=== PATIENT | female | born 1955 | race Caucasian/White ===

== ENCOUNTER 2017-02-18 11:03 | Inpatient (IN) | payer MEDICAID ==
[2017-02-18] VITALS (19 sets, daily range): BP systolic 97–166; BP diastolic 52–98; PULSE 101–121; RESP 12–34; TEMP 98.1–98.5; O2SAT 92–100
[~2017-02-18] VITALS: Ht 165.1 cm; Wt 50.6 kg
[~2017-02-18 11:03] MED LIST: AMBI5TAB PO; ASPI-146 PO; Albuterol-Ipratropium Neb NEB; Budeson-Formot 160-4.5 Mg Inh INH; CIPR-9 PO; COMMODE 3-IN-11 MIS; GETGO ROLLING W1 MI1; HYDR-3580 PO; NEBULIZER1 MI1; OXYGENDME NAS.CANULA; PERI PO; PRED10 PO; THERM PO; VENTAER INH; WALKER WHEELS/F1 MIS; Z.0.OXYGENDME FM
[2017-02-18] MEDS ORDERED: MORPHINE SULFATE 4 MG/ML INJ IV PUSH ONE (11:30)
[2017-02-18] MEDS ORDERED: ONDANSETRON HCL 4 MG/2 ML VIAL IV PUSH ONE (11:30)
--- NOTE | 2017-02-18 11:39 | PD ---
HPI Chief Complaint: Fall Time Seen by Provider: 11:10 Travel History International Travel<30 days: No Contact w/Intl Traveler<30days: No Traveled to known affect area: No History of Present Illness HPI 61 yo female here for evaluation of left hip injury. Had a fall last night. No lost of consciousness. per patient landed on the side of a chair. Has had pain since. obvious shortening and internal rotation of the left hip since injury. Cannot ambulate. Recent injury and surgery on January [address] Nichole. Denies hitting his head or LOC. Denies taking any blood thinners. Allergies to medication. Per patient the pain is 5 out of 10. He hasn't taken anything for this. No other medical issues at this time. Patient was brought here by ambulance. [facility] Past Medical History Arthritis: Yes (RIGHT KNEE) Asthma: No Autoimmune Disease: No Blood Disorders: No Anxiety: No Depression: Yes Heart Rhythm Problems: No Cancer: No Cardiovascular Problems: Yes (HYPOTENSION) High Cholesterol: No Chemotherapy: No Chest Pain: No Congestive Heart Failure: No COPD: Yes Cerebrovascular Accident: No Coronary Artery Disease: No Diabetes: No Diminished Hearing: No Endocrine: No Gastrointestinal Disorders: Yes GERD: No Glaucoma: No Genitourinary: Yes (BLADDER RETENTION ) Headaches: No Hepatitis: No Hiatal Hernia: No Hypertension: No Immune Disorder: No Kidney Stones: No Musculoskeletal: Yes Neurologic: Yes Psychiatric: Yes Reproductive: No Respiratory: Yes Migraines: Yes Myocardial Infarction: No Pneumonia: Yes Radiation Therapy: No Renal Failure: No Seizures: No Sickle Cell Disease: No Sleep Apnea: No Thyroid Disease: No Ulcer: No ?: Not Menopausal: Yes : 1 Para: 1 Tubal Ligation: Yes Past Surgical History Abdominal Surgery: Yes (LAPOROSCOPY) AICD: No Arteriovenous Shunt: No Cardiac Surgery: No Ear Surgery: No Endocrine Surgery: No Eye Surgery: No Genitourinary Surgery: Yes (BLADDER STRETCHED X2) Insulin Pump: No Joint Replacement: Yes (LEFT HIP SURGERY) Oral Surgery: No Pacemaker: No Thoracic Surgery: No Social History Alcohol Use: No Tobacco Use: Yes Substance Use: No Allergies-Medications (Allergen,Severity, Reaction): Coded Allergies: No Known Allergies (Verified Allergy, Unknown, 02/18/17) Reported Meds & Prescriptions Reported Meds & Active Scripts Active Hydrocodone-Acetamin 7.5-325 (Hydrocodone/Acetaminophen) 7.5 Mg-325 Mg Tablet 1 Tab PO Q6HR PRN Prednisone 10 Mg Tab 10 Mg PO DAILY Ventolin Hfa 18 GM Inh (Albuterol Sulfate) 90 Mcg/Act Aer 2 Puff INH Q4-6H PRN Thera M Plus (Multivitamins/Minerals Therapeutic) 1 Tab 1 Tab PO BID Ambien (Zolpidem Tartrate) 5 Mg Tab 5 Mg PO HS PRN Oxygen (O2) Device Liter CEFERINO.CANULA CONTINUOUS Oxygen Concentrator Portable Gaseous 2 L/min via Nasal Canula Continuous For 99 months Reported Miralax Powder (Polyethylene Glycol 3350 Powder) 17 Gm Powd 17 Gm PO DAILY PRN Mix and dissolve one measuring capful (17 grams) in water or juice. Symbicort Inh (Budesonide/Formoterol Fumarate) 160-4.5 Mcg/Act Aero 1 Puff INH Q12HR Duoneb (Ipratropium-Albuterol Neb) 0.5-2.5 Mg/3 Ml Neb 3 Ml NEB Q2HR PRN Aspirin Adult Low Strength (Aspirin) 81 Mg Tabdr 81 Mg PO DAILY Review of Systems Except as stated in HPI: all other systems reviewed are Neg Physical Exam Narrative GENERAL: SKIN: Warm and dry. HEAD: Atraumatic. Normocephalic. EYES: Pupils equal and round. No scleral icterus. No injection or drainage. ENT: No nasal bleeding or discharge. Mucous membranes pink and moist. Tongue is midline. No uvula deviation. NECK: Trachea midline. No JVD. CARDIOVASCULAR: Regular rate and rhythm. No murmurs, S3, S4. RESPIRATORY: No accessory muscle use. Clear to auscultation. Breath sounds equal bilaterally. GASTROINTESTINAL: Abdomen soft, non-tender, nondistended. Hepatic and splenic margins not palpable. MUSCULOSKELETAL: Extremities without clubbing, cyanosis, or edema. No obvious deformities in all extremities with the exception of the left hip for which patient has internal rotation as well as shortening of the leg to the level of the hip. Patient has 2+ pulses bilaterally. Neurovascular intact. Full range of motion of the upper and lower extremities bilaterally with exception of the left hip as stated previously. NEUROLOGICAL: Awake and alert. No obvious cranial nerve deficits. Motor grossly within normal limits. Five out of 5 muscle strength in the arms and legs. Normal speech. PSYCHIATRIC: Appropriate mood and affect; insight and judgment normal. Data Data Last Documented VS Vital Signs Date Time Temp Pulse Resp B/P (MAP) Pulse Ox O2 Delivery O2 Flow Rate FiO2 02/18/17 13:51 112 20 166/84 (111) 98 Nasal Cannula 2.00 02/18/17 11:27 98.3 Orders Orders Electrocardiogram (02/18/17 11:16) Complete Blood Count With Diff (02/18/17 11:16) Basic Metabolic Panel (Bmp) (02/18/17 11:16) Magnesium (Mg) (02/18/17 11:16) Iv Access Insert/Monitor (02/18/17 11:16) Morphine Inj (Morphine Inj) (02/18/17 11:30) Ondansetron Inj (Zofran Inj) (02/18/17 11:30) Hip, Uni(Ap&Lat) W Ap Pelvis (02/18/17 ) Propofol 200 Mg/20 Ml Inj (Diprivan 200 (02/18/17 12:30) Urinary Catheter Insert/Apply (02/18/17 13:33) Immobilizer Knee 20 Inch (02/18/17 ) Vital Signs (Adult) Q4H (02/18/17 15:13) Activity Bed Rest (02/18/17 15:13) Apron Worker / Telemetry .CONTINUOUS (02/18/17 15:13) Diet Npo (02/18/17 Dinner) Sodium Chloride 0.9% Flush (Ns Flush) (02/18/17 15:15) Sodium Chloride 0.9% Flush (Ns Flush) (02/18/17 21:00) Basic Metabolic Panel (Bmp) (02/19/17 06:00) Complete Blood Count With Diff (02/19/17 06:00) Pt Request For Service (02/18/17 15:13) Case Management Consult (02/18/17 15:13) Naloxone Inj (Narcan Inj) (02/18/17 15:15) Consult Orthopedic (02/18/17 ) Morphine Inj (Morphine Inj) (02/18/17 15:15) Albuterol-Ipratropium Neb (Duoneb Neb) (02/18/17 16:00) Albuterol-Ipratropium Neb (Duoneb Neb) (02/18/17 15:15) Resp Oxygen Nasal Cannula (02/18/17 ) Chest, Single Ap (02/18/17 ) Coag Profile (02/18/17 15:17) Type And Screen (02/18/17 15:17) Admit Order (Ed Use Only) (02/18/17 15:18) Labs Laboratory Tests Test 02/18/17 11:40 White Blood Count 16.5 TH/MM3 Red Blood Count 4.44 MIL/MM3 Hemoglobin 14.6 GM/DL Hematocrit 43.4 % Mean Corpuscular Volume 97.7 FL Mean Corpuscular Hemoglobin 32.9 PG Mean Corpuscular Hemoglobin Concent 33.6 % Red Cell Distribution Width 15.5 % Platelet Count 380 TH/MM3 Mean Platelet Volume 8.2 FL Neutrophils (%) (Auto) 78.7 % Lymphocytes (%) (Auto) 12.5 % Monocytes (%) (Auto) 7.7 % Eosinophils (%) (Auto) 0.8 % Basophils (%) (Auto) 0.3 % Neutrophils # (Auto) 13.0 TH/MM3 Lymphocytes # (Auto) 2.1 TH/MM3 Monocytes # (Auto) 1.3 TH/MM3 Eosinophils # (Auto) 0.1 TH/MM3 Basophils # (Auto) 0.0 TH/MM3 CBC Comment DIFF FINAL Differential Comment Blood Urea Nitrogen 25 MG/DL Creatinine 0.63 MG/DL Random Glucose 89 MG/DL Calcium Level 9.5 MG/DL Magnesium Level 1.9 MG/DL Sodium Level 137 MEQ/L Potassium Level 4.4 MEQ/L Chloride Level 101 MEQ/L Carbon Dioxide Level 31.7 MEQ/L Anion Gap 4 MEQ/L Estimat Glomerular Filtration Rate 96 ML/MIN MDM Medical Decision Making Medical Screen Exam Complete: Yes Emergency Medical Condition: Yes Medical Record Reviewed: Yes Interpretation(s) CBC & BMP Diagram 02/18/17 11:40 Calcium Level 9.5, Magnesium Level 1.9 Last Impressions Hip and Pelvis X-Ray 02/18/17 0000 Signed Impressions: Service Date/Time: Saturday, February 18, 2017 12:12 - CONCLUSION: Dislocated left hip prosthesis. Bonifacio Hinojosa MD EKG shows sinus rhythm with no sign of acute ischemia or arrhythmia read by me and attending. Differential Diagnosis X-ray fracture versus dislocation versus contusion versus bruise Narrative Course 61-year-old female that presents to the ED for evaluation of left hip injury. Patient was properly examined and was found to have signs and symptoms concerning for fracture versus dislocation. Labs and imaging ordered. Labs and imaging showed dislocation. Case discussed with my attending Dr. Gonzalez who wants me to consult with Dr. Nichole as he is concerned and spoke the ball and socket dislocated. I spoke with Dr. Nichole who recommends that we try to reduce the dislocation. My attending agree with this. After obtaining written consent by the patient to perform conscious sedation and she agreed to procedure multiple attempts were done by my attending and the residential gas heat technician with no improvement of dislocation. My attending recommends that we speak with the orthopedic surgeon again. Dr Nichole recommends admission to medicine and possible surgery today. This was discussed with the patient agrees to proceed. Dr. hu agrees to admission. Diagnosis Primary Impression: Hip dislocation, left Qualified Codes: S73.005A - Unspecified dislocation of left hip, initial encounter Additional Impression: COPD (chronic obstructive pulmonary disease) Qualified Codes: J44.9 - Chronic obstructive pulmonary disease, unspecified Admitting Information Admitting Physician Requests: Admit Seun Weems Feb 18, 2017 11:39
[2017-02-18] MEDS ORDERED: ASPI81TA16 PO (11:52)
[2017-02-18] MEDS ORDERED: IPRASOL NEB (11:52)
[2017-02-18] MEDS ORDERED: SYMB160A INH (11:52)
[2017-02-18] MEDS ORDERED: MIRA3350 PO (11:53)
[2017-02-18 12:05] LABS: BASOPHIL % 0.3 % (0.0-2.0); EOSINOPHIL # 0.1 TH/MM3 (0-0.4); EOSINOPHIL % 0.8 % (0.0-4.0); HEMATOCRIT 43.4 % (35.0-46.0); HEMO FLAGS DIFF FINAL; LYMPH % 12.5 % (9.0-44.0); LYMPHOCYTE # 2.1 TH/MM3 (1.0-4.8); MEAN CELL VOLUME 97.7 FL (80.0-100.0); MEAN CORPUSCULAR HEMOGLOBIN 32.9 PG (27.0-34.0); MEAN CORPUSCULAR HGB CONC 33.6 % (32.0-36.0); MONO % 7.7 % (0.0-8.0); NEUT % 78.7 % (16.0-70.0); PLATELET COUNT 380 TH/MM3 (150-450); RED BLOOD COUNT 4.44 MIL/MM3 (4.00-5.30); RED CELL DISTRIBUTION WIDTH 15.5 % (11.6-17.2); WHITE BLOOD COUNT 16.5 TH/MM3 (4.0-11.0)
[2017-02-18 12:25] LABS: BICARBONATE 31.7 MEQ/L (21.0-32.0); MAGNESIUM 1.9 MG/DL (1.5-2.5); POTASSIUM 4.4 MEQ/L (3.5-5.1)
[2017-02-18] MEDS ORDERED: PROPOFOL 200 MG/20 ML AMP IV ONE (12:30)
--- NOTE | 2017-02-18 13:17 | RADRPT ---
EXAM DATE/TIME: 02/18/2017 12:12 [facility] COMPARISON: HIP LEFT (AP&LAT 2/3VWS) W AP PELVIS, January 11, 2017, 10:08. INDICATIONS : Left hip pain, fall. MEDICAL HISTORY : None. SURGICAL HISTORY : ORIF left hip ENCOUNTER: Initial ACUITY: 2 days PAIN SCORE: 9/10 LOCATION: Left hip FINDINGS: Examination of the left hip was performed with AP Pelvis. The left hip replacement including the acet abular cup is dislocated superiorly to the acetabulum. Bony structures are intact. There is no eviden ce of acute fracture. CONCLUSION: Dislocated left hip prosthesis. Bonifacio Hinojosa MD on February 18, 2017 at 13:13 Board Certified Radiologist. This report was verified electronically.
--- NOTE | 2017-02-18 13:56 | PD ---
Physical Exam Date Seen by Provider: Feb 18, 2017 Time Seen by Provider: 13:51 Narrative I was asked to see the patient in [place] [id number] for conscious sedation and reduction of a left hip dislocation. The patient was initially seen by Seun Weems PA-C, please refer to the initial history, physical, diagnostic evaluation, and treatment modality plan. Data Data Last Documented VS Vital Signs Date Time Temp Pulse Resp B/P (MAP) Pulse Ox O2 Delivery O2 Flow Rate FiO2 02/18/17 13:51 112 20 166/84 (111) 98 Nasal Cannula 2.00 02/18/17 11:27 98.3 Orders Orders Electrocardiogram (02/18/17 11:16) Complete Blood Count With Diff (02/18/17 11:16) Basic Metabolic Panel (Bmp) (02/18/17 11:16) Magnesium (Mg) (02/18/17 11:16) Iv Access Insert/Monitor (02/18/17 11:16) Morphine Inj (Morphine Inj) (02/18/17 11:30) Ondansetron Inj (Zofran Inj) (02/18/17 11:30) Hip, Uni(Ap&Lat) W Ap Pelvis (02/18/17 ) Propofol 200 Mg/20 Ml Inj (Diprivan 200 (02/18/17 12:30) Urinary Catheter Insert/Apply (02/18/17 13:33) Labs Laboratory Tests Test 02/18/17 11:40 White Blood Count 16.5 TH/MM3 Red Blood Count 4.44 MIL/MM3 Hemoglobin 14.6 GM/DL Hematocrit 43.4 % Mean Corpuscular Volume 97.7 FL Mean Corpuscular Hemoglobin 32.9 PG Mean Corpuscular Hemoglobin Concent 33.6 % Red Cell Distribution Width 15.5 % Platelet Count 380 TH/MM3 Mean Platelet Volume 8.2 FL Neutrophils (%) (Auto) 78.7 % Lymphocytes (%) (Auto) 12.5 % Monocytes (%) (Auto) 7.7 % Eosinophils (%) (Auto) 0.8 % Basophils (%) (Auto) 0.3 % Neutrophils # (Auto) 13.0 TH/MM3 Lymphocytes # (Auto) 2.1 TH/MM3 Monocytes # (Auto) 1.3 TH/MM3 Eosinophils # (Auto) 0.1 TH/MM3 Basophils # (Auto) 0.0 TH/MM3 CBC Comment DIFF FINAL Differential Comment Blood Urea Nitrogen 25 MG/DL Creatinine 0.63 MG/DL Random Glucose 89 MG/DL Calcium Level 9.5 MG/DL Magnesium Level 1.9 MG/DL Sodium Level 137 MEQ/L Potassium Level 4.4 MEQ/L Chloride Level 101 MEQ/L Carbon Dioxide Level 31.7 MEQ/L Anion Gap 4 MEQ/L Estimat Glomerular Filtration Rate 96 ML/MIN [facility] Medical Record Reviewed: Yes Supervised Visit with SHEA: Yes Interpretation(s) Last Impressions Hip and Pelvis X-Ray 02/18/17 0000 Signed Impressions: Service Date/Time: Saturday, February 18, 2017 12:12 - CONCLUSION: Dislocated left hip prosthesis. Bonifacio Hinojosa MD Laboratory Tests Test 02/18/17 11:40 White Blood Count 16.5 TH/MM3 Red Blood Count 4.44 MIL/MM3 Hemoglobin 14.6 GM/DL Hematocrit 43.4 % Mean Corpuscular Volume 97.7 FL Mean Corpuscular Hemoglobin 32.9 PG Mean Corpuscular Hemoglobin Concent 33.6 % Red Cell Distribution Width 15.5 % Platelet Count 380 TH/MM3 Mean Platelet Volume 8.2 FL Neutrophils (%) (Auto) 78.7 % Lymphocytes (%) (Auto) 12.5 % Monocytes (%) (Auto) 7.7 % Eosinophils (%) (Auto) 0.8 % Basophils (%) (Auto) 0.3 % Neutrophils # (Auto) 13.0 TH/MM3 Lymphocytes # (Auto) 2.1 TH/MM3 Monocytes # (Auto) 1.3 TH/MM3 Eosinophils # (Auto) 0.1 TH/MM3 Basophils # (Auto) 0.0 TH/MM3 CBC Comment DIFF FINAL Differential Comment Blood Urea Nitrogen 25 MG/DL Creatinine 0.63 MG/DL Random Glucose 89 MG/DL Calcium Level 9.5 MG/DL Magnesium Level 1.9 MG/DL Sodium Level 137 MEQ/L Potassium Level 4.4 MEQ/L Chloride Level 101 MEQ/L Carbon Dioxide Level 31.7 MEQ/L Anion Gap 4 MEQ/L Estimat Glomerular Filtration Rate 96 ML/MIN Differential Diagnosis Differential diagnosis includes dislocation, fracture, contusion, hematoma, postoperative infection. Narrative Course The patient was initially evaluated by Seun Weems PA-C, please refer to initial history, physical, diagnostic evaluation, treatment modality plan. I was asked to see the patient regards to conscious sedation for reduction of left hip dislocation. The patient was placed on O2, she is on O2 at home via nasal cannula 2 L per day. Respiratory therapy, nursing staff, and remote sensing technician were at bedside. The patient was administered propofol 80 mg intravenously, we're on able to reduce the patient's left hip dislocation. Therefore, patient will be admitted for definitive operative management by her orthopedic surgeon, Dr. Zheng. Procedures Procedure Narrative After the risks and benefits were discussed the following procedure was performed: MODERATE SEDATION: The patient was placed on a radiation monitor and pulse oximetry. An ambu bag and suction was immediately available at bedside. The patient was monitored by the nurse. Oxygen saturation, heart rate and blood pressure were monitored. Procedural sedation was acheived using propofol 80 milligrams. The patient was observed until awake and alert. Procedural Sedation time in attendance was 30 minutes. Production a left hip dislocation was attempted under conscious sedation, however, we were unable to reduce the patient's left hip dislocation. Diagnosis Primary Impression: Hip dislocation, left Qualified Codes: S73.005A - Unspecified dislocation of left hip, initial encounter Admitting Information Admitting Physician Requests: Admit Kojo Gonzalez MD Feb 18, 2017 13:56
--- NOTE | 2017-02-18 14:41 | EKG ---
Date Performed: 02/18/2017 Time Performed: 11:34:00 PTAGE: 61 years EKG: SINUS TACHYCARDIA POSSIBLE RIGHT ATRIAL ENLARGEMENT LEFT ATRIAL ENLARGEMENT ABNORMAL ECG PREVIOUS TRACING : 01/11/2017 16.02 DOCTOR: Ervin Parks Interpretating Date/Time 02/18/2017 14:41:18
[2017-02-18] MEDS ORDERED: NALOXONE HCL 0.4 MG/ML AMP IV PUSH PRN (15:15)
[2017-02-18] MEDS ORDERED: RESP: ALBUTEROL 2.5 MG/IPRATROPIUM 0.5 MG NEB (PRN) NEB (15:15)
[2017-02-18] MEDS ORDERED: SODIUM CHLORIDE 0.9% FLUSH 10 ML FLUSH IV FLUSH PRN (15:15)
[2017-02-18 15:50] LABS: APTT (PATIENT) 25.5 SEC (24.3-30.1); PROTHROMBIN TIME - PATIENT 9.9 SEC (9.8-11.6)
[2017-02-18] MEDS ORDERED: RESP: ALBUTEROL 2.5 MG/IPRATROPIUM 0.5 MG NEB (SCH) NEB (16:00)
--- NOTE | 2017-02-18 16:04 | RADRPT ---
EXAM DATE/TIME: 02/18/2017 15:43 [facility] COMPARISON: CT THORAX W CONTRAST, January 10, 2017, 18:08. CHEST SINGLE AP, January 19, 2017, 15:28. HIP LEFT (AP&LAT 2/3VWS) W AP PELVIS, February 18, 2017, 12:12. INDICATIONS : Shortness of breath MEDICAL HISTORY : Chronic obstructive pulmonary disease SURGICAL HISTORY : None. ENCOUNTER: Initial ACUITY: 1 day PAIN SCORE: 0/10 LOCATION: Bilateral chest FINDINGS: The exam demonstrates moderate COPD changes. These are stable compared to previous study. The heart i s normal in size. The mediastinal contours are within normal limits. The visualized osseous structures are grossly intact. CONCLUSION: 1. COPD changes. Charbel Hernandez MD on February 18, 2017 at 16:00 Board Certified Radiologist. This report was verified electronically.
--- NOTE | 2017-02-18 16:05 | HHI.HP ---
[facility] Kika Perry Admission Diagnosis dislocation left hip arthroplasty, COPD Diagnoses: Travel History International Travel<30 Days: No Contact w/Intl Traveler <30 Da: No Traveled to Known Affected Are: No History of Present Illness History from patient, ER PA communication, and review of medical records. Patient is known to me from her prior hospitalization. Patient reported that early today a.m. around 3 AM or 4 AM, she was using her walker trying to go to the chair and she slipped and fell. She denies hitting her head. denies loss of consciousness. Denies being on blood thinners. She reports that she has had hip hemiarthroplasty on her left hip on January. Her records from that hospitalization reviewed. She reports that after the fall, her helped her to get up and put her to bed. As the morning goes on, she stated the pain was getting worse on her left hip and she was not able to get out of bed therefore finally called ambulance. no other symptoms Review of Systems Except as stated in HPI: all other systems reviewed are Neg Past Family Social History Past Medical History COPD- on home oxygen 2L tachycardia secondary to albuterol Migraine Headaches Past Surgical History Laparoscopy/BTL Urethra dilatation in childhood right hip hemiarthoplasty 01/2017 Allergies: Coded Allergies: No Known Allergies (Verified Allergy, Unknown, 02/18/17) Family History COPD Mother at the age of 73 from ovarian cancer and also had emphysema Father age 93 from complications of Alzheimer's dementia Two sisters are twins and have MS Social History COPD Depression Migraine Headaches . 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 Physical Exam Vital Signs Vital Signs Date Time Temp Pulse Resp B/P (MAP) Pulse Ox O2 Delivery O2 Flow Rate FiO2 02/18/17 13:51 112 20 166/84 (111) 98 Nasal Cannula 2.00 12/13/17 13:48 100 Nasal Cannula 2.00 02/18/17 13:45 111 27 130/80 (97) 100 Nasal Cannula 2.00 02/18/17 13:40 109 31 144/80 (101) 100 Nasal Cannula 2.00 02/18/17 13:37 117 34 141/84 (103) 100 Nasal Cannula 2.00 02/18/17 13:30 100 02/18/17 13:30 100 15.00 02/18/17 13:02 117 18 137/98 (111) 97 Nasal Cannula 2.00 02/18/17 13:00 24 02/18/17 11:27 98.3 118 24 123/80 (94) 100 Nasal Cannula 2.00 02/18/17 11:19 Nasal Cannula 2.00 02/18/17 11:10 98.3 121 28 123/80 (94) 99 Physical Exam GENERAL: This is a well-nourished, well-developed patient, thin lady, in no apparent distress. SKIN: No rashes, ecchymoses or lesions. Cool and dry. HEAD: Atraumatic. Normocephalic. EYES: No scleral icterus. No injection or drainage. ENT: Nose without bleeding, purulent drainage or septal hematoma. Airway patent. NECK: Trachea midline. No JVD CARDIOVASCULAR: Regular rate and rhythm without murmurs, gallops, or rubs. RESPIRATORY: Clear to auscultation. Breath sounds equal bilaterally. No wheezes , rales, or rhonchi. GASTROINTESTINAL: Abdomen soft, non-tender, nondistended. No guarding. MUSCULOSKELETAL: Extremities without clubbing, cyanosis, or edema. No calf tenderness. Left lower extremity shorter than the right with internal rotation. NEUROLOGICAL: Awake and alert. . Normal speech. Laboratory Laboratory Tests Test 02/18/17 11:40 White Blood Count 16.5 Red Blood Count 4.44 Hemoglobin 14.6 Hematocrit 43.4 Mean Corpuscular Volume 97.7 Mean Corpuscular Hemoglobin 32.9 Mean Corpuscular Hemoglobin Concent 33.6 Red Cell Distribution Width 15.5 Platelet Count 380 Mean Platelet Volume 8.2 Neutrophils (%) (Auto) 78.7 Lymphocytes (%) (Auto) 12.5 Monocytes (%) (Auto) 7.7 Eosinophils (%) (Auto) 0.8 Basophils (%) (Auto) 0.3 Neutrophils # (Auto) 13.0 Lymphocytes # (Auto) 2.1 Monocytes # (Auto) 1.3 Eosinophils # (Auto) 0.1 Basophils # (Auto) 0.0 CBC Comment DIFF FINAL Differential Comment Prothrombin Time 9.9 Prothromb Time International Ratio 1.0 Activated Partial Thromboplast Time 25.5 Blood Urea Nitrogen 25 Creatinine 0.63 Random Glucose 89 Calcium Level 9.5 Magnesium Level 1.9 Sodium Level 137 Potassium Level 4.4 Chloride Level 101 Carbon Dioxide Level 31.7 Anion Gap 4 Estimat Glomerular Filtration Rate 96 Result Diagram: 02/18/17 1140 02/18/17 1140 Imaging Last 48 hours Impressions Hip and Pelvis X-Ray 02/18/17 0000 Signed Impressions: Service Date/Time: Saturday, February 18, 2017 12:12 - CONCLUSION: Dislocated left hip prosthesis. MD Shruthi Levy VTE Risk Assessment Shruthi VTE Risk Assessment: Mod/High Risk (score >= 2) Caprini Risk Assessment Model Point Value = 1 Point Value = 2 Point Value = 3 Point Value = 5 Age 41-60 Minor surgery BMI > 25 kg/m2 Swollen legs Varicose veins or History of unexplained or recurrent spontaneous Oral contraceptives or hormone replacement Sepsis (< 1 month) Serious lung disease, including pneumonia (< 1 month) Abnormal pulmonary function Acute myocardial infarction Congestive heart failure (< 1 month) History of inflammatory bowel disease Medical patient at bed rest Age 61-74 Arthroscopic surgery Major open surgery (> 45 min) Laparoscopic surgery (> 45 min) Malignancy Confined to bed (> 72 hours) Immobilizing plaster cast Central venous access Age >= 75 History of VTE Family history of VTE Factor V Leiden Prothrombin [id number] Lupus anticoagulant Anticardiolipin antibodies Elevated serum homocysteine Heparin-induced thrombocytopenia Other congenital or acquired thrombophilia Stroke (< 1 month) Elective arthroplasty Hip, pelvis, or leg fracture Acute spinal cord injury (< 1 month) Prophylaxis Regimen Total Risk Factor Score Risk Level Prophylaxis Regimen 0-1 Low Early ambulation 2 Moderate Order ONE of the following: *Sequential Compression Device (SCD) *Heparin 5000 units SQ BID 3-4 Higher Order ONE of the following medications: *Heparin 5000 units SQ TID *Enoxaparin/Lovenox 40 mg SQ daily (WT < 150 kg, CrCl > 30 mL/min) *Enoxaparin/Lovenox 30 mg SQ daily (WT < 150 kg, CrCl > 10-29 mL/min) *Enoxaparin/Lovenox 30 mg SQ BID (WT < 150 kg, CrCl > 30 mL/min) AND/OR *Sequential Compression Device (SCD) 5 or more Highest Order ONE of the following medications: *Heparin 5000 units SQ TID (Preferred with Epidurals) *Enoxaparin/Lovenox 40 mg SQ daily (WT < 150 kg, CrCl > 30 mL/min) *Enoxaparin/Lovenox 30 mg SQ daily (WT < 150 kg, CrCl > 10-29 mL/min) *Enoxaparin/Lovenox 30 mg SQ BID (WT < 150 kg, CrCl > 30 mL/min) AND *Sequential Compression Device (SCD) Assessment and Plan Assessment and Plan Impression: Status post fall dislocation of right hip prosthesis not able to be reduced in ER o2 dependent COPD- on home oxygen 2L tachycardia secondary to albuterol Migraine Headaches Plan: Case discussed with orthopedics Dr. Nichole by ER physician. OR in a.m. NPO past midnight In ER, it was attempted to have the dislocated prosthesis placed back in to anesthesia. However it was unsuccessful and patient also desaturated because of anesthesia. She would need careful monitoring in OR. Start patient on Atrovent nebs. Resume rest of her medications. DVT prophylaxis with Lovenox postoperatively. Currently we'll provide SCD. Discussed Condition With patient, ER PA, nursing staff Physician Certification 2 Midnight Certification Type: Admission for Inpatient Services Order for Inpatient Services The services are ordered in accordance with Medicare regulations or non- Medicare payer requirements, as applicable. In the case of services not specified as inpatient-only, they are appropriately provided as inpatient services in accordance with the 2-midnight benchmark. Estimated LOS (days): 2 days is the estimated time the patient will need to remain in the hospital, assuming treatment plan goals are met and no additional complications. Post-Hospital Plan: Not yet determined Allen Rodriguez MD Feb 18, 2017 16:05
[2017-02-18] MEDS ORDERED: POLYETHYLENE GLYCOL 17 GM PKG PO PRN (16:30)
[2017-02-18] MEDS ORDERED: RESP: IPRATROPIUM 0.5 MG/2.5 ML NEB NEB PRN (16:30)
--- NOTE | 2017-02-18 19:11 | MB ---
cc: ENRIQUE BABB DATE OF CONSULTATION 02/18/2017 REASON FOR CONSULTATION Left hip dislocation. HISTORY The patient is a 59-year-old female who underwent left hip hemiarthroplasty on January 10, 2017 by the undersigned. The surgery was unremarkable. The patient was at home she says that she slipped and fell hitting a chair and then landing onto the ground and when she landed she noticed deformity and pain about the left hip. She was brought to [facility]. She was found to have a posterior hip dislocation. They did attempt closed reduction in the emergency room, this was unsuccessful. They called me to see if we can move forward with her reduction of the hip. The patient does not take any blood thinners. The patient does have COPD. Apparently she tolerated the attempted closed reduction without difficulty with her breathing. She describes pain around the hip. She does not describe any specific new numbness or tingling going down the left leg. PAST MEDICAL HISTORY Positive for: 1. Arthritis. 2. Hypotension. 3. Bladder retention. 4. Pneumonia. 5. And COPD. PAST SURGICAL HISTORY See the chart and as above. SOCIAL HISTORY The patient does not drink alcohol. She does smoke tobacco. ALLERGIES NO KNOWN DRUG ALLERGIES. MEDICATIONS See the chart. REVIEW OF SYSTEMS A 12 point review of systems is negative except as noted in the history of present illness. PHYSICAL EXAMINATION VITAL SIGNS: The patient's temperature is not recorded. Pulse is 112, respirations 22, blood pressure 166/84. GENERAL: She is awake, alert and oriented x3. Normal affect, insight and judgment. She is only in minimal distress due to the pain of the left hip. HEENT: Her head is atraumatic. Extraocular muscles intact. Oropharynx is moist. NECK: Supple. LUNGS: Have no audible wheeze and have symmetric chest wall rises with normal inspiratory effort. ABDOMEN: The abdomen is soft, nontender, nondistended. EXTREMITIES: The extremities of the bilateral wrists, elbows and shoulders did not have any significant tenderness. The left hip is internally rotated with some mild swelling. She has a well-healed posterior incision. There is only some mild swelling. No open wounds are noted. She does have tenderness to palpation of the proximal femur. The left knee has no effusion and no tenderness. She actually moves the toes well and has a 2+ dorsalis pedis pulse on the left foot. Right knee and right ankle have no swelling. There is no tenderness either. LABORATORY DATA The laboratory analysis shows hematocrit of 43.4, white cell count of 16.5, platelets of 380. Coagulation is pending. Chemistries creatinine 0.63. IMAGING X-rays are reviewed. The images and report shows the patient has a left hip hemiarthroplasty which is dislocated. The components appear to be intact without failure other than a new traumatic dislocation. IMPRESSION 1. Status post left hip hemiarthroplasty for a fracture on January 10, 2017. 2. New traumatic fall sustaining a traumatic left hip posterior dislocation which is irreducible per the emergency room staff. MEDICAL DECISION-MAKING I discussed the diagnosis in details with the patient. We discussed treatment options. I would like to move forward with a closed reduction attempt in the operative theater since the ER physician was unable to accomplish the closed reduction in the ER. We did discuss with her that if closed reduction attempt is unsuccessful, it is possible we could need to move forward with an open reduction of the hip through an incision which does increase the risks such as bleeding, infection, medical complications, heart attack, stroke, pneumonia, etc. Other options include revision of components, although when I go back and look at the original films she had very good leg lengths in appropriate positions to the components so revising this may or may not be ultimately necessary. She does want to move forward with surgical management. Depending on the findings I discussed the patient that either I will do it or it is possible my partner Dr. Humble Julian may move forward with the management having to do with operating room availability and trying to expedite this patient's care. All questions have been answered. MD MADDIE Rivera/KK /3:40 PM /6:35 PM JUANITO
[2017-02-18] MEDS: MORPHINE SULFATE 2 MG/ML INJ IV PUSH PRN (19:20)
[2017-02-18] MEDS: FAMOTIDINE 20 MG TAB PO SCH (19:20)
[2017-02-18] MEDS: SODIUM CHLORIDE 0.9% FLUSH 10 ML FLUSH IV FLUSH SCH (19:21)
[2017-02-18] MEDS: BUDESONIDE-FORMOTEROL 160/4.5 MCG INHALER INH SCH (21:16)
[2017-02-19] VITALS (10 sets, daily range): BP systolic 84–105; BP diastolic 51–65; PULSE 84–117; RESP 16–22; TEMP 98–99.4; O2SAT 90–97
[2017-02-19] MEDS: MORPHINE SULFATE 2 MG/ML INJ IV PUSH PRN ×2 (00:30→06:32)
[2017-02-19] MEDS ORDERED: LACTATED RINGER'S 1000 ML IV PRN (04:00)
[2017-02-19] MEDS ORDERED: POVIDONE IODINE 5% (ANTISEPSIS KIT) 4 APPLICATIONS EACH NARE PRN (04:00)
[2017-02-19] MEDS ORDERED: CHLORHEXIDINE GLUCONATE 2 % 1 PACK (2 CLOTHS) TOPICAL PRN (04:00)
[2017-02-19] MEDS: RESP: IPRATROPIUM 0.5 MG/2.5 ML NEB NEB SCH ×5 (04:58→21:19)
[2017-02-19 06:58] LABS: AUTOMATED NEUTROPHIL # 5.8 TH/MM3 (1.8-7.7); BASOPHIL % 0.5 % (0.0-2.0); EOSINOPHIL # 0.2 TH/MM3 (0-0.4); EOSINOPHIL % 1.7 % (0.0-4.0); HEMATOCRIT 32.4 % (35.0-46.0); HEMO FLAGS DIFF FINAL; LYMPH % 26.2 % (9.0-44.0); LYMPHOCYTE # 2.5 TH/MM3 (1.0-4.8); MEAN CELL VOLUME 96.7 FL (80.0-100.0); MEAN CORPUSCULAR HEMOGLOBIN 32.4 PG (27.0-34.0); MEAN CORPUSCULAR HGB CONC 33.6 % (32.0-36.0); MONO % 9.9 % (0.0-8.0); NEUT % 61.7 % (16.0-70.0); PLATELET COUNT 321 TH/MM3 (150-450); RED BLOOD COUNT 3.35 MIL/MM3 (4.00-5.30); RED CELL DISTRIBUTION WIDTH 15.1 % (11.6-17.2); WHITE BLOOD COUNT 9.5 TH/MM3 (4.0-11.0)
--- NOTE | 2017-02-19 07:02 | PD.ORT.PN ---
Subjective Subjective Remarks s/p fall at home. left hip pain. no other complaints s/p left hip hemiarthroplasty by Dr Nichole Objective Vitals Vital Signs Date Time Temp Pulse Resp B/P (MAP) Pulse Ox O2 Delivery O2 Flow Rate FiO2 02/19/17 05:04 93 Nasal Cannula 2.00 02/19/17 05:03 98.8 114 22 100/58 (72) 92 02/19/17 04:46 105 02/19/17 04:46 108 02/19/17 04:00 Nasal Cannula 2.00 02/19/17 00:56 99.4 117 16 104/51 (68) 90 02/19/17 00:00 Nasal Cannula 2.00 02/18/17 23:43 114 02/18/17 20:59 98.5 108 18 97/52 (67) 92 02/18/17 20:00 Nasal Cannula 2.00 02/18/17 19:48 107 02/18/17 17:31 98.1 109 18 105/58 (74) 94 02/18/17 17:31 02/18/17 17:12 103 22 108/67 (81) 100 Nasal Cannula 2.00 02/18/17 16:30 108 21 119/75 (90) 100 Nasal Cannula 2.00 02/18/17 16:00 101 12 117/68 (84) 100 Nasal Cannula 2.00 02/18/17 15:00 116 15 124/90 (101) 98 Nasal Cannula 2.00 02/18/17 14:30 118 23 133/82 (99) 100 Nasal Cannula 2.00 02/18/17 14:00 114 23 155/81 (105) 98 Nasal Cannula 2.00 02/18/17 13:51 112 20 166/84 (111) 98 Nasal Cannula 2.00 02/18/17 13:48 100 Nasal Cannula 2.00 02/18/17 13:45 111 27 130/80 (97) 100 Nasal Cannula 2.00 02/18/17 13:40 109 31 144/80 (101) 100 Nasal Cannula 2.00 02/18/17 13:37 117 34 141/84 (103) 100 Nasal Cannula 2.00 02/18/17 13:30 100 02/18/17 13:30 100 15.00 02/18/17 13:02 117 18 137/98 (111) 97 Nasal Cannula 2.00 02/18/17 13:00 24 02/18/17 11:27 98.3 118 24 123/80 (94) 100 Nasal Cannula 2.00 02/18/17 11:19 Nasal Cannula 2.00 02/18/17 11:10 98.3 121 28 123/80 (94) 99 I/O 02/18/17 02/18/17 02/18/17 02/19/17 02/19/17 02/19/17 07:00 15:00 23:00 07:00 15:00 23:00 Intake Total 120 ml Output Total 700 ml Balance -700 ml 120 ml Intake Oral 120 ml Output Urine Total 700 ml # Voids 0 0 # Bowel Movements 0 Result Diagram: 02/18/17 1140 02/18/17 1140 Other Results Laboratory Tests Test 02/18/17 11:40 Prothromb Time International Ratio 1.0 RATIO Prothrombin Time 9.9 SEC (9.8-11.6) Objective Remarks LLE: pain with motion. nvi Assessment & Plan Assessment and Plan 1) Left Hip Hemiarthroplasty s/p dislocation -npo -consents -surgery today for closed vs open reduction of left hip with Moose Murphy/Yard Conductor PA Feb 19, 2017 07:02
[2017-02-19 07:41] LABS: BICARBONATE 33.3 MEQ/L (21.0-32.0); POTASSIUM 3.9 MEQ/L (3.5-5.1)
[2017-02-19] MEDS: BUDESONIDE-FORMOTEROL 160/4.5 MCG INHALER INH SCH ×2 (09:00→21:46)
[2017-02-19] MEDS ORDERED: PNEUMOCOCCAL POLYVALENT INJ 25 MCG/0.5 ML SYR IM ONE (10:00)
[2017-02-19] MEDS ORDERED: DO NOT ADM ANY ANTICOAGULANT DRUGS PRN (10:20)
--- NOTE | 2017-02-19 10:21 | PD.OP ---
cc: Humble Killian MD Operative Report Date of Surgery: Feb 19, 2017 Preoperative Diagnosis: Dislocated left hip hemiarthroplasty Postoperative Diagnosis: Procedure: Closed reduction of left hip dislocation under anesthesia Anesthesia: Gen. Surgeon: Humble Killian Loader(s): Pablo Santizo PA-C Operation and Findings: Toyin is a 61-year-old female who sustained a left femoral neck fracture approximately 6 weeks ago. She was treated with left hip hemiarthroplasty by Dr. Nichole. Patient was doing well until yesterday when she slipped on a tile floor and fell. She had immediate left hip pain and deformity. She presented emergency room where x-rays revealed a left hip dislocated hemiarthroplasty. Informed consent was obtained and operative site was marked. She is brought to operating room. She was given IV sedation and LMA. Timeout procedure was performed. Procedure began with gentle manipulation of the hip. Traction was applied. The hip was gently rotated. The hip was manually reduced. Patient had good range of motion with good stability once the hip was reduced. Multiplanar fluoroscopy confirmed concentric reduction of the hip. There is no evidence of acute fracture. Patient was placed into a knee immobilizer. She was awakened and transferred to recovery room in stable condition. Humble Killian MD Feb 19, 2017 10:21
[2017-02-19] MEDS ORDERED: *morphine SULFATE 8 MG/ML PERIprocedure ONLY ONE (10:29)
[2017-02-19] MEDS ORDERED: MORPHINE SULFATE 4 MG/ML INJ IV PUSH PRN (10:30)
--- NOTE | 2017-02-19 11:28 | HHI.PR ---
Subjective Remarks Patient seen postoperatively. She reports she is feeling okay except for mild discomfort of the left hip. Objective Vitals Vital Signs Date Time Temp Pulse Resp B/P (MAP) Pulse Ox O2 Delivery O2 Flow Rate FiO2 02/19/17 10:24 98.6 100 15 108/64 (79) 95 Nasal Cannula 3 02/19/17 08:00 98.6 101 20 84/52 (63) 95 02/19/17 05:04 93 Nasal Cannula 2.00 02/19/17 05:03 98.8 114 22 100/58 (72) 92 02/19/17 04:46 105 02/19/17 04:46 108 02/19/17 04:00 Nasal Cannula 2.00 02/19/17 00:56 99.4 117 16 104/51 (68) 90 02/19/17 00:00 Nasal Cannula 2.00 02/18/17 23:43 114 02/18/17 20:59 98.5 108 18 97/52 (67) 92 02/18/17 20:00 Nasal Cannula 2.00 02/18/17 19:48 107 02/18/17 17:31 98.1 109 18 105/58 (74) 94 02/18/17 17:31 02/18/17 17:12 103 22 108/67 (81) 100 Nasal Cannula 2.00 02/18/17 16:30 108 21 119/75 (90) 100 Nasal Cannula 2.00 02/18/17 16:00 101 12 117/68 (84) 100 Nasal Cannula 2.00 02/18/17 15:00 116 15 124/90 (101) 98 Nasal Cannula 2.00 02/18/17 14:30 118 23 133/82 (99) 100 Nasal Cannula 2.00 02/18/17 14:00 114 23 155/81 (105) 98 Nasal Cannula 2.00 02/18/17 13:51 112 20 166/84 (111) 98 Nasal Cannula 2.00 02/18/17 13:48 100 Nasal Cannula 2.00 02/18/17 13:45 111 27 130/80 (97) 100 Nasal Cannula 2.00 02/18/17 13:40 109 31 144/80 (101) 100 Nasal Cannula 2.00 02/18/17 13:37 117 34 141/84 (103) 100 Nasal Cannula 2.00 02/18/17 13:30 100 02/18/17 13:30 100 15.00 02/18/17 13:02 117 18 137/98 (111) 97 Nasal Cannula 2.00 02/18/17 13:00 24 I/O 02/18/17 02/18/17 02/18/17 02/19/17 02/19/17 02/19/17 07:00 15:00 23:00 07:00 15:00 23:00 Intake Total 120 ml 200 ml Output Total 700 ml Balance -700 ml 120 ml 200 ml Intake Oral 120 ml IV Total 200 ml Output Urine Total 700 ml # Voids 0 0 # Bowel Movements 0 Result Diagram: 02/19/17 0545 02/19/17 0545 Objective Remarks GENERAL: This is a well-nourished, well-developed patient, in no apparent distress. CARDIOVASCULAR: Normal rate and regular rhythm without murmurs, gallops, or rubs. RESPIRATORY: Good respiratory efforts. Breath sounds equal and clear to auscultation bilaterally. GASTROINTESTINAL: Abdomen soft, non-tender, non-distended. Normal active bowel sounds MUSCULOSKELETAL: Extremities without cyanosis, or edema. NEURO: Alert & Oriented x4 to person, place, time, situation. Moves all ext x4 PSYCH: Appropriate mood and affect. A/P Assessment and Plan 61-year-old female admitted after sustaining a mechanical fall and dislocation of right hip prosthesis. - Unable to be reduced in the emergency room. The patient is being followed by orthopedics. She underwent closed reduction of left hip dislocation under anesthesia - Continue PT. COPD: Not in exacerbation. - Continue home O2. Breathing treatments as needed. Continue home meds. DVT prophylaxis, start Tien Craig MD Feb 19, 2017 11:28
--- NOTE | 2017-02-19 13:28 | RADRPT ---
EXAM DATE/TIME: 02/19/2017 10:12 [facility] COMPARISON: No previous studies available for comparison. INDICATIONS : Left hip reduction in OR. MEDICAL HISTORY : Chronic obstructive pulmonary disease. SURGICAL HISTORY : None. ENCOUNTER: Initial ACUITY: 1 day PAIN SCORE: Non-responsive. LOCATION: Left hip FINDINGS: Intraprocedural fluoroscopy images of the left hip. Left hip arthroplasty with components in anatomic alignment and well-positioned. No gross bony fracture. CONCLUSION: 1. Status post left hip arthroplasty in anatomic alignment without significant bony fracture. Leonel Dominguez MD on February 19, 2017 at 13:26 Board Certified Radiologist. This report was verified electronically.
[2017-02-19] MEDS: ACETAMINOPHEN/HYDROcodone 325 MG/5 MG TAB PO PRN ×3 (14:02→21:56)
[2017-02-19] MEDS: ASPIRIN EC 81 MG TABEC PO SCH (14:03)
[2017-02-19] MEDS: predniSONE 10 MG TAB PO SCH (14:03)
[2017-02-19] MEDS: FAMOTIDINE 20 MG TAB PO SCH ×2 (14:03→21:46)
[2017-02-19] MEDS: SODIUM CHLORIDE 0.9% FLUSH 10 ML FLUSH IV FLUSH SCH ×2 (14:03→21:47)
[2017-02-19] MEDS: ENOXAPARIN SODIUM 40 MG/0.4 ML SYRINGE SQ SCH (21:46)
[2017-02-20] VITALS (8 sets, daily range): BP systolic 91–109; BP diastolic 52–84; PULSE 89–104; RESP 16–22; TEMP 98.1–98.8; O2SAT 90–96
[2017-02-20] MEDS: RESP: IPRATROPIUM 0.5 MG/2.5 ML NEB NEB SCH ×4 (03:46→22:00)
[2017-02-20] MEDS: ACETAMINOPHEN/HYDROcodone 325 MG/5 MG TAB PO PRN ×2 (04:04→06:45)
--- NOTE | 2017-02-20 07:20 | PD.ORT.PN ---
Subjective Subjective Remarks s/p fall at home. left hip pain. no other complaints s/p left hip hemiarthroplasty by Dr Nichole POd 1 s/p closed reduction of left hip dislocation doing well. reports pain that is not controlled by norco 5 Objective Vitals Vital Signs Date Time Temp Pulse Resp B/P (MAP) Pulse Ox O2 Delivery O2 Flow Rate FiO2 02/20/17 04:00 98.5 94 22 98/54 (69) 96 02/20/17 04:00 94 02/20/17 00:00 98.4 98 22 97/52 (67) 92 02/20/17 00:00 98 02/19/17 21:21 94 Nasal Cannula 3.00 02/19/17 20:00 Nasal Cannula 2.00 02/19/17 20:00 84 02/19/17 20:00 98.0 89 19 95/56 (69) 97 02/19/17 16:00 98.0 94 20 105/55 (72) 97 02/19/17 15:20 20 02/19/17 13:30 95 Nasal Cannula 3.00 02/19/17 12:00 98.4 97 20 101/65 (77) 95 02/19/17 11:15 98.6 91 18 97/57 (70) 99 Nasal Cannula 3 02/19/17 11:00 93 18 93/55 (68) 97 Nasal Cannula 3 02/19/17 10:45 91 17 96/52 (67) 97 Nasal Cannula 3 02/19/17 10:30 98 15 102/59 (73) 93 Nasal Cannula 3 02/19/17 10:24 98.6 100 15 108/64 (79) 95 Nasal Cannula 3 02/19/17 08:00 98.6 101 20 84/52 (63) 95 I/O 02/19/17 02/19/17 02/19/17 02/20/17 02/20/17 02/20/17 07:00 15:00 23:00 07:00 15:00 23:00 Intake Total 200 ml 200 ml Output Total 500 ml Balance 200 ml -300 ml Intake Oral 200 ml IV Total 200 ml Output Urine Total 500 ml # Bowel Movements 0 Result Diagram: 02/19/17 0545 02/19/1745 Objective Remarks LLE: +knee brace. good motion of ankle and toes. nvi Assessment & Plan Assessment and Plan 1) Left Hip Hemiarthroplasty s/p dislocation with closed reduction - POD1 -posterior hip precautions -WBAT -knee brace at all times -if doing well with therapy today, plan for DC home with [facility] -will follow up with Dr Nichole in 2 weeks Moose Duffy/First Torie CALVILLO Feb 20, 2017 07:20
--- NOTE | 2017-02-20 07:21 | HHI.FF ---
Face to Face Verification Diagnosis: (1) Hip dislocation, left Physical Therapy Gait training Hip: Total hip, Protocol: Left, Posterior hip precautions, Progress to weight bearing Canvas Knee Splint: At all times Left LE Weight Bearing: WB as tolerated I have seen patient Toyin Nelson on 02/20/17. My clinical findings support the need for the requested home health care services because: Ltd mobility - disease progression I certify that my clinical findings support that this patient is homebound because: Post-op weakness Moose Duffy/Scientific Research Associate PA Feb 20, 2017 07:21
[2017-02-20] MEDS ORDERED: ACETAMINOPHEN/HYDROcodone 325 MG/5 MG TAB PO PRN (07:30)
[2017-02-20 07:52] LABS: HEMATOCRIT 32.1 % (35.0-46.0); MEAN CELL VOLUME 97.3 FL (80.0-100.0); MEAN CORPUSCULAR HEMOGLOBIN 32.3 PG (27.0-34.0); MEAN CORPUSCULAR HGB CONC 33.3 % (32.0-36.0); PLATELET COUNT 277 TH/MM3 (150-450); RED CELL DISTRIBUTION WIDTH 15.5 % (11.6-17.2); REVIEW FLAG FINAL; WHITE BLOOD COUNT 8.9 TH/MM3 (4.0-11.0)
[2017-02-20] MEDS: BUDESONIDE-FORMOTEROL 160/4.5 MCG INHALER INH SCH ×2 (09:01→20:29)
[2017-02-20] MEDS: SODIUM CHLORIDE 0.9% FLUSH 10 ML FLUSH IV FLUSH SCH ×2 (09:01→20:28)
[2017-02-20] MEDS: ASPIRIN EC 81 MG TABEC PO SCH (09:01)
[2017-02-20] MEDS: predniSONE 10 MG TAB PO SCH (09:01)
[2017-02-20] MEDS: FAMOTIDINE 20 MG TAB PO SCH ×2 (09:01→20:28)
[2017-02-20] MEDS: CHOLECALCIFEROL (VIT D3) 5000 UNIT CAP PO SCH (09:01)
[2017-02-20] MEDS: ACETAMINOPHEN/HYDROcodone 325 MG/7.5 MG TAB PO PRN ×4 (09:46→22:40)
--- NOTE | 2017-02-20 12:45 | HHI.PR ---
Subjective Remarks Patient reports she is feeling okay except for pain. Her pain medication has been adjusted. No other issues. Objective Vitals Vital Signs Date Time Temp Pulse Resp B/P (MAP) Pulse Ox O2 Delivery O2 Flow Rate FiO2 02/20/17 12:00 98.6 104 16 109/66 (80) 93 02/20/17 11:31 92 Nasal Cannula 2.00 02/20/17 08:00 98.8 89 16 91/60 (70) 90 02/20/17 04:00 98.5 94 22 98/54 (69) 96 02/20/17 04:00 94 02/20/17 00:00 98.4 98 22 97/52 (67) 92 02/20/17 00:00 98 02/19/17 21:21 94 Nasal Cannula 3.00 02/19/17 20:00 Nasal Cannula 2.00 02/19/17 20:00 84 02/19/17 20:00 98.0 89 19 95/56 (69) 97 02/19/17 16:00 98.0 94 20 105/55 (72) 97 02/19/17 15:20 20 02/19/17 13:30 95 Nasal Cannula 3.00 I/O 02/19/17 02/19/17 02/19/17 02/20/17 02/20/17 02/20/17 07:00 15:00 23:00 07:00 15:00 23:00 Intake Total 200 ml 200 ml Output Total 500 ml Balance 200 ml -300 ml Intake Oral 200 ml IV Total 200 ml Output Urine Total 500 ml # Bowel Movements 0 Result Diagram: 02/20/17 0648 02/19/17 0545 Objective Remarks GENERAL: This is a well-nourished, well-developed patient, in no apparent distress. CARDIOVASCULAR: Normal rate and regular rhythm without murmurs, gallops, or rubs. RESPIRATORY: Good respiratory efforts. Breath sounds equal and clear to auscultation bilaterally. GASTROINTESTINAL: Abdomen soft, non-tender, non-distended. Normal active bowel sounds MUSCULOSKELETAL: Extremities without cyanosis, or edema. NEURO: Alert & Oriented x4 to person, place, time, situation. Moves all ext x4 PSYCH: Appropriate mood and affect. A/P Assessment and Plan 61-year-old female admitted after sustaining a mechanical fall and dislocation of right hip prosthesis. - Unable to be reduced in the emergency room. The patient is being followed by orthopedics. She underwent closed reduction of left hip dislocation under anesthesia - Continue PT. - Per Ortho, likely DC in AM with HHC and PT. COPD: Not in exacerbation. - Continue home O2. Breathing treatments as needed. Continue home meds. DVT prophylaxis: Lovenox Discharge Planning Plan to DC home with home health in a.. Tien Butler MD Feb 20, 2017 12:45
[2017-02-20] MEDS: MORPHINE SULFATE 2 MG/ML INJ IV PUSH PRN ×2 (16:57→20:29)
[2017-02-20] MEDS: ENOXAPARIN SODIUM 40 MG/0.4 ML SYRINGE SQ SCH (20:28)
[2017-02-21] VITALS (10 sets, daily range): BP systolic 97–119; BP diastolic 54–68; PULSE 83–95; RESP 16–20; TEMP 98.1–99; O2SAT 92–98
[2017-02-21] MEDS: MORPHINE SULFATE 2 MG/ML INJ IV PUSH PRN ×2 (00:28→05:25)
[2017-02-21] MEDS: RESP: IPRATROPIUM 0.5 MG/2.5 ML NEB NEB SCH ×4 (02:21→20:34)
[2017-02-21] MEDS: ACETAMINOPHEN/HYDROcodone 325 MG/7.5 MG TAB PO PRN ×6 (02:41→23:58)
--- NOTE | 2017-02-21 05:31 | RADRPT ---
EXAM DATE/TIME: 02/21/2017 04:47 [facility] COMPARISON: CHEST SINGLE AP, February 18, 2017, 15:43. INDICATIONS : Chest pain. MEDICAL HISTORY : Chronic obstructive pulmonary disease. SURGICAL HISTORY : ORIF left hip ENCOUNTER: Initial ACUITY: 1 day PAIN SCORE: 10/10 LOCATION: Left chest FINDINGS: Single AP view of the chest.. Mild patchy atelectasis versus consolidation at the inferior left lung base. Lungs otherwise clear. Hyperaeration suggesting emphysema. No evidence of pleural effusion or p neumothorax. Cardiomediastinal silhouette within normal limits. CONCLUSION: Mild patchy atelectasis versus consolidation left lung base. Espinoza Chavez MD on February 21, 2017 at 5:27 Board Certified Radiologist. This report was verified electronically.
[2017-02-21] MEDS: predniSONE 10 MG TAB PO SCH (08:14)
[2017-02-21] MEDS: FAMOTIDINE 20 MG TAB PO SCH ×2 (08:14→19:59)
[2017-02-21] MEDS: ASPIRIN EC 81 MG TABEC PO SCH (08:15)
[2017-02-21] MEDS: CHOLECALCIFEROL (VIT D3) 5000 UNIT CAP PO SCH (08:15)
[2017-02-21] MEDS: BUDESONIDE-FORMOTEROL 160/4.5 MCG INHALER INH SCH ×2 (08:16→19:59)
[2017-02-21] MEDS: SODIUM CHLORIDE 0.9% FLUSH 10 ML FLUSH IV FLUSH SCH ×2 (08:17→20:00)
--- NOTE | 2017-02-21 10:37 | EKG ---
Date Performed: 02/21/2017 Time Performed: 04:41:58 PTAGE: 61 years EKG: Normal ECG NO PREVIOUS TRACING DOCTOR: Derrick Barfield Interpretating Date/Time 02/21/2017 10:35:10
[2017-02-21] MEDS ORDERED: PNEUMOCOCCAL POLYVALENT INJ 25 MCG/0.5 ML SYR IM ONE (13:00)
--- NOTE | 2017-02-21 13:33 | HHI.PR ---
Subjective Remarks Patient is having left sided pleuritic chest pain. Chest x-ray concerning for pneumonia. urinary retention requiring straight cath. She reports a history of bladder procedure when she was about 7 years old. She does not remember the details. Objective Vitals Vital Signs Date Time Temp Pulse Resp B/P (MAP) Pulse Ox O2 Delivery O2 Flow Rate FiO2 02/21/17 12:03 99.0 92 18 97/54 (68) 94 02/21/17 09:05 92 Nasal Cannula 2.00 02/21/17 08:00 98.5 90 18 119/65 (83) 94 02/21/17 08:00 93 02/21/17 07:00 2.00 02/21/17 04:00 84 02/21/17 04:00 98.4 88 16 109/68 (82) 95 02/21/17 00:00 83 02/21/17 00:00 98.4 88 18 105/66 (79) 97 02/20/17 22:00 96 Nasal Cannula 2.00 02/20/17 20:00 98.1 99 18 93/84 (87) 91 02/20/17 20:00 Nasal Cannula 2.00 02/20/17 20:00 95 02/20/17 16:00 95 02/20/17 16:00 98.8 97 16 101/58 (72) 94 I/O 02/20/17 02/20/17 02/20/17 02/21/17 02/21/17 02/21/17 07:00 15:00 23:00 07:00 15:00 23:00 Intake Total 200 ml 520 ml Output Total 500 ml 200 ml 1200 ml 450 ml Balance -300 ml -200 ml -680 ml -450 ml Intake Oral 200 ml 520 ml Output Urine Total 500 ml 200 ml 1200 ml 450 ml Bladder Scan Volume Amount 18 ml 250 ml 18 ml 382 ml 382 ml # Voids 0 # Bowel Movements 0 1 Result Diagram: 02/20/17 0648 02/19/17 0545 Objective Remarks GENERAL: This is a well-nourished, well-developed patient, in no apparent distress. CARDIOVASCULAR: Normal rate and regular rhythm without murmurs, gallops, or rubs. RESPIRATORY: Good respiratory efforts. Diminished breath sounds on the left base. Some discomfort with deep breathing. Rest of the lung lacey clear to auscultation. GASTROINTESTINAL: Abdomen soft, non-tender, non-distended. Normal active bowel sounds MUSCULOSKELETAL: Extremities without cyanosis, or edema. NEURO: Alert & Oriented x4 to person, place, time, situation. Moves all ext x4 PSYCH: Appropriate mood and affect. A/P Assessment and Plan 61-year-old female admitted after sustaining a mechanical fall and dislocation of right hip prosthesis. - Unable to be reduced in the emergency room. The patient is being followed by orthopedics. She underwent closed reduction of left hip dislocation under anesthesia - Continue PT. Early pneumonia: Patient is having pleuritic type chest pain. Chest x-ray personally reviewed. There is consolidation involving the left lower base. - Start Levaquin. - Breathing treatment as needed. - Supplemental oxygen as needed. Urinary retention: Postop day 3. - Patient endorsed a history of bladder procedures when she was a child. Straight cath 1 today. - Continue to monitor. If no improvement, will consult urology COPD: Not in exacerbation. - Continue home O2. Breathing treatments as needed. Continue home meds. DVT prophylaxis: Lovenox Discharge Planning Continue current treatment. Ensure urinary retention is resolving. Antibiotics for pneumonia. Reassess tomorrow. If cleared by Ortho and improved , may consider discharge with home health.. Tien Butler MD Feb 21, 2017 13:33
[2017-02-21] MEDS: LEVOFLOXACIN 750 MG PREMIX INJ 150 ML IV SCH (13:50)
[2017-02-21 14:20] LABS: AUTOMATED NEUTROPHIL # 7.7 TH/MM3 (1.8-7.7); BASOPHIL % 0.4 % (0.0-2.0); EOSINOPHIL % 0.4 % (0.0-4.0); HEMO FLAGS DIFF FINAL; LYMPH % 9.4 % (9.0-44.0); LYMPHOCYTE # 0.9 TH/MM3 (1.0-4.8); MEAN CELL VOLUME 96.6 FL (80.0-100.0); MEAN CORPUSCULAR HEMOGLOBIN 32.3 PG (27.0-34.0); MEAN CORPUSCULAR HGB CONC 33.4 % (32.0-36.0); MONO % 4.5 % (0.0-8.0); NEUT % 85.3 % (16.0-70.0); PLATELET COUNT 302 TH/MM3 (150-450); RED BLOOD COUNT 3.52 MIL/MM3 (4.00-5.30); RED CELL DISTRIBUTION WIDTH 15.5 % (11.6-17.2)
[2017-02-21] MEDS: ENOXAPARIN SODIUM 40 MG/0.4 ML SYRINGE SQ SCH (19:59)
[2017-02-21] MEDS: ZOLPIDEM TARTRATE 5 MG TAB PO PRN (21:29)
[2017-02-22] VITALS (12 sets, daily range): BP systolic 97–119; BP diastolic 57–70; PULSE 77–124; RESP 18–20; TEMP 98–98.9; O2SAT 92–97
[2017-02-22] MEDS: ACETAMINOPHEN/HYDROcodone 325 MG/7.5 MG TAB PO PRN ×5 (04:07→20:37)
[2017-02-22] MEDS: RESP: IPRATROPIUM 0.5 MG/2.5 ML NEB NEB SCH ×4 (04:40→20:51)
[2017-02-22] MEDS: BUDESONIDE-FORMOTEROL 160/4.5 MCG INHALER INH SCH ×2 (08:39→22:20)
[2017-02-22] MEDS: FAMOTIDINE 20 MG TAB PO SCH ×2 (08:39→22:19)
[2017-02-22] MEDS: ASPIRIN EC 81 MG TABEC PO SCH (08:39)
[2017-02-22] MEDS: predniSONE 10 MG TAB PO SCH (08:40)
[2017-02-22] MEDS: SODIUM CHLORIDE 0.9% FLUSH 10 ML FLUSH IV FLUSH SCH ×2 (08:40→22:19)
[2017-02-22] MEDS: CHOLECALCIFEROL (VIT D3) 5000 UNIT CAP PO SCH (08:40)
[2017-02-22 09:30] LABS: HEMATOCRIT 35.1 % (35.0-46.0); MEAN CELL VOLUME 96.6 FL (80.0-100.0); MEAN CORPUSCULAR HEMOGLOBIN 32.3 PG (27.0-34.0); MEAN CORPUSCULAR HGB CONC 33.4 % (32.0-36.0); PLATELET COUNT 284 TH/MM3 (150-450); RED BLOOD COUNT 3.63 MIL/MM3 (4.00-5.30); RED CELL DISTRIBUTION WIDTH 15.3 % (11.6-17.2); REVIEW FLAG FINAL; WHITE BLOOD COUNT 8.1 TH/MM3 (4.0-11.0)
--- NOTE | 2017-02-22 09:55 | PD.CONS ---
HPI Service Urology Consult Requested By Dr. Butler Reason for Consult Urinary retention Primary Care Physician Kika Perry Diagnosis: History of Present Illness 61-year-old female who is status post closed reduction of left hip dislocation on February 19 and has had problems urinating since. Patient is presently being managed with clean intermittent catheterization with residual urines greater than 400 cc. Upon further questioning the patient reports that she is been having voiding issues for quite some time and reports a very weak urinary stream. She reports that during childhood she needed to have her urethra dilated at least twice to facilitate bladder emptying. She denies dysuria or gross hematuria. She denies a history of recurrent uric tract infections. Upon her last hospitalization in January, she had similar problems voiding which subsequently improved. Review of Systems Constitutional: DENIES: Fever, Chills Gastrointestinal: DENIES: Abdominal pain Genitourinary: DENIES: Hematuria, Dysuria Except as stated in HPI: all other systems reviewed are Neg Past Family Social History Past Medical History COPD Hypotension Migraine headaches History pneumonia Past Surgical History Status post left hip arthroplasty and recent closed reduction of dislocation Status post urethral dilations in childhood Reported Medications Refer to EMR Allergies: Coded Allergies: No Known Allergies (Verified Allergy, Unknown, 02/18/17) Active Ordered Medications Refer to EMR Family History Reviewed and noncontributory Social History Long history tobacco use Denies alcohol use Denies intravenous drug abuse Physical Exam Vital Signs Date Time Temp Pulse Resp B/P (MAP) Pulse Ox O2 Delivery O2 Flow Rate FiO2 02/22/17 08:00 98.7 87 18 119/61 (80) 96 02/22/17 04:00 98.2 84 20 101/57 (72) 95 02/22/17 04:00 Nasal Cannula 2.00 02/22/17 03:46 77 02/22/17 00:00 Room Air 02/22/17 00:00 98.0 87 20 113/63 (80) 94 02/21/17 23:47 84 02/21/17 20:37 98 Nasal Cannula 2.00 02/21/17 20:00 98.4 88 20 113/58 (76) 98 02/21/17 20:00 Nasal Cannula 2.00 02/21/17 18:42 84 02/21/17 16:00 95 02/21/17 16:00 98.1 94 18 110/63 (79) 97 02/21/17 12:03 99.0 92 18 97/54 (29) 94 Physical Exam GENERAL: This is a well-nourished, well-developed patient, in no apparent distress. SKIN: No rashes, ecchymoses or lesions. Cool and dry. HEAD: Atraumatic. Normocephalic. No temporal or scalp tenderness. EYES: Pupils equal round and reactive. Extraocular motions intact. No scleral icterus. No injection or drainage. ENT: Nose without bleeding, purulent drainage or septal hematoma. Throat without erythema, tonsillar hypertrophy or exudate. Uvula midline. Airway patent. NECK: Trachea midline. No JVD or lymphadenopathy. Supple, nontender, no meningeal signs. GASTROINTESTINAL: Abdomen soft, non-tender, nondistended. No hepato-splenomegaly , or palpable masses. No guarding. GENITOURINARY: No CVA tenderness, bladder not distended MUSCULOSKELETAL: Extremities without clubbing, cyanosis, or edema. No joint tenderness, effusion, or edema noted. No calf tenderness. Negative Homans sign bilaterally. NEUROLOGICAL: Awake and alert. Cranial nerves II through XII intact. Motor and sensory grossly within normal limits. Five out of 5 muscle strength in all muscle groups. Normal speech. Lab results reviewed: Yes Laboratory Tests Test 02/21/17 14:00 02/22/17 08:30 White Blood Count 9.0 8.1 Red Blood Count 3.52 3.63 Hemoglobin 11.4 11.7 Hematocrit 34.0 35.1 Mean Corpuscular Volume 96.6 96.6 Mean Corpuscular Hemoglobin 32.3 32.3 Mean Corpuscular Hemoglobin Concent 33.4 33.4 Red Cell Distribution Width 15.5 15.3 Platelet Count 302 284 Mean Platelet Volume 8.0 8.5 Neutrophils (%) (Auto) 85.3 Lymphocytes (%) (Auto) 9.4 Monocytes (%) (Auto) 4.5 Eosinophils (%) (Auto) 0.4 Basophils (%) (Auto) 0.4 Neutrophils # (Auto) 7.7 Lymphocytes # (Auto) 0.9 Monocytes # (Auto) 0.4 Eosinophils # (Auto) 0.0 Basophils # (Auto) 0.0 CBC Comment DIFF FINAL Differential Comment Result Diagram: 02/22/17 0830 02/19/17 2491 Personally reviewed images: Yes Imaging Last Impressions Chest X-Ray 02/21/17 0457 Signed Impressions: Service Date/Time: Tuesday, February 21, 2017 04:47 - CONCLUSION: Mild patchy atelectasis versus consolidation left lung base. Espinoza Chavez MD Hip X-Ray 02/19/17 0000 Signed Impressions: Service Date/Time: , February 19, 2017 10:12 - CONCLUSION: 1. Status post left hip arthroplasty in anatomic alignment without significant bony fracture. Leonel Dominguez MD Hip and Pelvis X-Ray 02/18/17 0000 Signed Impressions: Service Date/Time: Saturday, February 18, 2017 12:12 - CONCLUSION: Dislocated left hip prosthesis. Bonifacio Hinojosa MD Assessment and Plan Assessment and Plan Urologic impression: #1 postoperative urinary retention #2 history urethral stenosis during childhood Recommendations: #1 continue with clean intermittent catheterization at least 4 times daily #2 we'll add Flomax 0.4 mg by mouth daily to facilitate bladder emptying #3 office follow up in approximately 2-3 weeks for reevaluation and consider cystoscopy and urodynamics if patient continues to have difficulty voiding [phone] Lucho Nino MD Feb 22, 2017 09:55
[2017-02-22 09:56] LABS: BICARBONATE 27.9 MEQ/L (21.0-32.0); POTASSIUM 3.9 MEQ/L (3.5-5.1)
[2017-02-22] MEDS: TAMSULOSIN HCL 0.4 MG CAP PO SCH (10:28)
[2017-02-22] MEDS: LEVOFLOXACIN 750 MG PREMIX INJ 150 ML IV SCH (12:04)
--- NOTE | 2017-02-22 13:49 | HHI.PR ---
Subjective Remarks Patient still having issues with urinary retention requiring straight catheterization. Otherwise states she is feeling better. Objective Vitals Vital Signs Date Time Temp Pulse Resp B/P (MAP) Pulse Ox O2 Delivery O2 Flow Rate FiO2 02/22/17 12:00 98.9 109 18 97/60 (72) 93 02/22/17 08:00 98.7 87 18 119/61 (80) 96 02/22/17 07:00 2.00 02/22/17 04:00 98.2 84 20 101/57 (72) 95 02/22/17 04:00 Nasal Cannula 2.00 02/22/17 03:46 77 02/22/17 00:00 Room Air 02/22/17 00:00 98.0 87 20 113/63 (80) 94 02/21/17 23:47 84 02/21/17 20:37 98 Nasal Cannula 2.00 02/21/17 20:00 98.4 88 20 113/58 (76) 98 02/21/17 20:00 Nasal Cannula 2.00 02/21/17 18:42 84 02/21/17 16:00 95 02/21/17 16:00 98.1 94 18 110/63 (79) 97 I/O 02/21/17 02/21/17 02/21/17 02/22/17 02/22/17 02/22/17 06:59 14:59 22:59 06:59 14:59 22:59 Intake Total 780 ml 480 ml Output Total 1225 ml 775 ml Balance -1225 ml 780 ml 480 ml -775 ml Intake Oral 480 ml 480 ml IV Total 300 ml Output Urine Total 1225 ml 775 ml Bladder Scan Volume Amount 250 ml 409 ml 439 ml 364 ml 382 ml 439 ml 382 ml # Voids 0 0 # Bowel Movements 0 Result Diagram: 02/22/1730 02/22/1730 Objective Remarks GENERAL: This is a well-nourished, well-developed patient, in no apparent distress. CARDIOVASCULAR: Normal rate and regular rhythm without murmurs, gallops, or rubs. RESPIRATORY: Good respiratory efforts. Diminished breath sounds on the left base. Some discomfort with deep breathing. Rest of the lung lacey clear to auscultation. GASTROINTESTINAL: Abdomen soft, non-tender, non-distended. Normal active bowel sounds MUSCULOSKELETAL: Extremities without cyanosis, or edema. NEURO: Alert & Oriented x4 to person, place, time, situation. Moves all ext x4 PSYCH: Appropriate mood and affect. A/P Assessment and Plan 61-year-old female admitted after sustaining a mechanical fall and dislocation of right hip prosthesis. - Unable to be reduced in the emergency room. The patient is being followed by orthopedics. She underwent closed reduction of left hip dislocation under anesthesia - Continue PT. Early pneumonia: Patient was having pleuritic type chest pain. Chest x-ray personally reviewed. There is consolidation involving the left lower base. - Continue Levaquin. - Breathing treatment as needed. - Supplemental oxygen as needed. Urinary retention: Postop day 4. - Appreciate urology following. Recommends continuing straight catheterization. Outpatient follow-up - We'll ask nursing to teach the patient to do clean self-catheterization. COPD: Not in exacerbation. - Continue home O2. Breathing treatments as needed. Continue home meds. DVT prophylaxis: Lovenox Discharge Planning Plan to discharge home tomorrow. Will need home health. Tien Butler MD Feb 22, 2017 13:49
[2017-02-22] MEDS: guaiFENesin E.R. 600 MG TAB PO SCH ×2 (18:50→22:19)
[2017-02-22] MEDS: ZOLPIDEM TARTRATE 5 MG TAB PO PRN (22:18)
[2017-02-22] MEDS: ENOXAPARIN SODIUM 40 MG/0.4 ML SYRINGE SQ SCH (22:19)
[2017-02-23] VITALS: BP 91/44; PULSE 86; RESP 17; TEMP 98; O2SAT 99
[2017-02-23] MEDS: ACETAMINOPHEN/HYDROcodone 325 MG/7.5 MG TAB PO PRN ×5 (00:28→16:43)
[2017-02-23 04:00] VITALS: BP 101/57; PULSE 101; RESP 18; TEMP 98.5; O2SAT 99
[2017-02-23] MEDS: RESP: IPRATROPIUM 0.5 MG/2.5 ML NEB NEB SCH ×3 (04:03→15:11)
[2017-02-23 08:00] VITALS: BP 103/56; PULSE 86; PULSE 95; RESP 18; TEMP 99.2; O2SAT 98
[2017-02-23] MEDS: CHOLECALCIFEROL (VIT D3) 5000 UNIT CAP PO SCH (08:32)
[2017-02-23] MEDS: guaiFENesin E.R. 600 MG TAB PO SCH (08:32)
[2017-02-23] MEDS: TAMSULOSIN HCL 0.4 MG CAP PO SCH (08:33)
[2017-02-23] MEDS: ASPIRIN EC 81 MG TABEC PO SCH (08:33)
[2017-02-23] MEDS: FAMOTIDINE 20 MG TAB PO SCH (08:33)
[2017-02-23] MEDS: predniSONE 10 MG TAB PO SCH (08:33)
[2017-02-23] MEDS: BUDESONIDE-FORMOTEROL 160/4.5 MCG INHALER INH SCH (08:35)
[2017-02-23] MEDS: SODIUM CHLORIDE 0.9% FLUSH 10 ML FLUSH IV FLUSH SCH (08:36)
[2017-02-23 09:13] VITALS: O2SAT 97
[2017-02-23] MEDS ORDERED: LEVO750T3 PO (11:40)
[2017-02-23] MEDS ORDERED: TAMS5CAP PO (11:40)
--- NOTE | 2017-02-23 11:41 | HHI.DS ---
Discharge Summary Admission Date Feb 18, 2017 at 15:20 Discharge Date: Feb 23, 2017 Admitting Diagnosis dislocation left hip arthroplasty, COPD (1) Hip dislocation, left ICD Code: S73.005A - Unspecified dislocation of left hip, initial encounter Status: Acute (2) Pneumonia ICD Code: J18.9 - Pneumonia, unspecified organism Status: Acute (3) Pulmonary emphysema ICD Code: J43.9 - Pulmonary emphysema Status: Chronic (4) Urinary retention ICD Code: R33.9 - Retention of urine, unspecified Status: Acute (5) COPD (chronic obstructive pulmonary disease) ICD Code: J44.9 - Chronic obstructive pulmonary disease, unspecified Status: Acute Procedures close reduction of left hip dislocation under anesthesia. Brief History - From Admission History of present illness from the admitting physician Patient reported that early today a.m. around 3 AM or 4 AM, she was using her walker trying to go to the chair and she slipped and fell. She denies hitting her head. denies loss of consciousness. Denies being on blood thinners. She reports that she has had hip hemiarthroplasty on her left hip on January. Her records from that hospitalization reviewed. She reports that after the fall, her helped her to get up and put her to bed. As the morning goes on, she stated the pain was getting worse on her left hip and she was not able to get out of bed therefore finally called ambulance. no other symptoms CBC/BMP: 02/22/17 0830 02/22/17 0830 Significant Findings Laboratory Tests Test 02/21/17 14:00 02/22/17 08:30 Red Blood Count 3.52 MIL/MM3 (4.00-5.30) 3.63 MIL/MM3 (4.00-5.30) Hemoglobin 11.4 GM/DL (11.6-15.3) Hematocrit 34.0 % (35.0-46.0) Neutrophils (%) (Auto) 85.3 % (16.0-70.0) Lymphocytes # (Auto) 0.9 TH/MM3 (1.0-4.8) Imaging Last Impressions Chest X-Ray 02/21/17 0457 Signed Impressions: Service Date/Time: Tuesday, February 21, 2017 04:47 - CONCLUSION: Mild patchy atelectasis versus consolidation left lung base. Espinoza Chavez MD Hip X-Ray 02/19/17 0000 Signed Impressions: Service Date/Time: February 10:12 - CONCLUSION: 1. Status post left hip arthroplasty in anatomic alignment without significant bony fracture. Leonel Dominguez MD Hip and Pelvis X-Ray 02/18/17 0000 Signed Impressions: Service Date/Time: Saturday, February 18, 2017 12:12 - CONCLUSION: Dislocated left hip prosthesis. Bonifacio Hinojosa MD PE at Discharge GENERAL: This is a well-nourished, well-developed patient, in no apparent distress. CARDIOVASCULAR: Normal rate and regular rhythm without murmurs, gallops, or rubs. RESPIRATORY: Good respiratory efforts. Diminished breath sounds on the left base. Some discomfort with deep breathing. Rest of the lung lacey clear to auscultation. GASTROINTESTINAL: Abdomen soft, non-tender, non-distended. Normal active bowel sounds MUSCULOSKELETAL: Extremities without cyanosis, or edema. NEURO: Alert & Oriented x4 to person, place, time, situation. Moves all ext x4 PSYCH: Appropriate mood and affect. Pt update on day of discharge Patient reports she is feeling okay. Still having urinary retention requiring straight catheter. I discussed with urology Dr. Nino. Okay to discharge patient with a Aguilera. She will follow-up outpatient in 2 weeks for repeat voiding trial. Discussed discharge planning at length with the patient and at bedside. All questions answered. Hospital Course 61-year-old female admitted after sustaining a mechanical fall and dislocation of right hip prosthesis. Attempt at reducing dislocation in the emergency room were unsuccessful. The patient was admitted and followed by orthopedic surgery. She underwent close reduction of left hip dislocation under anesthesia. The patient has known COPD and later developed worsening cough which was found to have evidence of early pneumonia and was started on antibiotics. She improved from that standpoint. The patient also had issues with urinary retention. She was followed by urology. Straight catheter multiple times. She was still unable to void spontaneously. Discussed with urology. The patient is discharge home with a Aguilera catheter and will follow- up outpatient in 2 weeks for repeat voiding trial. Pt Condition on Discharge: Good Discharge Disposition: Disch w/ Home Health Serv Discharge Time: > 30 minutes Discharge Instructions Follow up Referrals: Appointment for Follow Up @ [facility] Appointment for Follow Up @ [facility] - [facility]eks [facility] with Leonard Nichole MD Urology - 2 Weeks with [facility],Lucho Alamo MD Call for appointment New Medications: Levofloxacin (Levofloxacin) 750 Mg Tablet 750 MG PO DAILY for Infection, #5 TAB 0 Refills Tamsulosin (Flomax) 0.4 Mg Cap 0.4 MG PO DAILY, #30 CAP [Ipratropium [place]jo] () 0.5 MG/2.5 ML NEBU 0.5 MG NEB Q2HR NEB PRN for wheezing, #1 BOX Continued Medications: Albuterol 18 GM Inh (Ventolin Hfa 18 GM Inh) 90 Mcg/Act Aer 2 PUFF INH Q4-6H PRN for SHORTNESS OF BREATH, #1 INHALER [address] (Aspirin Adult Low Strength) 81 Mg Tabdr 81 MG PO DAILY for Blood Clot Prevention, TAB Budesonide-Formoterol Inh (Symbicort Inh) 160-4.5 Mcg/Act Aero 1 PUFF INH Q12HR, #1 INHALER 0 Refills Hydrocodone/Acetaminophen (Hydrocodone-Acetamin 7.5-325) 7.5 Mg-325 Mg Tablet 1 TAB PO Q6HR PRN for Pain 5-10, #30 TAB (This prescription has been renewed) Ipratropium-Albuterol Neb (Duoneb) 0.5-2.5 Mg/3 Ml Neb 3 ML NEB Q2HR PRN for SHORTNESS OF BREATH, #1 BOX 0 Refills (This prescription has been renewed) Multiple Vitamins W/ Minerals (Thera M Plus) 1 Tab 1 TAB PO BID for Nutritional Supplement, #30 TAB Oxygen (O2) (Oxygen (O2)) Device LITER CEFERINO.CANULA CONTINUOUS for Prevent Hypoxemia, #2 Oxygen Concentrator Portable Gaseous 2 L/min via Nasal Canula Continuous For 99 months Polyethylene Glycol 3350 Powder (Miralax Powder) 17 Gm Powd 17 GM PO DAILY PRN for CONSTIPATION, #1 CAN 0 Refills Mix and dissolve one measuring capful (17 grams) in water or juice. Prednisone (Prednisone) 10 Mg Tab 10 MG PO DAILY, #30 TAB Zolpidem (Ambien) 5 Mg Tab 5 MG PO HS PRN for SLEEP, #30 TAB Tien Butler MD Feb 23, 2017 11:41
[2017-02-23 11:52] VITALS: BP 90/55; PULSE 104; RESP 20; TEMP 98.4; O2SAT 94
[2017-02-23] MEDS: LEVOFLOXACIN 750 MG PREMIX INJ 150 ML IV SCH (12:16)
[2017-02-23] MEDS ORDERED: HYDR-3580 PO (15:08)
[2017-02-23] MEDS ORDERED: Ipratropium Bromide NEB (15:08)
[2017-02-23] MEDS ORDERED: IPRASOL NEB (15:08)
--- NOTE | 2017-02-23 16:09 | HHI.FF ---
Face to Face Verification Diagnosis: (1) Hip dislocation, left (2) Pulmonary emphysema (3) Urinary retention (4) Pneumonia Home Health Nursing Order: Medical education Aguilera catheter maintenance I have seen patient Toyin Nelson on 02/23/17. My clinical findings support the need for the requested home health care services because: Limited ability to care for self Need for psychosocial assistance I certify that my clinical findings support that this patient is homebound because: Need for psychosocial assistance Tien Butler MD Feb 23, 2017 16:09
[2017-02-23 16:28] VITALS: BP 91/55; PULSE 103; RESP 18; TEMP 98.4; O2SAT 98
[2017-02-24] MEDS ORDERED: HYDR-3516 PO (13:12)
== END 2017-02-23 17:33 | disposition home health service (06) | DRG 559 ==
LOC: NEPC 11:03 → NEDA 15:20 → N04A 17:32
PROVIDERS: ADMIT Family Medicine; ATTEND Family Medicine
PROC: 0SWBXJZ Revision of Synthetic Substitute in Left Hip Joint, External Approach (ICD-10-PCS; principal; 2017-02-19 10:02)
DX: T84.021A Dislocation of internal left hip prosthesis, initial encounter (principal); J18.9 Pneumonia, unspecified organism; Z99.81 Dependence on supplemental oxygen; J43.9 Emphysema, unspecified; R33.9 Retention of urine, unspecified; R00.0 Tachycardia, unspecified; T48.6X5A Adverse effect of antiasthmatics, initial encounter; G43.909 Migraine, unspecified, not intractable, without status migrainosus; F32.9 Major depressive disorder, single episode, unspecified; F17.200 Nicotine dependence, unspecified, uncomplicated; W01.190A Fall on same level from slipping, tripping and stumbling with subsequent striking against furniture, initial encounter; Y79.2 Prosthetic and other implants, materials and accessory orthopedic devices associated with adverse incidents; Y92.009 Unspecified place in unspecified non-institutional (private) residence as the place of occurrence of the external cause; Z23 Encounter for immunization
CPT/HCPCS: 27265; 51702; 71010; 73502; 76000; 80048; 83735; 85025; 85027; 85610; 85730; 86850; 86900; 86901; 90732; 93005; 94150; 94640; 94664; 96374; 96375; 99152; 99153; J1650; J1956; J2270; J2405; J7512; J7644; L1830

== ENCOUNTER 2017-04-01 17:19 | Inpatient (IN) | payer MEDICAID ==
[2017-04-01] VITALS (7 sets, daily range): BP systolic 81–101; BP diastolic 50–60; PULSE 118–125; RESP 18–20; TEMP 98.1–98.7; O2SAT 91–99
[~2017-04-01] VITALS: Ht 162.6 cm; Wt 51.9 kg
[~2017-04-01 17:19] MED LIST changes: -ASPI-146 PO; +ASPI81TA16 PO; -Albuterol-Ipratropium Neb NEB; -Budeson-Formot 160-4.5 Mg Inh INH; -CIPR-9 PO; -COMMODE 3-IN-11 MIS; -GETGO ROLLING W1 MI1; +HYDR-3516 PO; -HYDR-3580 PO; +IPRASOL NEB; +Ipratropium Bromide NEB; +LEVO750T3 PO; +MIRA3350 PO; -NEBULIZER1 MI1; -PERI PO; +SYMB160A INH; +TAMS5CAP PO; -WALKER WHEELS/F1 MIS; -Z.0.OXYGENDME FM
[2017-04-01] MEDS ORDERED: PIPERACIL-TAZO 4.5 GM PREMIX 100 ML IV STA (17:57)
--- NOTE | 2017-04-01 17:59 | PD ---
HPI Chief Complaint: Complaint Time Seen by Provider: 17:38 Travel History International Travel<30 days: No Contact w/Intl Traveler<30days: No Traveled to known affect area: No History of Present Illness HPI Patient comes emergency Department complaining of suprapubic abdominal pain that began around 3:00 in the morning. Patient states yesterday around 11 AM her Aguilera catheter came out. Patient reports it was in for approximately a month after having hip surgery and having issues with urinary retention. Patient reports abdomen patient is a burning pressure-like sensation. Patient reports she has been having some overflow urinary incontinence. Patient denies anything making symptoms better. Pain is worse to palpation. Denies any radiation of the pain. Denies any fevers, chest pain, shortness of breath, nausea, or vomiting. PFSH Past Medical History Arthritis: Yes (RIGHT KNEE) Asthma: No Autoimmune Disease: No Blood Disorders: No Anxiety: No Depression: No Heart Rhythm Problems: No Cancer: No Cardiovascular Problems: Yes (HYPOTENSION) High Cholesterol: No Chemotherapy: No Chest Pain: No Congestive Heart Failure: No COPD: Yes Cerebrovascular Accident: No Coronary Artery Disease: No Diabetes: No Diminished Hearing: No Endocrine: No Gastrointestinal Disorders: Yes GERD: No Glaucoma: No Headaches: No Hepatitis: No Hiatal Hernia: No Hypertension: No Immune Disorder: No Kidney Stones: No Musculoskeletal: Yes (lt hip orif) Neurologic: Yes Psychiatric: No Reproductive: No Respiratory: Yes Migraines: Yes Myocardial Infarction: No Pneumonia: Yes Radiation Therapy: No Renal Failure: No Seizures: No Sickle Cell Disease: No Sleep Apnea: No Thyroid Disease: No Ulcer: No Menopausal: Yes : 1 Para: 1 Tubal Ligation: Yes Past Surgical History Abdominal Surgery: Yes (LAPOROSCOPY) AICD: No Arteriovenous Shunt: No Cardiac Surgery: No Ear Surgery: No Endocrine Surgery: No Eye Surgery: No Genitourinary Surgery: Yes (BLADDER STRETCHED X2) Insulin Pump: No Joint Replacement: Yes (LEFT HIP SURGERY) Oral Surgery: No Pacemaker: No Thoracic Surgery: No Other Surgery: Yes Social History Alcohol Use: No Tobacco Use: Yes Substance Use: No Allergies-Medications (Allergen,Severity, Reaction): Coded Allergies: No Known Allergies (Verified Allergy, Unknown, 02/18/17) Reported Meds & Prescriptions Reported Meds & Active Scripts Active Hydrocodone-Acetaminophen 5-325 mg Tab 1-2 Tab PO Q4H PRN [Ipratropium [place]] 0.5 MG/2.5 ML Nebu 0.5 Mg NEB Q2HR NEB PRN Duoneb (Ipratropium-Albuterol Neb) 0.5-2.5 Mg/3 Ml Neb 3 Ml NEB Q2HR PRN Flomax (Tamsulosin HCl) 0.4 Mg Cap 0.4 Mg PO DAILY Ventolin Hfa 18 GM Inh (Albuterol Sulfate) 90 Mcg/Act Aer 2 Puff INH Q4-6H PRN Thera M Plus (Multivitamins/Minerals Therapeutic) 1 Tab 1 Tab PO BID Ambien (Zolpidem Tartrate) 5 Mg Tab 5 Mg PO HS PRN Oxygen (O2) Device Liter CEFERINO.CANULA CONTINUOUS Oxygen Concentrator Portable Gaseous 2 L/min via Nasal Canula Continuous For 99 months Reported Miralax Powder (Polyethylene Glycol 3350 Powder) 17 Gm Powd 17 Gm PO DAILY PRN Mix and dissolve one measuring capful (17 grams) in water or juice. Symbicort Inh (Budesonide/Formoterol Fumarate) 160-4.5 Mcg/Act Aero 1 Puff INH Q12HR Aspirin Adult Low Strength (Aspirin) 81 Mg Tabdr 81 Mg PO DAILY Review of Systems Except as stated in HPI: all other systems reviewed are Neg Physical Exam Narrative GENERAL: Well-developed, well nourished, in no acute distress, and non-ill appearing. SKIN: Focused skin assessment warm and dry. HEAD: Atraumatic. Normocephalic. EYES: Pupils equal and round. EOMI. No scleral icterus. No injection or drainage. ENT: No nasal bleeding or discharge. Mucous membranes pink and moist. NECK: Trachea midline. Supple. No nuclear rigidity. CARDIOVASCULAR: Tachycardia rate and rhythm. No murmur appreciated. RESPIRATORY: No accessory muscle use. No respiratory distress. Clear to auscultation. Breath sounds equal bilaterally. GASTROINTESTINAL: Abdomen soft and no guarding. Hepatic and splenic margins not palpable. Normal bowel sounds 4. No pulsatile mass. Tenderness and distention noted over the bladder. MUSCULOSKELETAL: No obvious deformities. No clubbing. No cyanosis. No edema. Full range of motion. NEUROLOGICAL: Awake and alert. No obvious cranial nerve deficits. Motor grossly within normal limits. Normal speech. PSYCHIATRIC: Appropriate mood and affect; insight and judgment normal. Data Data Last Documented VS Vital Signs Date Time Temp Pulse Resp B/P (MAP) Pulse Ox O2 Delivery O2 Flow Rate FiO2 04/01/17 19:30 118 20 98/60 (73) 95 Nasal Cannula 2.00 04/01/17 17:31 98.1 Orders Orders Urinalysis - C+S If Indicated (04/01/17 17:41) Continue Aguilera/Suprapubic Cath (04/01/17 17:41) Complete Blood Count With Diff (04/01/17 17:53) Comprehensive Metabolic Panel (04/01/17 17:53) Lipase (04/01/17 17:53) Lactic Acid (04/01/17 17:53) Prothrombin Time / Inr (Pt) (04/01/17 17:53) Act Partial Throm Time (Ptt) (04/01/17 17:53) Iv Access Insert/Monitor (04/01/17 17:53) Ecg Monitoring (04/01/17 17:53) Oximetry (04/01/17 17:53) Sodium Chloride 0.9% Flush (Ns Flush) (04/01/17 18:00) Sodium Chlor 0.9% 1000 Ml Inj (Ns 1000 M (04/01/17 18:00) Piperacil-Tazo 4.5 Gm Premix (Zosyn 4.5 (04/01/17 17:57) Urine Culture (04/01/17 17:50) Sodium Chlor 0.9% 1000 Ml Inj (Ns 1000 M (04/01/17 19:15) Ondansetron Inj (Zofran Inj) (04/01/17 19:30) Morphine Inj (Morphine Inj) (04/01/17 19:30) Sepsis Workup Initiated (04/01/17 ) Blood Culture (04/01/17 19:27) Admit Order (Ed Use Only) (04/01/17 ) Vital Signs (Adult) Q4H (04/01/17 19:44) Activity Bed Rest (04/01/17 19:44) Notify Dr: Other (04/01/17 19:44) Labs Laboratory Tests Test 04/01/17 17:50 04/01/17 18:30 04/01/17 18:40 Urine Color DARK-BROWN Urine Turbidity CLOUDY Urine pH 7.5 Urine Specific [place] 1.020 Urine Protein 300 mg/dL Urine Glucose (UA) NEG mg/dL Urine Ketones NEG mg/dL Urine Occult Blood MOD Urine Nitrite POS Urine Bilirubin SMALL Urine Urobilinogen 2.0 MG/DL Urine Leukocyte Esterase LARGE Urine RBC /hpf Urine WBC /hpf Urine WBC Clumps MANY Urine Transitional Epithelial Cells 1 /hpf Urine Bacteria MANY /hpf Urine Mucus FEW /lpf Microscopic Urinalysis Comment CULTURE INDICATED Lactic Acid Level 2.2 mmol/L White Blood Count 29.6 TH/MM3 Red Blood Count 3.93 MIL/MM3 Hemoglobin 12.1 GM/DL Hematocrit 37.5 % Mean Corpuscular Volume 95.3 FL Mean Corpuscular Hemoglobin 30.8 PG Mean Corpuscular Hemoglobin Concent 32.3 % Red Cell Distribution Width 14.5 % Platelet Count 346 TH/MM3 Mean Platelet Volume 8.4 FL Neutrophils (%) (Auto) 90.7 % Lymphocytes (%) (Auto) 3.1 % Monocytes (%) (Auto) 6.1 % Eosinophils (%) (Auto) 0.0 % Basophils (%) (Auto) 0.1 % Neutrophils # (Auto) 26.9 TH/MM3 Lymphocytes # (Auto) 0.9 TH/MM3 Monocytes # (Auto) 1.8 TH/MM3 Eosinophils # (Auto) 0.0 TH/MM3 Basophils # (Auto) 0.0 TH/MM3 CBC Comment DIFF FINAL Differential Comment Prothrombin Time 11.6 SEC Prothromb Time International Ratio 1.1 RATIO Activated Partial Thromboplast Time 29.8 SEC Blood Urea Nitrogen 61 MG/DL Creatinine 3.78 MG/DL Random Glucose 59 MG/DL Total Protein 6.8 GM/DL Albumin 2.8 GM/DL Calcium Level 9.2 MG/DL Alkaline Phosphatase 92 U/L Aspartate Amino Transf (AST/SGOT) 19 U/L Alanine Aminotransferase (ALT/SGPT) LESS THAN 6 U/L Total Bilirubin 0.9 MG/DL Sodium Level 133 MEQ/L Potassium Level 3.9 MEQ/L Chloride Level 97 MEQ/L Carbon Dioxide Level 26.7 MEQ/L Anion Gap 9 MEQ/L Estimat Glomerular Filtration Rate 12 ML/MIN Lipase 37 U/L [facility] Medical Decision Making Medical Screen Exam Complete: Yes Emergency Medical Condition: Yes Differential Diagnosis Urinary retention, UTI, sepsis, dehydration, renal insufficiency, metabolic disturbance Narrative Course Patient was seen and examined. Initial laboratory studies were ordered. Aguilera was replaced. Patient reports improvement of symptoms with bladder being drained. Patient started on IV fluids and IV antibiotics for sepsis. Discussed all findings and plan care of patient, who was agreeable for admission. All questions were answered. Discussed patient with Dr. Gonzalez, who is in agreement with and disposition. Discussed patient with hospitalist, who is agreeable to admit the patient. Patient remained stable throughout ED course. Sepsis Criteria SIRS Criteria (2 or more): Heart rate over 90, WBC > 89064, < 4000 or > 10% bands Sepsis Criteria (SIRS+source): Infect source susp/known Severe Sepsis (+one): Lactate >2 Physician Communication Physician Communication [address] Martinez, who is agreeable to admit the patient. Diagnosis Primary Impression: Sepsis Qualified Codes: A41.9 - Sepsis, unspecified organism Additional Impressions: UTI (urinary tract infection) Qualified Codes: T83.511A - Infection and inflammatory reaction due to indwelling urethral catheter, initial encounter; N39.0 - Urinary tract infection , site not specified Renal insufficiency Urinary retention Admitting Information Admitting Physician Requests: Admit Condition: Stable Lux Fagan Apr 01, 2017 17:59
[2017-04-01] MEDS ORDERED: SODIUM CHLORIDE 0.9% FLUSH 10 ML FLUSH IV FLUSH PRN ×2 (18:00→20:15)
[2017-04-01] MEDS ORDERED: SODIUM CHLOR 0.9% 1000 ML INJ 1,000 ML IV ONE ×2 (18:00→19:15)
[2017-04-01 18:07] LABS: BACTERIA, URINE MANY /hpf; BILIRUBIN, URINE SMALL (NEG); BLOOD, URINE MOD (NEG); GLUCOSE,URINE NEG (NEG); KETONE, URINE NEG (NEG); MUCUS URINE FEW /lpf (OCC); NITRITE,URINE POS (NEG); PH, URINE 7.5 (5.0-8.5); TRANSITIONAL EPI CELLS, URINE 1 /hpf; URINE LEUKOCYTE ESTERASE LARGE (NEG); WHITE BLOOD CELL CLUMPS MANY
[2017-04-01 18:08] LABS: URINE COLOR DARK-BROWN (YELLW/STRAW)
[2017-04-01 19:08] LABS: AUTOMATED NEUTROPHIL # 26.9 TH/MM3 (1.8-7.7); BASOPHIL % 0.1 % (0.0-2.0); HEMATOCRIT 37.5 % (35.0-46.0); HEMOGLOBIN 12.1 GM/DL (11.6-15.3); LYMPH % 3.1 % (9.0-44.0); LYMPHOCYTE # 0.9 TH/MM3 (1.0-4.8); MEAN CELL VOLUME 95.3 FL (80.0-100.0); MEAN CORPUSCULAR HEMOGLOBIN 30.8 PG (27.0-34.0); MEAN CORPUSCULAR HGB CONC 32.3 % (32.0-36.0); MEAN PLATELET VOLUME 8.4 FL (7.0-11.0); MONO % 6.1 % (0.0-8.0); MONOCYTE # 1.8 TH/MM3 (0-0.9); NEUT % 90.7 % (16.0-70.0); PLATELET COUNT 346 TH/MM3 (150-450); RED BLOOD COUNT 3.93 MIL/MM3 (4.00-5.30); RED CELL DISTRIBUTION WIDTH 14.5 % (11.6-17.2); WHITE BLOOD COUNT 29.6 TH/MM3 (4.0-11.0)
[2017-04-01 19:22] LABS: ALT (GPT) LESS THAN 6 U/L (10-53)
[2017-04-01 19:23] LABS: INTERNATIONAL NORMALIZED RATIO 1.1 RATIO; PROTHROMBIN TIME - PATIENT 11.6 SEC (9.8-11.6)
[2017-04-01 19:24] LABS: ALKALINE PHOSPHATASE 92 U/L (45-117); TOTAL BILIRUBIN ADULT 0.9 MG/DL (0.2-1.0); TOTAL PROTEIN 6.8 GM/DL (6.4-8.2)
[2017-04-01] MEDS ORDERED: MORPHINE SULFATE 2 MG/ML INJ IV PUSH ONE (19:30)
[2017-04-01] MEDS ORDERED: ONDANSETRON HCL 4 MG/2 ML VIAL IV PUSH ONE (19:30)
[2017-04-01 19:35] LABS: ALBUMIN 2.8 GM/DL (3.4-5.0); AST (GOT) 19 U/L (15-37); BICARBONATE 26.7 MEQ/L (21.0-32.0); BLOOD UREA NITROGEN 61 MG/DL (7-18); CALCIUM 9.2 MG/DL (8.5-10.1); CHLORIDE 97 MEQ/L (98-107); CREATININE 3.78 MG/DL (0.50-1.00); GLOMERULAR FILTRATION RATE 12 ML/MIN (>89); GLUCOSE,RANDOM 59 MG/DL (74-106); LIPASE 37 U/L (73-393); SODIUM (NA) 133 MEQ/L (136-145)
[2017-04-01] MEDS ORDERED: ACETAMINOPHEN 325 MG TAB PO PRN (20:15)
[2017-04-01] MEDS ORDERED: ONDANSETRON HCL 4 MG/2 ML VIAL IVP PRN (20:15)
[2017-04-01] MEDS ORDERED: NALOXONE HCL 0.4 MG/ML AMP IV PUSH PRN (20:15)
[2017-04-01] MEDS: RESP: ALBUTEROL 2.5 MG/IPRATROPIUM 0.5 MG NEB (PRN) NEB (21:40)
--- NOTE | 2017-04-01 22:07 | HHI.HP ---
[facility] Service [place] [facility] Primary Care Physician Unknown Admission Diagnosis sepsis, UTI, renal insufficiency Diagnoses: Travel History International Travel<30 Days: No Contact w/Intl Traveler <30 Da: No Traveled to Known Affected Are: No History of Present Illness 61-year-old female with a past medical history significant for COPD on 2 L nasal cannula at home presents to the emergency department complaining of severe abdominal pain and urinary retention. The patient was discharged from the hospital on 02/18/17 after closed reduction of left hip dislocation under anesthesia. Her hospital course was complicated by urinary retention and she was discharged to home with a Aguilera catheter with instructions to follow-up as an outpatient with urology in 2 weeks for repeat voiding trial. The patient has been unable to be seen by urology but does have an appointment in the future. She reports she has had the same catheter in since discharge from the hospital. Yesterday, her catheter fell out. She has been having some overflow urinary incontinence but inability to void. She reports the abdominal pain woke her at 3:00 this morning and she came to the emergency department for further evaluation. She denies any fever/chills. No shortness of breath or chest pain. Review of Systems Denies fever or chills Denies blurry vision, otorrhea, rhinorrhea Denies sore throat and cough No chest pain, palpitations No shortness of breath or wheezing Positive abdominal pain Denies constipation/diarrhea/nausea/vomiting Denies muscle pain Denies focal weakness No rashes Past Family Social History Past Medical History COPD on 2 L nasal cannula continuously at home Past Surgical History Left hip reduction under anesthesia Left hip replacement Laparoscopy/BTL Reported Medications Reported Meds & Active Scripts Active Hydrocodone-Acetaminophen 5-325 mg Tab 1-2 Tab PO Q4H PRN [Ipratropium [place]] 0.5 MG/2.5 ML Nebu 0.5 Mg NEB Q2HR NEB PRN Duoneb (Ipratropium-Albuterol Neb) 0.5-2.5 Mg/3 Ml Neb 3 Ml NEB Q2HR PRN Flomax (Tamsulosin HCl) 0.4 Mg Cap 0.4 Mg PO DAILY Ventolin Hfa 18 GM Inh (Albuterol Sulfate) 90 Mcg/Act Aer 2 Puff INH Q4-6H PRN Thera M Plus (Multivitamins/Minerals Therapeutic) 1 Tab 1 Tab PO BID Ambien (Zolpidem Tartrate) 5 Mg Tab 5 Mg PO HS PRN Oxygen (O2) Device Liter CEFERINO.CANULA CONTINUOUS Oxygen Concentrator Portable Gaseous 2 L/min via Nasal Canula Continuous For 99 months Reported Miralax Powder (Polyethylene Glycol 3350 Powder) 17 Gm Powd 17 Gm PO DAILY PRN Mix and dissolve one measuring capful (17 grams) in water or juice. Symbicort Inh (Budesonide/Formoterol Fumarate) 160-4.5 Mcg/Act Aero 1 Puff INH Q12HR Aspirin Adult Low Strength (Aspirin) 81 Mg Tabdr 81 Mg PO DAILY Allergies: Coded Allergies: No Known Allergies (Verified Allergy, Unknown, 02/18/17) Family History Negative for CAD/DM Social History 40 pack year history of smoking, currently smokes 1 cigarette per day. Denies alcohol and illicit drugs. Physical Exam Vital Signs Vital Signs Date Time Temp Pulse Resp B/P (MAP) Pulse Ox O2 Delivery O2 Flow Rate FiO2 04/01/17 21:44 96 Nasal Cannula 2.00 04/01/17 20:36 115 16 100/58 (72) 95 Nasal Cannula 2.00 04/01/17 19:30 118 20 98/60 (73) 95 Nasal Cannula 2.00 04/01/17 18:47 99 Nasal Cannula 2.00 04/01/17 17:31 98.1 125 20 101/56 (71) 99 Physical Exam GENERAL: Thin, female lying in bed SKIN: No rashes, ecchymoses or lesions. Cool and dry. HEAD: Atraumatic. Normocephalic. No temporal or scalp tenderness. EYES: Pupils equal round and reactive. Extraocular motions intact. No scleral icterus. No injection or drainage. ENT: Nose without bleeding, purulent drainage or septal hematoma. Throat without erythema, tonsillar hypertrophy or exudate. Uvula midline. Airway patent. NECK: Trachea midline. No JVD or lymphadenopathy. Supple, nontender, no meningeal signs. CARDIOVASCULAR: Regular rate and rhythm without murmurs, gallops, or rubs. RESPIRATORY: Clear to auscultation. Breath sounds equal bilaterally. No wheezes , rales, or rhonchi. GASTROINTESTINAL: Abdomen soft, tender to palpation worse in the pelvic region, nondistended. No hepato-splenomegaly, or palpable masses. No guarding. MUSCULOSKELETAL: Extremities without clubbing, cyanosis, or edema. No joint tenderness, effusion, or edema noted. No calf tenderness. NEUROLOGICAL: Awake and alert. Cranial nerves II through XII intact. Motor and sensory grossly within normal limits. Normal speech. Laboratory Laboratory Tests Test 04/01/17 17:50 04/01/17 18:30 04/01/17 18:40 Urine Color DARK-BROWN Urine Turbidity CLOUDY Urine pH 7.5 Urine Specific Purcell 1.020 Urine Protein 300 Urine Glucose (UA) NEG Urine Ketones NEG Urine Occult Blood MOD Urine Nitrite POS Urine Bilirubin SMALL Urine Urobilinogen 2.0 Urine Leukocyte Esterase LARGE Urine RBC Urine WBC Urine WBC Clumps MANY Urine Transitional Epithelial Cells 1 Urine Bacteria MANY Urine Mucus FEW Microscopic Urinalysis Comment CULTURE INDICATED Lactic Acid Level 2.2 White Blood Count 29.6 Red Blood Count 3.93 Hemoglobin 12.1 Hematocrit 37.5 Mean Corpuscular Volume 95.3 Mean Corpuscular Hemoglobin 30.8 Mean Corpuscular Hemoglobin Concent 32.3 Red Cell Distribution Width 14.5 Platelet Count 346 Mean Platelet Volume 8.4 Neutrophils (%) (Auto) 90.7 Lymphocytes (%) (Auto) 3.1 Monocytes (%) (Auto) 6.1 Eosinophils (%) (Auto) 0.0 Basophils (%) (Auto) 0.1 Neutrophils # (Auto) 26.9 Lymphocytes # (Auto) 0.9 Monocytes # (Auto) 1.8 Eosinophils # (Auto) 0.0 Basophils # (Auto) 0.0 CBC Comment DIFF FINAL Differential Comment Prothrombin Time 11.6 Prothromb Time International Ratio 1.1 Activated Partial Thromboplast Time 29.8 Blood Urea Nitrogen 61 Creatinine 3.78 Random Glucose 59 Total Protein 6.8 Albumin 2.8 Calcium Level 9.2 Alkaline Phosphatase 92 Aspartate Amino Transf (AST/SGOT) 19 Alanine Aminotransferase (ALT/SGPT) LESS THAN 6 Total Bilirubin 0.9 Sodium Level 133 Potassium Level 3.9 Chloride Level 97 Carbon Dioxide Level 26.7 Anion Gap 9 Estimat Glomerular Filtration Rate 12 Lipase 37 Date/Time Source Procedure Growth Status 04/01/17 18:45 Blood Peripheral Aerobic Blood Culture Pending Received 04/01/17 18:45 Blood Peripheral Anaerobic Blood Culture Pending Received 04/01/17 17:50 Urine Random Urine Urine Culture Pending Received Result Diagram: 04/01/17183904/01/171839 Caprini VTE Risk Assessment Shruthi VTE Risk Assessment: Mod/High Risk (score >= 2) Caprini Risk Assessment Model Point Value = 1 Point Value = 2 Point Value = 3 Point Value = 5 Age 41-60 Minor surgery BMI > 25 kg/m2 Swollen legs Varicose veins or History of unexplained or recurrent spontaneous Oral contraceptives or hormone replacement Sepsis (< 1 month) Serious lung disease, including pneumonia (< 1 month) Abnormal pulmonary function Acute myocardial infarction Congestive heart failure (< 1 month) History of inflammatory bowel disease Medical patient at bed rest Age 61-74 Arthroscopic surgery Major open surgery (> 45 min) Laparoscopic surgery (> 45 min) Malignancy Confined to bed (> 72 hours) Immobilizing plaster cast Central venous access Age >= 75 History of VTE Family history of VTE Factor V Leiden Prothrombin 29131V Lupus anticoagulant Anticardiolipin antibodies Elevated serum homocysteine Heparin-induced thrombocytopenia Other congenital or acquired thrombophilia Stroke (< 1 month) Elective arthroplasty Hip, pelvis, or leg fracture Acute spinal cord injury (< 1 month) Prophylaxis Regimen Total Risk Factor Score Risk Level Prophylaxis Regimen 0-1 Low Early ambulation 2 Moderate Order ONE of the following: *Sequential Compression Device (SCD) *Heparin 5000 units SQ BID 3-4 Higher Order ONE of the following medications: *Heparin 5000 units SQ TID *Enoxaparin/Lovenox 40 mg SQ daily (WT < 150 kg, CrCl > 30 mL/min) *Enoxaparin/Lovenox 30 mg SQ daily (WT < 150 kg, CrCl > 10-29 mL/min) *Enoxaparin/Lovenox 30 mg SQ BID (WT < 150 kg, CrCl > 30 mL/min) AND/OR *Sequential Compression Device (SCD) 5 or more Highest Order ONE of the following medications: *Heparin 5000 units SQ TID (Preferred with Epidurals) *Enoxaparin/Lovenox 40 mg SQ daily (WT < 150 kg, CrCl > 30 mL/min) *Enoxaparin/Lovenox 30 mg SQ daily (WT < 150 kg, CrCl > 10-29 mL/min) *Enoxaparin/Lovenox 30 mg SQ BID (WT < 150 kg, CrCl > 30 mL/min) AND *Sequential Compression Device (SCD) Assessment and Plan Assessment and Plan Assessment/plan: 1. Urosepsis WBC 29.6, tachycardic, lactic acid 2.2 UA significant for many bacteria, many WBC clumps, large leukocyte esterase, positive nitrites Urine culture pending Blood culture pending Monitor for signs of shock Rocephin IV fluids 2. Acute kidney injury BUN/creatinine 61/3.78, baseline 0.5 Renal ultrasound pending Nephrology consulted, appreciate recommendations IV fluid hydration 3. Urinary retention Patient with continued urinary retention status post operative intervention Aguilera replaced Follow-up with urology as outpatient Continue Flomax 4. COPD DuoNeb's Continue home oxygen Continue home Symbicort FEN Heart healthy diet Electrolytes: monitor and replete prn NS at 100 cc/hr Heparin Physician Certification 2 Midnight Certification Type: Admission for Inpatient Services Order for Inpatient Services The services are ordered in accordance with Medicare regulations or non- Medicare payer requirements, as applicable. In the case of services not specified as inpatient-only, they are appropriately provided as inpatient services in accordance with the 2-midnight benchmark. Estimated LOS (days): 2 2 days is the estimated time the patient will need to remain in the hospital, assuming treatment plan goals are met and no additional complications. Post-Hospital Plan: Not yet determined Mirta Martinez MD Apr 01, 2017 22:07
[2017-04-01] MEDS: SODIUM CHLOR 0.9% 1000 ML INJ 1,000 ML IV SCH (23:29)
[2017-04-01] MEDS: cefTRIAXone INJ 2,000 MG in SODIUM CHLORIDE 0.9% INJ 100 ML IV SCH (23:30)
[2017-04-01] MEDS: MORPHINE SULFATE 2 MG/ML INJ IV PUSH PRN (23:32)
[2017-04-01] MEDS: BUDESONIDE-FORMOTEROL 160/4.5 MCG INHALER INH SCH (23:35)
[2017-04-01] MEDS: SODIUM CHLORIDE 0.9% FLUSH 10 ML FLUSH IV FLUSH SCH (23:37)
[2017-04-01] MEDS: HEPARIN SODIUM - SQ 10,000 UNITS/ML VIAL SQ SCH (23:47)
[2017-04-01] MEDS: ZOLPIDEM TARTRATE 5 MG TAB PO PRN (23:56)
[2017-04-02] VITALS (7 sets, daily range): BP systolic 78–138; BP diastolic 48–60; PULSE 73–125; RESP 16–18; TEMP 96.7–98.8; O2SAT 91–99
--- NOTE | 2017-04-02 00:36 | RADRPT ---
EXAM DATE/TIME: 04/01/2017 23:30 [place] COMPARISON: No previous studies available for comparison. INDICATIONS : Increased BUN/Creatinine. MEDICAL HISTORY : Migraines. Hypotension. COPD. Emphysema. COPD. Dyspnea. GERD. Depression. Bladder retention. UTI. Art hritis. SURGICAL HISTORY : Tubal ligation. Hysterectomy. Laporoscopy. Right knee surgery. Left hemiarthroplasty. Left hip repl acment. ENCOUNTER: Initial ACUITY: 1 day PAIN SCORE: 0/10 LOCATION: Bilateral flank MEASUREMENTS: RIGHT KIDNEY: 10.2 x 3.9 x 4.3 cm LEFT KIDNEY: 10.1 x 4.7 x 4.4 cm FINDINGS: RIGHT KIDNEY: Renal cortex is normal thickness. There is dilation of the renal pelvis with some preservation of re nal sinus fat. LEFT KIDNEY: Renal cortex is normal in thickness and echotexture. No hydronephrosis, stone, or mass. Minimal pro minence of the extrarenal pelvis. BLADDER: Nondistended. Aguilera catheter. OTHER: Marked distention of the gallbladder measuring in excess of 14 cm in length; no shadowing stones. CONCLUSION: 1. Mild dilation of the renal sinus on the right side suggesting mild hydronephrosis. 2. No evidence of hydronephrosis on the left with normal prominence of the extrarenal pelvis. 3. Prominent distention of the gallbladder. Henry Quinteros MD on April 02, 2017 at 0:28 Board Certified Radiologist. This report was verified electronically.
[2017-04-02] MEDS: MORPHINE SULFATE 2 MG/ML INJ IV PUSH PRN ×3 (02:55→09:41)
[2017-04-02 05:21] LABS: AUTOMATED NEUTROPHIL # 19.1 TH/MM3 (1.8-7.7); BASOPHIL % 0.2 % (0.0-2.0); EOSINOPHIL % 0.1 % (0.0-4.0); HEMATOCRIT 31.2 % (35.0-46.0); HEMOGLOBIN 10.1 GM/DL (11.6-15.3); LYMPH % 4.6 % (9.0-44.0); MEAN CELL VOLUME 95.2 FL (80.0-100.0); MEAN CORPUSCULAR HEMOGLOBIN 30.7 PG (27.0-34.0); MEAN CORPUSCULAR HGB CONC 32.2 % (32.0-36.0); MEAN PLATELET VOLUME 8.7 FL (7.0-11.0); MONO % 5.4 % (0.0-8.0); MONOCYTE # 1.2 TH/MM3 (0-0.9); NEUT % 89.7 % (16.0-70.0); PLATELET COUNT 281 TH/MM3 (150-450); RED BLOOD COUNT 3.28 MIL/MM3 (4.00-5.30); RED CELL DISTRIBUTION WIDTH 14.3 % (11.6-17.2); WHITE BLOOD COUNT 21.3 TH/MM3 (4.0-11.0)
[2017-04-02 05:48] LABS: BICARBONATE 25.7 MEQ/L (21.0-32.0); CALCIUM 8.1 MG/DL (8.5-10.1); CREATININE 2.1 MG/DL (0.50-1.00)
[2017-04-02] MEDS: HEPARIN SODIUM - SQ 10,000 UNITS/ML VIAL SQ SCH ×3 (06:23→22:19)
[2017-04-02] MEDS: SODIUM CHLOR 0.9% 1000 ML INJ 1,000 ML IV SCH ×2 (06:24→15:52)
[2017-04-02] MEDS: RESP: ALBUTEROL 2.5 MG/IPRATROPIUM 0.5 MG NEB (PRN) NEB ×3 (06:25→17:54)
[2017-04-02] MEDS: BUDESONIDE-FORMOTEROL 160/4.5 MCG INHALER INH SCH ×2 (08:48→22:19)
[2017-04-02] MEDS: TAMSULOSIN HCL 0.4 MG CAP PO SCH (08:49)
[2017-04-02] MEDS: ASPIRIN EC 81 MG TABEC PO SCH (08:49)
[2017-04-02] MEDS: guaiFENesin E.R. 600 MG TAB PO SCH ×2 (08:50→22:19)
[2017-04-02] MEDS: SODIUM CHLORIDE 0.9% FLUSH 10 ML FLUSH IV FLUSH SCH ×2 (08:51→21:00)
--- NOTE | 2017-04-02 14:30 | HHI.PR ---
Subjective Remarks sent home with a perez from last discharge complains of poor po appetite, nausea, had a good BM rthis am started having pain/bladder spasms and noted leaking around perez area for apst few days and came out no fever or chills Objective Vitals Vital Signs Date Time Temp Pulse Resp B/P (MAP) Pulse Ox O2 Delivery O2 Flow Rate FiO2 04/02/17 12:10 93 Nasal Cannula 3.00 04/02/17 12:00 98.8 114 18 78/48 (58) 95 04/02/17 08:00 121 04/02/17 08:00 98.6 125 18 85/52 (63) 99 04/02/17 03:50 97.0 113 18 87/52 (64) 91 04/01/17 23:00 98.7 118 20 81/50 (60) 91 04/01/17 21:44 96 Nasal Cannula 2.00 04/01/17 20:45 98.5 118 18 94/50 (65) 91 04/01/17 20:36 115 16 100/58 (72) 95 Nasal Cannula 2.00 04/01/17 19:30 118 20 98/60 (73) 95 Nasal Cannula 2.00 04/01/17 18:47 99 Nasal Cannula 2.00 04/01/17 17:31 98.1 125 20 101/56 (71) 99 I/O 04/01/17 04/01/17 04/01/17 04/02/17 04/02/17 04/02/17 07:00 15:00 23:00 07:00 15:00 23:00 Intake Total 1480 ml 851 ml 240 ml Output Total 250 ml 350 ml Balance 1230 ml 851 ml -110 ml Intake Oral 480 ml 240 ml IV Total 1000 ml 851 ml Output Urine Total 250 ml 350 ml # Bowel Movements 0 0 Result Diagram: 04/02/17 0355 04/02/17 0355 Imaging Last Impressions Renal Ultrasound 04/01/17 0000 Signed Impressions: Service Date/Time: Saturday, April 01, 2017 23:30 - CONCLUSION: 1. Mild dilation of the renal sinus on the right side suggesting mild hydronephrosis. 2. No evidence of hydronephrosis on the left with normal prominence of the extrarenal pelvis. 3. Prominent distention of the gallbladder. Henry Quinteros MD Objective Remarks anicteric sclerae no nuchal rigidity regular rhythm abdomen soft, nontender extremities no edema neuro exam non focal Urinary Catheter: Yes Assessment to: Continue Perez insert reason: Obstruction/Retention Date of Insertion: Apr 01, 2017 A/P Assessment and Plan 61 years old female with some extensive urologic issues Sepsis secondary to UTI- complicated- patient with chronic perez- complaining of leaking/spasms changed 04/01 day gf admission WBC 29.6, tachycardic, lactic acid 2.2. BP improved Urine culture pending. Blood culture pending Rocephin, ADd zosyn continue IV fluids Acute kidney injury due to obstructive uropathy- perez possibly not functioning as patient reported leakage- sounds like with Underlying neurogenic bladder Uremic - + dehydration- - uremic- was anorexic and complained of nausea should improve with new perez and hydration. IV fluid hydration ff BMP Urinary retention with spasms - ? Neurogenic bladder Patient with continued urinary retention status post operative intervention Perez changed 04/01 Urology consult-- per patient- set up to see one - needs urodynamic studies and for recommendations- states she called and can't get in Continue Flomax. Add ditropan 2.5 mg po bid - complains of spasms COPD 02 requiring - in remission DuoNeb's Continue home oxygen Continue home Symbicort regular diet Electrolytes: monitor and replete prn NS at 100 cc/hr Heparin SQ Elian Han MD Apr 02, 2017 14:30
[2017-04-02] MEDS ORDERED: MORPHINE SULFATE 2 MG/ML INJ IV PUSH PRN (14:45)
[2017-04-02] MEDS: oxyCODONE/ACETAMINOPHEN 5 MG/325 MG TAB PO PRN ×2 (15:32→23:32)
[2017-04-02] MEDS ORDERED: PILL SPLITTER OTHER PRN (15:45)
[2017-04-02] MEDS: PIPERACIL-TAZO 2.25 GM PREMIX 50 ML IV SCH (15:45)
--- NOTE | 2017-04-02 17:51 | PD.CONS ---
[facility] Service Nephrology Consult Requested By ROLO Peacock Reason for Consult ARF Primary Care Physician Unknown History of Present Illness The patient is a 61 yo [place] female who presented to the ED 04/01 with complaints of abdominal pain and urinary incontinence. Was recently admitted here in February for hip replacement and developed urinary retention post operatively. She subsequently had catheter placed and was advised to f/u with urology as an outpatient. She states she has been unable to f/u with Urology as "they couldn' t get me in for 6-8 weeks". Had indwelling Aguilera since her February discharge that she states spontaneously fell out on 03/31. Aguilera was reinserted in the ED on 04/01 and as per the patient she had significant urinary output (not documented). Of interest, states she has been out of her post-op medications ( Hydrocodone) and has been taking multiple OTC NSAIDs for pain relief for the past few weeks. Baseline SCr 0.5 Admitting SCr 3.78 eGFR 12 that improved to 2.10 eGFR 24 at consult. Renal US showed mild hydronephrosis on the right and prominent L renal pelvis without hydronephrosis. Urology has been consulted. Today, the patient is still having some lower abdominal pain, but overall is just complaining of generalized pain and requesting pain medications. ([place]andy Pond) Review of Systems Gastrointestinal: COMPLAINS OF: Abdominal pain Genitourinary: COMPLAINS OF: Urinary incontinence Musculoskeletal: COMPLAINS OF: Joint pain ([place]) Past Family Social History Allergies: Coded Allergies: No Known Allergies (Verified Allergy, Unknown, 02/18/17) Past Medical History COPD Urinary retention s/p recent hip surgery Hypotension Past Surgical History L hip BTL Reported Medications Hydrocodone-Acetaminophen 5-325 mg Tab 1-2 Tab PO Q4H PRN [Ipratropium [place]] 0.5 MG/2.5 ML Nebu 0.5 Mg NEB Q2HR NEB PRN Duoneb (Ipratropium-Albuterol Neb) 0.5-2.5 Mg/3 Ml Neb 3 Ml NEB Q2HR PRN Flomax (Tamsulosin HCl) 0.4 Mg Cap 0.4 Mg PO DAILY Ventolin Hfa 18 GM Inh (Albuterol Sulfate) 90 Mcg/Act Aer 2 Puff INH Q4-6H PRN Thera M Plus (Multivitamins/Minerals Therapeutic) 1 Tab 1 Tab PO BID Ambien (Zolpidem Tartrate) 5 Mg Tab 5 Mg PO HS PRN Oxygen (O2) Device Liter CEFERINO.CANULA CONTINUOUS Oxygen Concentrator Portable Gaseous 2 L/min via Nasal Canula Continuous For 99 months Miralax Powder (Polyethylene Glycol 3350 Powder) 17 Gm Powd 17 Gm PO DAILY PRN Mix and dissolve one measuring capful (17 grams) in water or juice. Symbicort Inh (Budesonide/Formoterol Fumarate) 160-4.5 Mcg/Act Aero 1 Puff INH Q12HR Aspirin Adult Low Strength (Aspirin) 81 Mg Tabdr 81 Mg PO DAILY Active Ordered Medications Current Medications Medications (Trade) Dose Ordered Sig/Stacie Route Start Time Stop Time Status Last Admin Sodium Chloride 1,000 ml @ 100 mls/hr Q10H IV 04/01/17 20:15 04/02/17 15:52 (NS Flush) 2 ml UNSCH PRN IV FLUSH 04/01/17 20:15 (NS Flush) 2 ml BID IV FLUSH 04/01/17 21:00 (Tylenol) 650 mg Q4H PRN PO 04/01/17 20:15 04/02/17 09:42 (Zofran Inj) 4 mg Q6H PRN IVP 04/01/17 20:15 (Heparin Inj) 5,000 units Q8H SQ 04/01/17 22:00 04/02/17 15:34 (Narcan Inj) 0.4 mg UNSCH PRN IV PUSH 04/01/17 20:15 Ceftriaxone Sodium 2000 mg/ Sodium Chloride 100 ml @ 200 mls/hr Q24H IV 04/01/17 22:00 04/01/17 23:30 (Duoneb Neb) 1 ampule Q4HR NEB PRN NEB 04/01/17 20:30 04/02/17 12:09 (Ecotrin Ec) 81 mg DAILY PO 04/02/17 09:00 04/02/17 08:49 (Symbicort 160-4.5 Mcg Inh) 1 puff Q12HR INH 04/01/17 21:00 04/02/17 08:48 (Flomax) 0.4 mg DAILY PO 04/02/17 09:00 04/02/17 08:49 (Ambien) 5 mg HS PRN PO 04/01/17 20:30 04/01/17 23:56 (Mucinex Er) 1,200 mg BID PO 04/02/17 09:00 04/02/17 08:50 (Ditropan) 2.5 mg Q12HR PO 04/02/17 21:00 Piperacillin Sod/ Tazobactam Sod 50 ml @ 100 mls/hr Q8H IV 04/02/17 16:00 04/02/17 15:45 (Percocet 5-325 Mg) 1 tab Q8HR PRN PO 04/02/17 15:30 04/02/17 15:32 (Morphine Inj) 0.5 mg Q4H PRN IV PUSH 04/02/17 14:45 (Pill Splitter) 1 ea UNSCH PRN OTHER 04/02/17 15:45 Family History NC Social History Tobacco use Denies EtOH Denies illicits ([place]) Physical Exam Vital Signs Vital Signs Date Time Temp Pulse Resp B/P (MAP) Pulse Ox O2 Delivery O2 Flow Rate FiO2 04/02/17 14:20 100/60 (73) 04/02/17 12:10 93 Nasal Cannula 3.00 04/02/17 12:00 98.8 114 18 78/48 (58) 95 04/02/17 08:00 121 04/02/17 08:00 98.6 125 18 85/52 (63) 99 04/02/17 03:50 97.0 113 18 87/52 (64) 91 04/01/17 23:00 98.7 118 20 81/50 (60) 91 04/01/17 21:44 96 Nasal Cannula 2.00 04/01/17 20:45 98.5 118 18 94/50 (65) 91 04/01/17 20:36 115 16 100/58 (72) 95 Nasal Cannula 2.00 04/01/17 19:30 118 20 98/60 (73) 95 Nasal Cannula 2.00 04/01/17 18:47 99 Nasal Cannula 2.00 Physical Exam GENERAL: Sleeping when I entered room, but was easily arousable. Very frail, appears older than stated age SKIN: Warm and dry. HEAD: Atraumatic. Normocephalic. EYES: Pupils equal and round. No scleral icterus. No injection or drainage. ENT: No nasal bleeding or discharge. Mucous membranes pink and moist. NECK: Trachea midline. No JVD. CARDIOVASCULAR: Regular rate and rhythm. RESPIRATORY: Diminished breath sounds throughout GASTROINTESTINAL: Abdomen tender in lower quadrants MUSCULOSKELETAL: Extremities without clubbing, cyanosis, or edema. No obvious deformities. NEUROLOGICAL: Awake and alert. Normal speech. PSYCHIATRIC: Appropriate mood and affect; insight and judgment normal. Laboratory Laboratory Tests Test 04/01/17 17:50 04/01/17 18:30 04/01/17 18:40 04/02/17 00:03 Urine Color DARK-BROWN Urine Turbidity CLOUDY Urine pH 7.5 Urine Specific [place] 1.020 Urine Protein 300 Urine Glucose (UA) NEG Urine Ketones NEG Urine Occult Blood MOD Urine Nitrite POS Urine Bilirubin SMALL Urine Urobilinogen 2.0 Urine Leukocyte Esterase LARGE Urine RBC Urine WBC Urine WBC Clumps MANY Urine Transitional Epithelial Cells 1 Urine Bacteria MANY Urine Mucus FEW Microscopic Urinalysis Comment CULTURE INDICATED Lactic Acid Level 2.2 0.9 White Blood Count 29.6 Red Blood Count 3.93 Hemoglobin 12.1 Hematocrit 37.5 Mean Corpuscular Volume 95.3 Mean Corpuscular Hemoglobin 30.8 Mean Corpuscular Hemoglobin Concent 32.3 Red Cell Distribution Width 14.5 Platelet Count 346 Mean Platelet Volume 8.4 Neutrophils (%) (Auto) 90.7 Lymphocytes (%) (Auto) 3.1 Monocytes (%) (Auto) 6.1 Eosinophils (%) (Auto) 0.0 Basophils (%) (Auto) 0.1 Neutrophils # (Auto) 26.9 Lymphocytes # (Auto) 0.9 Monocytes # (Auto) 1.8 Eosinophils # (Auto) 0.0 Basophils # (Auto) 0.0 CBC Comment DIFF FINAL Differential Comment Prothrombin Time 11.6 Prothromb Time International Ratio 1.1 Activated Partial Thromboplast Time 29.8 Blood Urea Nitrogen 61 Creatinine 3.78 Random Glucose 59 Total Protein 6.8 Albumin 2.8 Calcium Level 9.2 Alkaline Phosphatase 92 Aspartate Amino Transf (AST/SGOT) 19 Alanine Aminotransferase (ALT/SGPT) LESS THAN 6 Total Bilirubin 0.9 Sodium Level 133 Potassium Level 3.9 Chloride Level 97 Carbon Dioxide Level 26.7 Anion Gap 9 Estimat Glomerular Filtration Rate 12 Lipase 37 Test 04/02/17 03:55 White Blood Count 21.3 Red Blood Count 3.28 Hemoglobin 10.1 Hematocrit 31.2 Mean Corpuscular Volume 95.2 Mean Corpuscular Hemoglobin 30.7 Mean Corpuscular Hemoglobin Concent 32.2 Red Cell Distribution Width 14.3 Platelet Count 281 Mean Platelet Volume 8.7 Neutrophils (%) (Auto) 89.7 Lymphocytes (%) (Auto) 4.6 Monocytes (%) (Auto) 5.4 Eosinophils (%) (Auto) 0.1 Basophils (%) (Auto) 0.2 Neutrophils # (Auto) 19.1 Lymphocytes # (Auto) 1.0 Monocytes # (Auto) 1.2 Eosinophils # (Auto) 0.0 Basophils # (Auto) 0.0 CBC Comment DIFF FINAL Differential Comment Blood Urea Nitrogen 54 Creatinine 2.10 Random Glucose 71 Calcium Level 8.1 Sodium Level 139 Potassium Level 3.5 Chloride Level 105 Carbon Dioxide Level 25.7 Anion Gap 8 Estimat Glomerular Filtration Rate 24 Date/Time Source Procedure Growth Status 04/01/17 18:45 Blood Peripheral Aerobic Blood Culture - Preliminary NO GROWTH IN 1 DAY Resulted 04/01/17 18:45 Blood Peripheral Anaerobic Blood Culture - Preliminary NO GROWTH IN 1 DAY Resulted 04/01/17 17:50 Urine Random Urine Urine Culture - Preliminary IMMATURE GROWTH - REINCUBATE Resulted (Brandy Pond) Result Diagram: 04/02/17 0355 04/02/17 0355 Imaging Last Impressions Renal Ultrasound 04/01/17 0000 Signed Impressions: Service Date/Time: Saturday, April 01, 2017 23:30 - CONCLUSION: 1. Mild dilation of the renal sinus on the right side suggesting mild hydronephrosis. 2. No evidence of hydronephrosis on the left with normal prominence of the extrarenal pelvis. 3. Prominent distention of the gallbladder. Henry Quinteros MD ([place]) Assessment and Plan Problem List: (1) Acute renal failure (ARF) ICD Codes: N17.9 - Acute kidney failure, unspecified Plan: Renal failure likely multifactorial related to potential obstructive uropathy, volume depletion, hypotension, as well as recent NSAID use. UOP adequate with Aguilera reinsertion. Continue on IVF Pending urology consultation for hydronephrosis detected on US and urinary retention. No previous hx of CKD, so hopefully her functions will improve with continued hydration. Will follow labs in the AM. Avoid nephrotoxic medications including NSAIDs and iodinated contrast dyes. Avoid gadolinium with eGFR <30 (2) Urinary retention ICD Codes: R33.9 - Retention of urine, unspecified Status: Acute Plan: Pending urology consultation UCx pending BCx neg x24h (3) Hypotension ICD Codes: I95.9 - Hypotension, unspecified Plan: Chronic, but is a bit lower than her typical this admission. Potentially related to narcotics. Hypotension can exacerbate renal decline. Continue on NS for the present. (4) COPD (chronic obstructive pulmonary disease) ICD Codes: J44.9 - Chronic obstructive pulmonary disease, unspecified Status: Acute ([place] Pond) Assessment and Plan The exam, history, and the medical decision-making described in the above note were completed with the assistance of the PA-C. I reviewed and agree with the findings presented. I attest that I had a [id number] encounter with the patient on the same day, and personally performed and documented my assessment and findings in the medical record. , (Belén Bernal MD) Brandy [place]ond Apr 02, 2017 17:51 Belén Bernal MD Apr 03, 2017 17:03
[2017-04-02] MEDS ORDERED: OXYBUTYNIN CHLORIDE 5 MG TAB PO SCH (21:00)
[2017-04-02] MEDS: ZOLPIDEM TARTRATE 5 MG TAB PO PRN (22:19)
[2017-04-02] MEDS: cefTRIAXone INJ 2,000 MG in SODIUM CHLORIDE 0.9% INJ 100 ML IV SCH (22:19)
[2017-04-02] MEDS: OXYBUTYNIN CHLORIDE 5 MG TAB PO SCH (22:20)
[2017-04-03] VITALS (8 sets, daily range): BP systolic 84–98; BP diastolic 48–58; PULSE 71–110; RESP 16–19; TEMP 96.6–98.9; O2SAT 91–99
[2017-04-03] MEDS: PIPERACIL-TAZO 2.25 GM PREMIX 50 ML IV SCH ×3 (00:52→15:07)
[2017-04-03] MEDS: SODIUM CHLOR 0.9% 1000 ML INJ 1,000 ML IV SCH ×2 (02:15→12:15)
[2017-04-03] MEDS: HEPARIN SODIUM - SQ 10,000 UNITS/ML VIAL SQ SCH ×3 (05:38→23:25)
[2017-04-03 05:53] LABS: CALCIUM 8.4 MG/DL (8.5-10.1); CREATININE 0.7 MG/DL (0.50-1.00)
[2017-04-03 07:28] LABS: AUTOMATED NEUTROPHIL # 9.2 TH/MM3 (1.8-7.7); BASOPHIL % 0.4 % (0.0-2.0); EOSINOPHIL # 0.1 TH/MM3 (0-0.4); EOSINOPHIL % 0.7 % (0.0-4.0); HEMATOCRIT 31.7 % (35.0-46.0); LYMPH % 9.5 % (9.0-44.0); MEAN CELL VOLUME 96.4 FL (80.0-100.0); MEAN CORPUSCULAR HEMOGLOBIN 30.4 PG (27.0-34.0); MEAN CORPUSCULAR HGB CONC 31.5 % (32.0-36.0); MEAN PLATELET VOLUME 8.5 FL (7.0-11.0); MONO % 6.1 % (0.0-8.0); MONOCYTE # 0.7 TH/MM3 (0-0.9); NEUT % 83.3 % (16.0-70.0); PLATELET COUNT 264 TH/MM3 (150-450); RED BLOOD COUNT 3.28 MIL/MM3 (4.00-5.30); RED CELL DISTRIBUTION WIDTH 14.5 % (11.6-17.2); WHITE BLOOD COUNT 11.1 TH/MM3 (4.0-11.0)
[2017-04-03] MEDS: guaiFENesin E.R. 600 MG TAB PO SCH ×2 (07:52→20:01)
[2017-04-03] MEDS: TAMSULOSIN HCL 0.4 MG CAP PO SCH (07:52)
[2017-04-03] MEDS: BUDESONIDE-FORMOTEROL 160/4.5 MCG INHALER INH SCH ×2 (07:53→20:56)
[2017-04-03] MEDS: SODIUM CHLORIDE 0.9% FLUSH 10 ML FLUSH IV FLUSH SCH ×2 (07:53→21:00)
[2017-04-03] MEDS: OXYBUTYNIN CHLORIDE 5 MG TAB PO SCH (07:53)
[2017-04-03] MEDS: ASPIRIN EC 81 MG TABEC PO SCH (07:53)
[2017-04-03] MEDS: oxyCODONE/ACETAMINOPHEN 5 MG/325 MG TAB PO PRN ×3 (07:54→20:56)
[2017-04-03] MEDS: RESP: ALBUTEROL 2.5 MG/IPRATROPIUM 0.5 MG NEB (PRN) NEB ×3 (08:16→21:02)
--- NOTE | 2017-04-03 12:03 | PD.CONS ---
[facility] Service Urology Consult Requested By Dr. Han Reason for Consult Urinary retention Primary Care Physician Unknown Diagnosis: History of Present Illness 61-year-old female who was recently evaluated as inpatient consult back in February 2017 for postoperative urinary retention that developed after undergoing closed reduction of a left hip dislocation.. It was recommended that the patient be managed with a Aguilera catheter with office follow up for repeat voiding trial, possible urodynamics and possible cystoscopy. The patient reports that while at home the Aguilera catheter inadvertently came out and for several hours she felt great but was not producing any urine. Eventually she started to have a small amount of incontinence and developed lower abdominal discomfort. She presented to the emergency room where by a Aguilera catheter was replaced with immediate relief in her symptoms. Preliminary laboratory studies demonstrated elevation of the serum BUN and creatinine levels which normalized after Aguilera catheter placement. A urology consult is now placed regarding further recommendations. Review of Systems Constitutional: DENIES: Fever, Chills, Night Sweats Cardiovascular: DENIES: Chest pain Genitourinary: DENIES: Hematuria Except as stated in HPI: all other systems reviewed are Neg Past Family Social History Past Medical History COPD Hypertension Migraine headaches History pneumonia Past Surgical History Status post closed reduction left hip dislocation Status post multiple urethral dilations during childhood Reported Medications Refer to EMR Allergies: Coded Allergies: No Known Allergies (Verified Allergy, Unknown, 02/18/17) Active Ordered Medications Refer to EMR Family History Reviewed and noncontributory Social History alf smoker Denies history of alcohol or intravenous drug abuse Physical Exam Vital Signs Date Time Temp Pulse Resp B/P (MAP) Pulse Ox O2 Delivery O2 Flow Rate FiO2 04/03/17 11:30 98.7 104 19 85/48 (60) 95 04/03/17 08:54 16 04/03/17 08:16 98 Nasal Cannula 4.00 04/03/17 07:35 98.9 106 19 93/55 (68) 97 04/03/17 04:05 96.9 71 16 91/53 (66) 99 04/03/17 00:23 96.6 110 16 98/58 (71) 99 04/02/17 20:25 96.9 105 16 96 04/02/17 16:00 98.6 114 18 80/48 (59) 95 04/02/17 14:20 100/60 (73) 1/25/18 12:10 93 Nasal Cannula 3.00 Physical Exam GENERAL: This is a well-nourished, well-developed patient, in no apparent distress. SKIN: No rashes, ecchymoses or lesions. Cool and dry. HEAD: Atraumatic. Normocephalic. No temporal or scalp tenderness. EYES: Pupils equal round and reactive. Extraocular motions intact. No scleral icterus. No injection or drainage. ENT: Nose without bleeding, purulent drainage or septal hematoma. Throat without erythema, tonsillar hypertrophy or exudate. Uvula midline. Airway patent. NECK: Trachea midline. No JVD or lymphadenopathy. Supple, nontender, no meningeal signs. GASTROINTESTINAL: Abdomen soft, non-tender, nondistended. No hepato-splenomegaly , or palpable masses. No guarding. GENITOURINARY: Bladder not distended, Aguilera catheter draining clear yellow urine MUSCULOSKELETAL: Extremities without clubbing, cyanosis, or edema. No joint tenderness, effusion, or edema noted. No calf tenderness. Negative Homans sign bilaterally. NEUROLOGICAL: Awake and alert. Cranial nerves II through XII intact. Motor and sensory grossly within normal limits. Five out of 5 muscle strength in all muscle groups. Normal speech. Lab results reviewed: Yes Laboratory Tests Test 04/02/17 20:26 04/03/17 04:26 25-Hydroxy Vitamin D Total 21.4 Parathyroid Hormone (Intact) 15.4 White Blood Count 11.1 Red Blood Count 3.28 Hemoglobin 10.0 Hematocrit 31.7 Mean Corpuscular Volume 96.4 Mean Corpuscular Hemoglobin 30.4 Mean Corpuscular Hemoglobin Concent 31.5 Red Cell Distribution Width 14.5 Platelet Count 264 Mean Platelet Volume 8.5 Neutrophils (%) (Auto) 83.3 Lymphocytes (%) (Auto) 9.5 Monocytes (%) (Auto) 6.1 Eosinophils (%) (Auto) 0.7 Basophils (%) (Auto) 0.4 Neutrophils # (Auto) 9.2 Lymphocytes # (Auto) 1.0 Monocytes # (Auto) 0.7 Eosinophils # (Auto) 0.1 Basophils # (Auto) 0.0 CBC Comment DIFF FINAL Differential Comment Blood Urea Nitrogen 35 Creatinine 0.70 Random Glucose 81 Calcium Level 8.4 Sodium Level 142 Potassium Level 3.7 Chloride Level 110 Carbon Dioxide Level 26.0 Anion Gap 6 Estimat Glomerular Filtration Rate 85 Date/Time Source Procedure Growth Status 1/24/18 18:45 Blood Peripheral Aerobic Blood Culture - Preliminary NO GROWTH IN 2 DAYS Resulted 04/01/17 18:45 Blood Peripheral Anaerobic Blood Culture - Preliminary NO GROWTH IN 2 DAYS Resulted 04/01/17 17:50 Urine Random Urine Urine Culture - Final 50-100,000 CFU/ML MIXED GRAM POSITIVE... Complete Result Diagram: 04/03/17 0426 04/03/17 0426 Imaging Last Impressions Renal Ultrasound 04/01/17 0000 Signed Impressions: Service Date/Time: Saturday, April 01, 2017 23:30 - CONCLUSION: 1. Mild dilation of the renal sinus on the right side suggesting mild hydronephrosis. 2. No evidence of hydronephrosis on the left with normal prominence of the extrarenal pelvis. 3. Prominent distention of the gallbladder. Henry Quinteros MD Assessment and Plan Assessment and Plan Urologic impression: #1 urinary retention of indeterminate etiology #2 normalization of BUN/creatinine after Aguilera catheter placement Recommendations: #1 continue with Aguilera catheter to gravity drainage and discharge when medically stable with Aguilera to leg bag #2 office follow up for further urologic evaluation to include urodynamics and cystoscopy #3 Aguilera catheter to be changed every 3-4 weeks until outpatient urology evaluation is completed Lucho Nino MD Apr 03, 2017 12:03
--- NOTE | 2017-04-03 13:45 | HHI.PR ---
Subjective Remarks awake and alert, afebrile complains of pain- lower abdominal/spasm catheter area perez draining- dark, still cloudy urine Objective Vitals Vital Signs Date Time Temp Pulse Resp B/P (MAP) Pulse Ox O2 Delivery O2 Flow Rate FiO2 04/03/17 11:30 98.7 104 19 85/48 (60) 95 04/03/17 08:54 16 04/03/17 08:16 98 Nasal Cannula 4.00 04/03/17 07:35 98.9 106 19 93/55 (68) 97 04/03/17 04:05 96.9 71 16 91/53 (66) 99 04/03/17 00:23 96.6 110 16 98/58 (71) 99 04/02/17 20:25 96.9 105 16 96 04/02/17 16:00 98.6 114 18 80/48 (59) 95 04/02/17 14:20 100/60 (73) I/O 04/02/17 04/02/17 04/02/17 04/03/17 04/03/17 04/03/17 07:00 15:00 23:00 07:00 15:00 23:00 Intake Total 851 ml 720 ml 240 ml 240 ml Output Total 950 ml 300 ml 350 ml Balance 851 ml -230 ml -60 ml -110 ml Intake Oral 720 ml 240 ml 240 ml IV Total 851 ml Output Urine Total 950 ml 300 ml 350 ml # Bowel Movements 0 0 0 Result Diagram: 04/03/17 0426 04/03/17 0426 Imaging Last Impressions Renal Ultrasound 04/01/17 0000 Signed Impressions: Service Date/Time: Saturday, April 01, 2017 23:30 - CONCLUSION: 1. Mild dilation of the renal sinus on the right side suggesting mild hydronephrosis. 2. No evidence of hydronephrosis on the left with normal prominence of the extrarenal pelvis. 3. Prominent distention of the gallbladder. Henry Quinteros MD Objective Remarks anicteric sclerae no nuchal rigidity regular rhythm abdomen soft, nontender perez catheter in place- draining cloudy urine extremities no edema neuro exam non focal Urinary Catheter: Yes Assessment to: Continue Perez insert reason: Obstruction/Retention Date of Insertion: Apr 01, 2017 A/P Assessment and Plan 61 years old female with some extensive urologic issues Sepsis secondary to UTI- complicated- patient with chronic perez- complaining of leaking/spasms likely with udnerlying neurogenic bladder changed 04/01 day gf admission Leukocytosis - WBC 29.6- trending down continue on Zosyn. will DC rocephin consult ID for antibitoic recommendations on DC - - urien still cloudy- but cultures so far negative will get a repeat UA to see if pyuria improved continue IV fluids Acute kidney injury due to obstructive uropathy- perez possibly not functioning as patient reported leakage- sounds like with Underlying neurogenic bladder with pre renal component - resolving IV fluid hydration ff BMP Urinary retention with spasms - ? Neurogenic bladder Patient with continued urinary retention status post operative intervention Perez changed 04/01 Urology consulted--seen by Dr. Nino- keep perez - needs urodynamic studies and for recommendations Continue Flomax. change Ditropan to Detrol LA 2 mg daily COPD 02 requiring - in remission DuoNeb's Continue home oxygen Continue home Symbicort s/p Left hip arthroplasty 02/20 PT daily, out of bed regular diet Electrolytes: monitor and replete prn NS at 100 cc/hr Heparin SQ PT eval and treat CM consult for DC planning Elian Han MD Apr 03, 2017 13:45
--- NOTE | 2017-04-03 16:32 | HHI.NPPN ---
Subjective History of Present Illness The patient is a 61 yo [place] female who presented to the ED 04/01 with complaints of abdominal pain and urinary incontinence. Was recently admitted here in February for hip replacement and developed urinary retention post operatively. She subsequently had catheter placed and was advised to f/u with urology as an outpatient. She states she has been unable to f/u with Urology as "they couldn' t get me in for 6-8 weeks". Had indwelling Aguilera since her February discharge that she states spontaneously fell out on 03/31. Aguilera was reinserted in the ED on 04/01 and as per the patient she had significant urinary output (not documented). Of interest, states she has been out of her post-op medications ( Hydrocodone) and has been taking multiple OTC NSAIDs for pain relief for the past few weeks. Baseline SCr 0.5 Admitting SCr 3.78 eGFR 12 that improved to 2.10 eGFR 24 at consult. Renal US showed mild hydronephrosis on the right and prominent L renal pelvis without hydronephrosis. Urology has been consulted. Today, the patient is still having some lower abdominal pain, but overall is just complaining of generalized pain and requesting pain medications. Interval History Pt says she is feeling OK. Some pain and requesting additional pain medications (Brandy Pond) Review of Systems Musculoskeletal MS: Pain/Stiffness (Brandy Pond) Objective Data Data 04/03/17 04/04/17 19:00 07:00 Intake Total 650 ml Output Total 350 ml Balance 300 ml Intake Oral 650 ml Output Urine Total 350 ml Vital Signs Date Time Temp Pulse Resp B/P (MAP) Pulse Ox O2 Delivery O2 Flow Rate FiO2 04/03/17 15:58 16 04/03/17 15:48 98.8 102 19 84/53 (63) 97 04/03/17 11:30 98.7 104 19 85/48 (60) 95 04/03/17 08:54 16 04/03/17 08:16 98 Nasal Cannula 4.00 04/03/17 07:35 98.9 106 19 93/55 (68) 97 04/03/17 04:05 96.9 71 16 91/53 (66) 99 04/03/17 00:23 96.6 110 16 98/58 (71) 99 04/02/17 20:25 96.9 105 16 96 (Brandy Pond) -: 04/03/17 0426 04/03/17 0426 Imaging Last Impressions Renal Ultrasound 04/01/17 0000 Signed Impressions: Service Date/Time: Saturday, April 01, 2017 23:30 - CONCLUSION: 1. Mild dilation of the renal sinus on the right side suggesting mild hydronephrosis. 2. No evidence of hydronephrosis on the left with normal prominence of the extrarenal pelvis. 3. Prominent distention of the gallbladder. Henry Quinteros MD Medication Review Current Medications Medications (Trade) Dose Ordered Sig/Stacie Route Start Time Stop Time Status Last Admin Sodium Chloride 1,000 ml @ 42 mls/hr [id number] IV 04/01/17 20:15 04/03/17 02:15 (NS Flush) 2 ml UNSCH PRN IV FLUSH 04/01/17 20:15 (NS Flush) 2 ml BID IV FLUSH 04/01/17 21:00 04/03/17 07:53 (Tylenol) 650 mg Q4H PRN PO 04/01/17 20:15 04/02/17 09:42 (Zofran Inj) 4 mg Q6H PRN IVP 04/01/17 20:15 (Heparin Inj) 5,000 units Q8H SQ 04/01/17 22:00 04/03/17 15:05 (Narcan Inj) 0.4 mg UNSCH PRN IV PUSH 04/01/17 20:15 (Duoneb Neb) 1 ampule Q4HR NEB PRN NEB 04/01/17 20:30 04/03/17 12:56 (Ecotrin Ec) 81 mg DAILY PO 04/02/17 09:00 04/03/17 07:53 (Symbicort 160-4.5 Mcg Inh) 1 puff Q12HR INH 04/01/17 21:00 04/03/17 07:53 (Flomax) 0.4 mg DAILY PO 04/02/17 09:00 04/03/17 07:52 (Ambien) 5 mg HS PRN PO 04/01/17 20:30 04/02/17 22:19 (Mucinex Er) 1,200 mg BID PO 04/02/17 09:00 04/03/17 07:52 Piperacillin Sod/ Tazobactam Sod 50 ml @ 100 mls/hr Q8H IV 04/02/17 16:00 04/03/17 15:07 (Morphine Inj) 0.5 mg Q4H PRN IV PUSH 04/02/17 14:45 (Pill Splitter) 1 ea UNSCH PRN OTHER 04/02/17 15:45 (Percocet 5-325 Mg) 1 tab Q6H PRN PO 04/03/17 14:00 04/03/17 14:58 (Detrol La) 2 mg DAILY PO 04/03/17 16:00 (Brandy Pond) Physical Exam General Appearance: No Acute Distress, Comfortable (Brandy Pond) Pulmonary Resp Exam: Clear Bilaterally, Breath Sounds Equal (Brandy Pond) Cardiology CV Exam: Regular, Normal Sinus Rhythm (Brandy Pond) Integumentary Skin Exam: Clear, Warm, Dry (Brandy Pond) Extremeties Extremities Exam: No Edema (Brandy Pond) Neurologic Neuro Exam: Alert, Awake (Brandy Pond) Psychiatric Psych Exam: Appropriate Responses (Brandy Pond) Assessment/Plan Problem List: (1) Acute renal failure (ARF) ICD Codes: N17.9 - Acute kidney failure, unspecified Plan: Renal failure likely multifactorial related to potential obstructive uropathy, volume depletion, hypotension, as well as recent NSAID use. Appreciate urology consult Continue on IVF Renal functions approaching baseline. Will sign off. Please call if needed Avoid nephrotoxic medications including NSAIDs and iodinated contrast dyes. Avoid gadolinium with eGFR <30 (2) Urinary retention ICD Codes: R33.9 - Retention of urine, unspecified Status: Acute Plan: Pending urology consultation UCx pending BCx neg x24h (3) Hypotension ICD Codes: I95.9 - Hypotension, unspecified Plan: Chronic, but is a bit lower than her typical this admission. Potentially related to narcotics. Hypotension can exacerbate renal decline. Continue on NS for the present. (4) COPD (chronic obstructive pulmonary disease) ICD Codes: J44.9 - Chronic obstructive pulmonary disease, unspecified Status: Acute (Brandy Pond) Plan The exam, history, and the medical decision-making described in the above note were completed with the assistance of the PAOsei. I reviewed and agree with the findings presented. (Belén Bernal MD) Brandy Pond Apr 03, 2017 16:32 Belén Bernal MD Apr 04, 2017 16:45
[2017-04-03] MEDS ORDERED: ERGOCALCIFEROL (VIT D2) 50,000 UNIT CAP PO SCH (17:00)
--- NOTE | 2017-04-03 17:01 | PD.ID.CON ---
History of Present Illness Service ID Consult Requested By Dr Han Reason for Consult sepsis, complicated UTI Primary Care Physician Unknown Diagnoses: History of Present Illness 61 yo female with COPD and chronic urinary retention , chronic perez cath presented with suprapubic abdominal pain NO fever, but WBC was 29 K. + L shift UA markedly abnormal with innumerable WBC, many bacteria cw UTI. Urine clx cw contaminao=tion Blood clx negative 2/2 @ 2 days She also endorses diarrhea at the onset of her symptoms SHe feels better now On presentation also KATHY, which now resolved Review of Systems Gastrointestinal: COMPLAINS OF: Abdominal pain, Diarrhea Except as stated in HPI: all other systems reviewed are Neg Past Family Social History Allergies: Coded Allergies: No Known Allergies (Verified Allergy, Unknown, 02/18/17) Past Medical History COPD on 2 L nasal cannula continuously at home Past Surgical History Left hip reduction under anesthesia Left hip replacement Laparoscopy/BTL Active Ordered Medications Medications where reviewed in EMR Antibiotics Include: zosyn Family History Negative for CAD/DM Social History 40 pack year history of smoking, currently smokes 1 cigarette per day. Denies alcohol and illicit drugs. Physical Exam Vital Signs Vital Signs Date Time Temp Pulse Resp B/P (MAP) Pulse Ox O2 Delivery O2 Flow Rate FiO2 04/03/17 15:58 16 04/03/17 15:48 98.8 102 19 84/53 (63) 97 04/03/17 11:30 98.7 104 19 85/48 (60) 95 04/03/17 08:54 16 04/03/17 08:16 98 Nasal Cannula 4.00 04/03/17 07:35 98.9 106 19 93/55 (68) 97 04/03/17 04:05 96.9 71 16 91/53 (66) 99 04/03/17 00:23 96.6 110 16 98/58 (71) 99 04/02/17 20:25 96.9 105 16 96 Physical Exam CONSTITUTIONAL/GENERAL: This is an elderly frail thin patient, in no apparent distress. TUBES/LINES/DRAINS: SKIN: No jaundice, rashes, or lesions. Ecchymoses on upper extremities. No wounds seen anteriorly. Skin temperature appropriate. Not diaphoretic. HEAD: Atraumatic. Normocephalic. EYES: Pupils equal and round and reactive. Extraocular motions intact. No scleral icterus. No injection or drainage. Fundi not examined. ENT: Hearing grossly normal. Nose without bleeding or purulent drainage. Throat without visible erythema, exudates, masses, or lesions. NECK: Trachea midline. Supple, nontender. CARDIOVASCULAR: Regular rate and rhythm without murmurs, gallops, or rubs. No JVD. Peripheral pulses symmetric. RESPIRATORY/CHEST: Symmetric, unlabored respirations. Clear to auscultation. Breath sounds equal bilaterally. No wheezes, rales, or rhonchi. GASTROINTESTINAL: Abdomen soft, tender in suprapubic area , + distended. No hepato-splenomegaly, or palpable masses. No guarding. Bowel sounds present. GENITOURINARY: Without palpable bladder distension. Perez catheter in place with cloudy urine BL CVA tenderness more prominent on the R MUSCULOSKELETAL: Extremities without clubbing, cyanosis, or edema. No joint tenderness or effusion noted. No calf tenderness. No mottling or clubbing. BACK with prominent kyphosis LYMPHATICS: No palpable cervical or supraclavicular adenopathy. NEUROLOGICAL: Awake and alert. Motor and sensory grossly within normal limits. Follows commands. Clear speech. Moves all extremities. PSYCHIATRIC: No obvious anxiety/depression. no apparent hallucinations or other psychotic thought process. Laboratory Laboratory Tests Test 04/02/17 20:26 04/03/17 04:26 25-Hydroxy Vitamin D Total 21.4 Parathyroid Hormone (Intact) 15.4 White Blood Count 11.1 Red Blood Count 3.28 Hemoglobin 10.0 Hematocrit 31.7 Mean Corpuscular Volume 96.4 Mean Corpuscular Hemoglobin 30.4 Mean Corpuscular Hemoglobin Concent 31.5 Red Cell Distribution Width 14.5 Platelet Count 264 Mean Platelet Volume 8.5 Neutrophils (%) (Auto) 83.3 Lymphocytes (%) (Auto) 9.5 Monocytes (%) (Auto) 6.1 Eosinophils (%) (Auto) 0.7 Basophils (%) (Auto) 0.4 Neutrophils # (Auto) 9.2 Lymphocytes # (Auto) 1.0 Monocytes # (Auto) 0.7 Eosinophils # (Auto) 0.1 Basophils # (Auto) 0.0 CBC Comment DIFF FINAL Differential Comment Blood Urea Nitrogen 35 Creatinine 0.70 Random Glucose 81 Calcium Level 8.4 Sodium Level 142 Potassium Level 3.7 Chloride Level 110 Carbon Dioxide Level 26.0 Anion Gap 6 Estimat Glomerular Filtration Rate 85 Date/Time Source Procedure Growth Status 04/01/17 18:45 Blood Peripheral Aerobic Blood Culture - Preliminary NO GROWTH IN 2 DAYS Resulted 04/01/17 18:45 Blood Peripheral Anaerobic Blood Culture - Preliminary NO GROWTH IN 2 DAYS Resulted 04/01/17 17:50 Urine Random Urine Urine Culture - Final 50-100,000 CFU/ML MIXED GRAM POSITIVE... Complete Result Diagram: 04/03/17 0426 04/03/17 0426 Imaging Last Impressions Renal Ultrasound 04/01/17 0000 Signed Impressions: Service Date/Time: Saturday, April 01, 2017 23:30 - CONCLUSION: 1. Mild dilation of the renal sinus on the right side suggesting mild hydronephrosis. 2. No evidence of hydronephrosis on the left with normal prominence of the extrarenal pelvis. 3. Prominent distention of the gallbladder. Henry Quinteros MD Assessment and Plan Assessment and Plan UTI, complicated, aw indwelling perez perez was changed - clx negative blood and contam in urine Hypotension Diarrhea Sever leukocytosis on presentation - resolving cont zsyn dc vanco chk stool for C.diff recollect urine clx Lupe Solis MD Apr 03, 2017 17:01
[2017-04-03] MEDS: TOLTERODINE TARTRATE 2 MG CAP LA PO SCH (17:04)
[2017-04-03 17:40] LABS: BILIRUBIN, URINE NEG (NEG); BLOOD, URINE MOD (NEG); GLUCOSE,URINE NEG (NEG); KETONE, URINE NEG (NEG); NITRITE,URINE NEG (NEG); URINE COLOR YELLOW (YELLW/STRAW); URINE LEUKOCYTE ESTERASE LARGE (NEG); WHITE BLOOD CELL CLUMPS RARE
[2017-04-03] MEDS: PIPERACIL-TAZO 3.375 GM PREMIX 50 ML IV SCH ×2 (18:20→23:26)
[2017-04-03] MEDS: ZOLPIDEM TARTRATE 5 MG TAB PO PRN (20:01)
[2017-04-04] VITALS (11 sets, daily range): BP systolic 94–107; BP diastolic 54–67; PULSE 95–110; RESP 16–19; TEMP 97.6–98.7; O2SAT 96–99
[2017-04-04] MEDS: oxyCODONE/ACETAMINOPHEN 5 MG/325 MG TAB PO PRN ×4 (02:50→20:45)
[2017-04-04] MEDS: RESP: ALBUTEROL 2.5 MG/IPRATROPIUM 0.5 MG NEB (PRN) NEB ×2 (03:04→12:31)
[2017-04-04] MEDS: PIPERACIL-TAZO 3.375 GM PREMIX 50 ML IV SCH ×3 (05:56→17:10)
[2017-04-04] MEDS: HEPARIN SODIUM - SQ 10,000 UNITS/ML VIAL SQ SCH ×3 (05:56→20:46)
--- NOTE | 2017-04-04 07:56 | HHI.PR ---
Subjective Remarks good po 100%, no nausea or vomiting states had a good formed BM last evening- no diarrhea still having lower abdominal discomfort and pain afebrile Objective Vitals Vital Signs Date Time Temp Pulse Resp B/P (MAP) Pulse Ox O2 Delivery O2 Flow Rate FiO2 04/04/17 04:00 98.6 110 16 97/54 (68) 96 04/04/17 00:00 98.5 107 18 99/59 (72) 98 04/03/17 21:02 91 Nasal Cannula 4.00 04/03/17 20:00 98.8 105 16 89/52 (64) 98 Manual Cuff/Auscultation 04/03/17 15:58 16 04/03/17 15:48 98.8 102 19 84/53 (63) 97 04/03/17 11:30 98.7 104 19 85/48 (60) 95 04/03/17 08:54 16 04/03/17 08:16 98 Nasal Cannula 4.00 I/O 04/03/17 04/03/17 04/03/17 04/04/17 04/04/17 04/04/17 07:00 15:00 23:00 07:00 15:00 23:00 Intake Total 240 ml 650 ml 240 ml 240 ml Output Total 350 ml 350 ml 450 ml 50 ml Balance -110 ml 300 ml -210 ml 190 ml Intake Oral 240 ml 650 ml 240 ml 240 ml Output Urine Total 350 ml 350 ml 450 ml 50 ml # Bowel Movements 0 0 0 Result Diagram: 04/03/17 0426 04/03/17 0426 Imaging Last Impressions Renal Ultrasound 04/01/17 0000 Signed Impressions: Service Date/Time: Saturday, April 01, 2017 23:30 - CONCLUSION: 1. Mild dilation of the renal sinus on the right side suggesting mild hydronephrosis. 2. No evidence of hydronephrosis on the left with normal prominence of the extrarenal pelvis. 3. Prominent distention of the gallbladder. Henry Quinteros MD Objective Remarks anicteric sclerae no nuchal rigidity regular rhythm abdomen soft, tympanitic, slightly distended,tender to deep palpation lower abdomen perez catheter in place- draining extremities no edema neuro exam non focal Date of Insertion: Apr 01, 2017 A/P Assessment and Plan 61 years old female with some extensive urologic issues Sepsis secondary to UTI- complicated- patient with chronic perez- likely with udnerlying neurogenic bladder changed 04/01 day gf admission Leukocytosis - WBC 29.6- trending down continue on Zosyn q 6 appreciate ID recommendations repeat Urine culture pending Acute kidney injury due to obstructive uropathy- perez possibly not functioning as patient reported leakage- sounds like with Underlying neurogenic bladder with pre renal component - resolving IV fluid hydration ff BMP Urinary retention with spasms - ? Neurogenic bladder Patient with continued urinary retention status post operative intervention Perez changed 04/01. change perez every 3 weeks till complete urologic evaluation completed Urology consulted--seen by Dr. Nino- keep perez - needs urodynamic studies and for recommendations Continue Flomax. Detrol LA 2 mg daily for spasms OP ff up with Urology for complete urodynamic studies Abdominal pain, slight distention-? Ileus, + tenderness on exam + BM though, no nausea or vomiting get Xray of abdomen- flat and upright COPD 02 requiring - in remission DuoNeb's Continue home oxygen Continue home Symbicort s/p Left hip arthroplasty 02/20 PT daily Heparin SQ PT eval and treat- up and ambulate with a leg bag- per patient she has walker and cane at home CM consult for DC planning Elian Han MD Apr 04, 2017 07:56
[2017-04-04] MEDS: guaiFENesin E.R. 600 MG TAB PO SCH ×2 (08:28→20:43)
[2017-04-04] MEDS: ASPIRIN EC 81 MG TABEC PO SCH (08:28)
[2017-04-04] MEDS: TOLTERODINE TARTRATE 2 MG CAP LA PO SCH (08:28)
[2017-04-04] MEDS: TAMSULOSIN HCL 0.4 MG CAP PO SCH (08:29)
[2017-04-04] MEDS: SODIUM CHLORIDE 0.9% FLUSH 10 ML FLUSH IV FLUSH SCH ×2 (08:31→20:50)
[2017-04-04] MEDS: BUDESONIDE-FORMOTEROL 160/4.5 MCG INHALER INH SCH ×2 (08:31→20:50)
[2017-04-04] MEDS ORDERED: TOLTERODINE TARTRATE 2 MG CAP LA PO SCH (09:00)
--- NOTE | 2017-04-04 09:00 | RADRPT ---
EXAM DATE/TIME: 04/04/2017 08:38 [facility] COMPARISON: No previous studies available for comparison. INDICATIONS : Lower abdominal pain. MEDICAL HISTORY : Chronic obstructive pulmonary disease. Emphysema. SURGICAL HISTORY : Hysterectomy. Left hip replacement. ENCOUNTER: Initial ACUITY: 3 days PAIN SCORE: 10/10 LOCATION: Bilateral Abdomen. FINDINGS: Supine and upright views of the abdomen were performed. The there are multiple loops of air distende d large and small bowel without evidence of air-fluid level to suggest obstruction. This may reflect an ileus. No air fluid levels are seen. No abnormal masses, calcifications, or organomegaly is seen. The visualized lower lungs are clear. No evidence of free intraperitoneal gas. The osseous struct ures demonstrate diffuse osteopenia.. CONCLUSION: Air distended large and small bowel without evidence of bowel obstruction. Radha Cabrera MD on April 04, 2017 at 8:56 Board Certified Radiologist. This report was verified electronically.
[2017-04-04 09:19] LABS: ALBUMIN 1.9 GM/DL (3.4-5.0); CALCIUM 8.6 MG/DL (8.5-10.1); CREATININE 0.58 MG/DL (0.50-1.00); PHOSPHORUS 1.7 MG/DL (2.5-4.9)
[2017-04-04] MEDS: SODIUM CHLOR 0.9% 1000 ML INJ 1,000 ML IV SCH (09:35)
[2017-04-04] MEDS: RESP: IPRATROPIUM 0.5 MG/2.5 ML NEB NEB SCH ×3 (16:07→23:50)
[2017-04-04] MEDS: ZOLPIDEM TARTRATE 5 MG TAB PO PRN (20:43)
[2017-04-05] VITALS (11 sets, daily range): BP systolic 111–121; BP diastolic 69–80; PULSE 84–97; RESP 17–18; TEMP 96.3–99.3; O2SAT 96–100
[2017-04-05] MEDS: oxyCODONE/ACETAMINOPHEN 5 MG/325 MG TAB PO PRN ×4 (00:53→18:16)
[2017-04-05] MEDS: PIPERACIL-TAZO 3.375 GM PREMIX 50 ML IV SCH ×4 (00:53→18:17)
[2017-04-05] MEDS: SODIUM CHLOR 0.9% 1000 ML INJ 1,000 ML IV SCH (00:59)
[2017-04-05] MEDS: RESP: IPRATROPIUM 0.5 MG/2.5 ML NEB NEB SCH ×5 (03:10→19:27)
[2017-04-05] MEDS: HEPARIN SODIUM - SQ 10,000 UNITS/ML VIAL SQ SCH (05:27)
--- NOTE | 2017-04-05 07:56 | HHI.PR ---
Subjective Remarks persistent lower abdominal pain, and tenderness + Flatus, + BM 2 days ago, no nausea or vomiting toelrating po well Objective Vitals Vital Signs Date Time Temp Pulse Resp B/P (MAP) Pulse Ox O2 Delivery O2 Flow Rate FiO2 04/05/17 06:34 18 04/05/17 04:00 99.3 95 18 117/72 (87) 99 04/05/17 03:45 89 04/05/17 00:00 97.1 95 18 111/69 (83) 96 04/04/17 23:48 103 04/04/17 21:51 Nasal Cannula 2.00 04/04/17 20:00 97.6 95 16 107/67 (80) 97 04/04/17 19:43 99 04/04/17 19:19 97 Nasal Cannula 3.00 04/04/17 15:48 98.6 105 19 98/63 (75) 99 04/04/17 12:34 98 Nasal Cannula 4.00 04/04/17 12:28 103 04/04/17 11:43 98.7 101 19 99/62 (74) 98 I/O 04/04/17 04/04/17 04/04/17 04/05/17 04/05/17 04/05/17 07:00 15:00 23:00 07:00 15:00 23:00 Intake Total 240 ml 850 ml 1330 ml 340 ml Output Total 50 ml 600 ml 400 ml 500 ml Balance 190 ml 250 ml 930 ml -160 ml Intake Oral 240 ml 800 ml 480 ml 240 ml IV Total 50 ml 850 ml 100 ml Output Urine Total 50 ml 600 ml 400 ml 500 ml # Bowel Movements 0 0 0 Result Diagram: 04/03/17 0426 04/04/17 0702 Imaging Last Impressions Abdomen X-Ray 04/04/17 0800 Signed Impressions: Service Date/Time: Tuesday, April 04, 2017 08:38 - CONCLUSION: Air distended large and small bowel without evidence of bowel obstruction. Radha Cbarera MD Renal Ultrasound 04/01/17 0000 Signed Impressions: Service Date/Time: Saturday, April 01, 2017 23:30 - CONCLUSION: 1. Mild dilation of the renal sinus on the right side suggesting mild hydronephrosis. 2. No evidence of hydronephrosis on the left with normal prominence of the extrarenal pelvis. 3. Prominent distention of the gallbladder. Henry Quinteros MD Objective Remarks anicteric sclerae no nuchal rigidity regular rhythm abdomen soft, tympanitic, distended lower abdomen, + tenderness on palpation, good bowel sounds perez catheter in place- draining extremities no edema, no calf tenderness neuro exam non focal Date of Insertion: Apr 01, 2017 A/P Assessment and Plan 61 years old female with some extensive urologic issues Sepsis secondary to UTI- complicated- patient with chronic perez- likely with udnerlying neurogenic bladder changed 04/01 day gf admission Leukocytosis - WBC 29.6- trending down continue on Zosyn q 6 appreciate ID recommendations repeat Urine culture pending- no growth so far Acute kidney injury= Resolved - due to obstructive uropathy- perez possibly not functioning as patient reported leakage- sounds like with Underlying neurogenic bladder Urinary retention with spasms - ? Neurogenic bladder Patient with continued urinary retention status post operative intervention Perez changed 04/01. change perez every 3 weeks till complete urologic evaluation completed Urology consulted--seen by Dr. Nino- keep perez - needs urodynamic studies and for recommendations Continue Flomax. Detrol LA 2 mg daily for spasms OP ff up with Urology for complete urodynamic studies Persistent lower abdominal pain and tenderness and distention - ? colonic Ileus ? Ogilvies + BM though, no nausea or vomiting get GI consult- ? needs colonic decompression COPD 02 requiring - in remission DuoNeb's Continue home oxygen Continue home Symbicort s/p Left hip arthroplasty 02/20 PT daily Heparin SQ- will hold for now in the event of procedure PT eval and treat- up and ambulate with a leg bag- per patient she has walker and cane at home CM consult for DC planning Elian Han MD Apr 05, 2017 07:56
--- NOTE | 2017-04-05 10:22 | PD.CONS ---
HPI History of Present Illness This is a 61 year old []. PFSH Past Medical History COPD on 2 L nasal cannula continuously at home Past Surgical History Left hip reduction under anesthesia Left hip replacement Laparoscopy/BTL Coded Allergies: No Known Allergies (Verified Allergy, Unknown, 02/18/17) Family History Negative for CAD/DM Social History 40 pack year history of smoking, currently smokes 1 cigarette per day. Denies alcohol and illicit drugs. GI Exam Vitals I&O Vital Signs Date Time Temp Pulse Resp B/P (MAP) Pulse Ox O2 Delivery O2 Flow Rate FiO2 04/05/17 08:53 99 Nasal Cannula 3.00 04/05/17 06:34 18 04/05/17 04:00 99.3 95 18 117/72 (87) 99 04/05/17 03:45 89 04/05/17 00:00 97.1 95 18 111/69 (83) 96 04/04/17 23:48 103 04/04/17 21:51 Nasal Cannula 2.00 04/04/17 20:00 97.6 95 16 107/67 (80) 97 04/04/17 19:43 99 04/04/17 19:19 97 Nasal Cannula 3.00 04/04/17 15:48 98.6 105 19 98/63 (75) 99 04/04/17 12:34 98 Nasal Cannula 4.00 04/04/17 12:28 103 04/04/17 11:43 98.7 101 19 99/62 (74) 98 I/O 04/04/17 04/04/17 04/04/17 04/05/17 04/05/17 04/05/17 07:00 15:00 23:00 07:00 15:00 23:00 Intake Total 240 ml 850 ml 1330 ml 340 ml Output Total 50 ml 600 ml 400 ml 500 ml Balance 190 ml 250 ml 930 ml -160 ml Intake Oral 240 ml 800 ml 480 ml 240 ml IV Total 50 ml 850 ml 100 ml Output Urine Total 50 ml 600 ml 400 ml 500 ml # Bowel Movements 0 0 0 Laboratory Date/Time Source Procedure Growth Status 04/01/17 18:45 Blood Peripheral Aerobic Blood Culture - Preliminary NO GROWTH IN 3 DAYS Resulted 04/01/17 18:45 Blood Peripheral Anaerobic Blood Culture - Preliminary NO GROWTH IN 3 DAYS Resulted 04/03/17 17:00 Urine Clean Catch Urine Culture - Preliminary NO GROWTH IN 24 HOURS. Resulted Physical Examination HEENT: Pupils round and reactive to light; normocephalic; atraumatic; no jaundice. Throat is clear. NECK: Neck is supple, no JVD, no lymphadenopathy. CHEST: Chest is clear to auscultation and percussion. CARDIAC: Regular rate and rhythm with no murmur gallop or rubs. ABDOMEN: Soft, nondistended, nontender; no hepatosplenomegaly; bowel sounds are present in all four quadrants. EXTREMITIES: No clubbing, cyanosis, or edema. SKIN: Normal; no rash; no jaundice. GALLERY ASSISTANT: No focal deficits; alert and oriented times three. Edwina Martinez Apr 05, 2017 10:22
[2017-04-05] MEDS: TOLTERODINE TARTRATE 2 MG CAP LA PO SCH (10:37)
[2017-04-05] MEDS: guaiFENesin E.R. 600 MG TAB PO SCH ×2 (10:37→20:55)
[2017-04-05] MEDS: ASPIRIN EC 81 MG TABEC PO SCH (10:37)
[2017-04-05] MEDS: SODIUM CHLORIDE 0.9% FLUSH 10 ML FLUSH IV FLUSH SCH ×2 (10:38→20:47)
[2017-04-05] MEDS: TAMSULOSIN HCL 0.4 MG CAP PO SCH (10:38)
[2017-04-05] MEDS: BUDESONIDE-FORMOTEROL 160/4.5 MCG INHALER INH SCH ×2 (10:39→20:55)
--- NOTE | 2017-04-05 10:54 | PD.CONS ---
HPI History of Present Illness This is a 61-year-old female who came into the hospital on 04/01/17 with severe abdominal pain and urinary retention. Patient states that she had surgery back in January for left hip dislocation, and had to keep a Aguilera catheter in for 2 weeks post surgery. Aguilera catheter came out day before this hospital admission the patient has been having some overflow urinary incontinence. She states that she is taking pain meds every 6 hours at home since January, and has minimal activity at home. She states that she is ambulating with the assistance of a walker but only gets up twice a day and walks only a short distance. Patient does state some nausea and heartburn symptoms more so since January 2017. She does note some dysphagia which seems to wax and wane also. Patient is a poor historian to detail of her symptoms. Significant history is COPD with 2 L nasal cannula continuous at home. Patient has history of constipation, but states now her norm is every other day BM. Patient denies any diarrhea, fever, No acute shortness of breath. Patient has no history of EGD, colonoscopy was done back in her 30s which she states was normal. (Edwina Martinez) PFSH Past Medical History COPD on 2 L nasal cannula continuously at home Debility since January Chronic pain since January Chronic tobacco use dependence Past Surgical History Left hip reduction under anesthesia Left hip replacement Laparoscopy/BTL (Edwina Martinez) Coded Allergies: No Known Allergies (Verified Allergy, Unknown, 02/18/17) Medications Administered Medications Medications (Trade) Dose Ordered Sig/Stacie Route PRN Reason Start Time Stop Time Status Last Admin Dose Admin Sodium Chloride 1,000 ml @ 42 mls/hr [id number] IV 04/01/17 20:15 04/05/17 00:59 Sodium Chloride (NS Flush) 2 ml BID IV FLUSH 04/01/17 21:00 04/04/17 20:50 Acetaminophen (Tylenol) 650 mg Q4H PRN PO TEMP > 100.4 04/01/17 20:15 04/02/17 09:42 Heparin Sodium (Porcine) (Heparin Inj) 5,000 units Q8H SQ 04/01/17 22:00 Future Hold 04/05/17 05:27 Aspirin (Ecotrin Ec) 81 mg DAILY PO 04/02/17 09:00 04/04/17 08:28 Budesonide/ Formoterol Fumarate (Symbicort 160-4.5 Mcg Inh) 1 puff Q12HR INH 04/01/17 21:00 04/04/17 20:50 Tamsulosin HCl (Flomax) 0.4 mg DAILY PO 04/02/17 09:00 04/04/17 08:29 Zolpidem Tartrate (Ambien) 5 mg HS PRN PO SLEEP 04/01/17 20:30 04/04/17 20:43 Guaifenesin (Mucinex Er) 1,200 mg BID PO 04/02/17 09:00 04/04/17 20:43 Oxycodone/ Acetaminophen (Percocet 5-325 Mg) 1 tab Q6H PRN PO PAIN SCALE 4 TO 10 04/03/17 14:00 04/05/17 05:31 Tolterodine Tartrate (Detrol La) 2 mg DAILY PO 04/03/17 16:00 04/04/17 08:28 Ergocalciferol (Drisdol) 50,000 units Q7D PO 04/03/17 17:00 04/03/17 18:19 Piperacillin Sod/ Tazobactam Sod 50 ml @ 100 mls/hr Q6H IV 04/03/17 18:00 04/05/17 05:27 Ipratropium [place] (Atrovent Neb) 0.5 mg Q4HR NEB NEB 04/04/17 16:00 04/05/17 08:51 Family History Negative for CAD/DM Social History 40 pack year history of smoking, currently smokes 1 cigarette per day. Denies alcohol and illicit drugs. (Edwina Martinez) Review of Systems Constitutional: COMPLAINS OF: Fatigue Gastrointestinal: COMPLAINS OF: Constipation, Nausea, Difficulty Swallowing ( Edwina Martinez) GI Exam Vitals I&O Vital Signs Date Time Temp Pulse Resp B/P (MAP) Pulse Ox O2 Delivery O2 Flow Rate FiO2 04/05/17 08:53 99 Nasal Cannula 3.00 04/05/17 06:34 18 04/05/17 04:00 99.3 95 18 117/72 (87) 99 04/05/17 03:45 89 04/05/17 00:00 97.1 95 18 111/69 (83) 96 04/04/17 23:48 103 04/04/17 21:51 Nasal Cannula 2.00 04/04/17 20:00 97.6 95 16 107/67 (80) 97 04/04/17 19:43 99 04/04/17 19:19 97 Nasal Cannula 3.00 04/04/17 15:48 98.6 105 19 98/63 (75) 99 04/04/17 12:34 98 Nasal Cannula 4.00 04/04/17 12:28 103 04/04/17 11:43 98.7 101 19 99/62 (74) 98 I/O 04/04/17 04/04/17 04/04/17 04/05/17 04/05/17 04/05/17 07:00 15:00 23:00 07:00 15:00 23:00 Intake Total 240 ml 850 ml 1330 ml 340 ml Output Total 50 ml 600 ml 400 ml 500 ml Balance 190 ml 250 ml 930 ml -160 ml Intake Oral 240 ml 800 ml 480 ml 240 ml IV Total 50 ml 850 ml 100 ml Output Urine Total 50 ml 600 ml 400 ml 500 ml # Bowel Movements 0 0 0 Imaging Last Impressions Abdomen X-Ray 04/04/17 0800 Signed Impressions: Service Date/Time: Tuesday, April 04, 2017 08:38 - CONCLUSION: Air distended large and small bowel without evidence of bowel obstruction. Radha Cabrera MD Renal Ultrasound 04/01/17 0000 Signed Impressions: Service Date/Time: Saturday, April 01, 2017 23:30 - CONCLUSION: 1. Mild dilation of the renal sinus on the right side suggesting mild hydronephrosis. 2. No evidence of hydronephrosis on the left with normal prominence of the extrarenal pelvis. 3. Prominent distention of the gallbladder. Henry Quinteros MD Laboratory Date/Time Source Procedure Growth Status 04/01/17 18:45 Blood Peripheral Aerobic Blood Culture - Preliminary NO GROWTH IN 3 DAYS Resulted 04/01/17 18:45 Blood Peripheral Anaerobic Blood Culture - Preliminary NO GROWTH IN 3 DAYS Resulted 04/03/17 17:00 Urine Clean Catch Urine Culture - Preliminary NO GROWTH IN 24 HOURS. Resulted Physical Examination HEENT: Pupils round and reactive to light; normocephalic; atraumatic; no jaundice. Pale NECK: Neck is supple CHEST: Chest diminished sounds, low volumes no audible wheezing or rhonchi CARDIAC: Regular rate and rhythm ABDOMEN: Taut, mild distention, pain left lower quadrant bowel sounds minimal if any EXTREMITIES: No clubbing, cyanosis, or edema. SKIN: Dry ready skin turgor; no rash; no jaundice. INSTRUCTIONAL FACILITATOR: Awake speech is clear, poor historian to detail (Edwina Martinez) Assessment and Plan Assessment: (1) Postoperative anemia due to acute blood loss ICD Codes: D62 - Acute posthemorrhagic anemia Status: Acute Plan Ileus, CT shows large and small bowel dilation without obstruction. Patient states passing some flatus, nausea mild with occasional heartburn, no vomiting. This could be related to her pain meds that are being taken every 6 hours and minimal to no activity at home since her hip surgery. Patient is only getting up off the couch or out of her bed 2 times a day to walk short distances in her home. Patient has end-stage COPD with home O2 which also keeps her from being very active and being able to ambulate any distance. Dysphagia, symptoms are fairly vague but states that she does have heartburn and dysphagia or so since her surgery in January 2017 History of constipation, BM currently every other day most of the time but this is also probably due to dietary, inactivity, and chronic pain management Plan Clear liquids no carbonated drinks, if patient does start to have nausea and vomiting nothing by mouth, and is passing gas. No vomiting Abdomen soft, no distention, if patient starts vomiting may insert NG tube and connected to low intermittent suction. Consider EGD and colonoscopy once patient can tolerate prep, TBA Protonix 40 mg IV daily Consider physical therapy for increased activity and ambulation daily Monitor labs On after for any acute bleeding episodes Plan a care will be based on symptom management, to follow This patient has been seen by myself and Dr. Robles, this note is written on his behalf (Edwina Martinez) Plan Patient was seen and examined, agree with above Notes, patient concern about her dysphagia, could be neurological but we cannot rule out possible stricture so we'll proceed with upper endoscopy with possible dilation tomorrow and will defer the colonoscopy for a later date since there is no emergency on that could be done as an inpatient or outpatient once her swallowing is improved and when she is able to tolerate prep (Sunita Robles MD) Edwina Martinez Apr 05, 2017 10:54 Sunita Robles MD Apr 05, 2017 12:23
[2017-04-05] MEDS ORDERED: PEG (High)/E-LYTE SOLN 4000 ML BTL PO ONE (16:00)
[2017-04-05] MEDS: ZOLPIDEM TARTRATE 5 MG TAB PO PRN (20:56)
[2017-04-06] VITALS (9 sets, daily range): BP systolic 102–140; BP diastolic 69–90; PULSE 87–115; RESP 18; TEMP 96–98.4; O2SAT 96–100
[2017-04-06] MEDS: PIPERACIL-TAZO 3.375 GM PREMIX 50 ML IV SCH ×4 (00:46→16:44)
[2017-04-06] MEDS: SODIUM CHLOR 0.9% 1000 ML INJ 1,000 ML IV SCH (00:47)
[2017-04-06] MEDS: oxyCODONE/ACETAMINOPHEN 5 MG/325 MG TAB PO PRN ×4 (00:51→22:46)
[2017-04-06] MEDS: RESP: IPRATROPIUM 0.5 MG/2.5 ML NEB NEB SCH ×6 (00:55→20:20)
[2017-04-06] MEDS ORDERED: METOPROLOL TARTRATE 25 MG TAB PO PRN (03:00)
[2017-04-06] MEDS ORDERED: CHLORHEXIDINE GLUCONATE 2 % 1 PACK (2 CLOTHS) TOPICAL PRN (03:00)
[2017-04-06] MEDS ORDERED: LACTATED RINGER'S 1000 ML IV PRN (03:00)
[2017-04-06] MEDS ORDERED: POVIDONE IODINE 5% (ANTISEPSIS KIT) 4 APPLICATIONS EACH NARE PRN (03:00)
--- NOTE | 2017-04-06 08:36 | HHI.PR ---
Subjective Remarks seen 1 pm- back from Procedure- toelrated well abdominal exam- much improved- less distended, no guarding, good bowel sounds Objective Vitals Vital Signs Date Time Temp Pulse Resp B/P (MAP) Pulse Ox O2 Delivery O2 Flow Rate FiO2 04/06/17 07:33 98 Nasal Cannula 2.00 04/06/17 04:00 97.7 92 18 128/76 (93) 98 04/06/17 03:47 87 04/06/17 01:30 18 04/06/17 00:00 98.4 97 18 140/90 (107) 98 04/05/17 22:46 Nasal Cannula 2.00 04/05/17 20:00 96.3 91 18 115/79 (91) 98 04/05/17 19:41 96 04/05/17 19:29 96 Nasal Cannula 2.00 04/05/17 17:27 84 04/05/17 16:00 98.5 92 18 121/80 (94) 99 04/05/17 12:00 99.0 90 17 113/69 (84) 98 04/05/17 10:00 99 Nasal Cannula 3.00 04/05/17 08:53 99 Nasal Cannula 3.00 I/O 04/05/17 04/05/17 04/05/17 04/06/17 04/06/17 04/06/17 07:00 15:00 23:00 07:00 15:00 23:00 Intake Total 340 ml 480 ml 992 ml 588 ml Output Total 500 ml 500 ml 1000 ml 750 ml Balance -160 ml -20 ml -8 ml -162 ml Intake Oral 240 ml 480 ml 480 ml 0 ml IV Total 100 ml 512 ml 588 ml Output Urine Total 500 ml 500 ml 1000 ml 750 ml # Bowel Movements 0 0 0 0 Result Diagram: 04/03/17 0426 04/04/17 0702 Imaging Last Impressions Abdomen X-Ray 04/04/17 0800 Signed Impressions: Service Date/Time: Tuesday, April 04, 2017 08:38 - CONCLUSION: Air distended large and small bowel without evidence of bowel obstruction. Radha Cabrera MD Renal Ultrasound 04/01/17 0000 Signed Impressions: Service Date/Time: Saturday, April 01, 2017 23:30 - CONCLUSION: 1. Mild dilation of the renal sinus on the right side suggesting mild hydronephrosis. 2. No evidence of hydronephrosis on the left with normal prominence of the extrarenal pelvis. 3. Prominent distention of the gallbladder. Henry Quinteros MD Objective Remarks anicteric sclerae no nuchal rigidity regular rhythm abdomen soft, tympanitic, distended lower abdomen, + tenderness on palpation, good bowel sounds perez catheter in place- draining extremities no edema, no calf tenderness neuro exam non focal Procedures 04/06- EGD- gastric ulcers /colonosocopy- rectal polyp Date of Insertion: Apr 01, 2017 A/P Assessment and Plan 61 years old female with some extensive urologic issues Sepsis secondary to UTI- complicated- patient with chronic perez- likely with udnerlying neurogenic bladder changed 04/01 day gf admission Leukocytosis - WBC 29.6- trending down continue on Zosyn q 6 appreciate ID recommendations repeat Urine culture pending- no growth so far Acute kidney injury= Resolved - due to obstructive uropathy- perez possibly not functioning as patient reported leakage- sounds like with Underlying neurogenic bladder Urinary retention with spasms - ? Neurogenic bladder Patient with continued urinary retention status post operative intervention Perez changed 04/01. change perez every 3 weeks till complete urologic evaluation completed Urology consulted--seen by Dr. Nino- keep perez - needs urodynamic studies and for recommendations Continue Flomax. Detrol LA 2 mg daily for spasms OP ff up with Urology for complete urodynamic studies S/P EGD/colonosocpy - Ulcers/ rectal polyps start PPI COPD 02 requiring - in remission DuoNeb's Continue home oxygen Continue home Symbicort s/p Left hip arthroplasty 02/20 PT daily Heparin SQ- will hold for now in the event of procedure PT eval and treat- up and ambulate with a leg bag- per patient she has walker and cane at home CM consult for Elian Bowens MD Apr 06, 2017 08:36
--- NOTE | 2017-04-06 10:07 | PD.PROCEDR ---
GI Procedure PROCEDURE PERFORMED [] INDICATION FOR PROCEDURE [] PROCEDURE: The procedure, risks and benefits were discussed with Ms. Nelson and informed consent was obtained. Anesthesia sedated her with Diprivan. She was placed in the left lateral decubitus position. EGD: The Pentax videoscope was introduced through the oropharynx and advanced to the second portion of the duodenum under direct visualization. Retroflexion was performed in the stomach. Multiple large ulcers in the body of the stomach biopsy was done, esophagitis biopsy from the EG junction Colonoscopy: Rectal exam was performed, scope was placed in the rectum advanced under visual guidance to the cecum which was identified by the ileocecal valve and appendiceal orifice, there was significant amount of stool throughout the colon may interfere with the vision of small lesion, the scope was brought back gradually with visualization of the colonic mucosa down to the rectum there was a small polyp in the rectum ablated with heat Retroflexion was performed of the scope brought back without immediate constipation ESTIMATED BLOOD LOSS: None SPECIMENS REMOVED: Gastric ulcer COMPLICATIONS: None IMPRESSION: Mild esophagitis with irregular Z line biopsy from the EG junction Multiple large ulcers in the body of the stomach biopsy was done Some stool throughout the colon Small polyp in the rectum ablated with heat Small hemorrhoid No active bleeding PLAN: Clear liquid advance as tolerated Protonix 40 mg daily Gastrin level No NSAIDs Colonoscopy in 1 year Monitor H&H with packed RBC as needed Sunita Robles MD Apr 06, 2017 10:07
--- NOTE | 2017-04-06 10:09 | HHI.GIFU ---
Subjective Remarks Patient laying in bed comfortably, no active bleeding, still abdominal discomfort Objective Vitals I&O Vital Signs Date Time Temp Pulse Resp B/P (MAP) Pulse Ox O2 Delivery O2 Flow Rate FiO2 04/06/17 07:33 98 Nasal Cannula 2.00 04/06/17 04:00 97.7 92 18 128/76 (93) 98 04/06/17 03:47 87 04/06/17 01:30 18 04/06/17 00:00 98.4 97 18 140/90 (107) 98 04/05/17 22:46 Nasal Cannula 2.00 04/05/17 20:00 96.3 91 18 115/79 (91) 98 04/05/17 19:41 96 04/05/17 19:29 96 Nasal Cannula 2.00 04/05/17 17:27 84 04/05/17 16:00 98.5 92 18 121/80 (94) 99 04/05/17 12:00 99.0 90 17 113/69 (84) 98 I/O 04/05/17 04/05/17 04/05/17 04/06/17 04/06/17 04/06/17 07:00 15:00 23:00 07:00 15:00 23:00 Intake Total 340 ml 480 ml 992 ml 588 ml Output Total 500 ml 500 ml 1000 ml 750 ml Balance -160 ml -20 ml -8 ml -162 ml Intake Oral 240 ml 480 ml 480 ml 0 ml IV Total 100 ml 512 ml 588 ml Output Urine Total 500 ml 500 ml 1000 ml 750 ml # Bowel Movements 0 0 0 0 Laboratory Date/Time Source Procedure Growth Status 04/01/17 18:45 Blood Peripheral Aerobic Blood Culture - Preliminary NO GROWTH IN 4 DAYS Resulted 04/01/17 18:45 Blood Peripheral Anaerobic Blood Culture - Preliminary NO GROWTH IN 4 DAYS Resulted 04/03/17 17:00 Urine Clean Catch Urine Culture - Final NO GROWTH IN 48 HOURS. Complete Physical Exam HEENT: Pupils round and reactive to light; normocephalic; atraumatic; no jaundice. Throat is clear. NECK: Neck is supple, no JVD, no lymphadenopathy. CHEST: Chest is clear to auscultation and percussion. CARDIAC: Regular rate and rhythm with no murmur gallop or rubs. ABDOMEN: Soft, nondistended, mild abdominal discomfort; no hepatosplenomegaly; bowel sounds are present in all four quadrants. EXTREMITIES: No clubbing, cyanosis, or edema. SKIN: Normal; no rash; no jaundice. KEEPER HELPER: No focal deficits; alert and oriented times three. Assessment and Plan Assessment: (1) Postoperative anemia due to acute blood loss ICD Codes: D62 - Acute posthemorrhagic anemia Status: Acute Plan Patient was seen and examined, agree with above Notes, patient concern about her dysphagia, could be neurological but we cannot rule out possible stricture so we'll proceed with upper endoscopy with possible dilation tomorrow and will defer the colonoscopy for a later date since there is no emergency on that could be done as an inpatient or outpatient once her swallowing is improved and when she is able to tolerate prep Physician Comments 04/06/2017 patient is doing okay today no active bleeding tolerated prep for colonoscopy still some stool in the bowel movement IMPRESSION: Mild esophagitis with irregular Z line biopsy from the EG junction Multiple large ulcers in the body of the stomach biopsy was done Some stool throughout the colon Small polyp in the rectum ablated with heat Small hemorrhoid No active bleeding PLAN: Clear liquid advance as tolerated Protonix 40 mg daily Gastrin level No NSAIDs Colonoscopy in 1 year Monitor H&H with packed RBC as needed Sunita Robles MD Apr 06, 2017 10:09
[2017-04-06] MEDS: TOLTERODINE TARTRATE 2 MG CAP LA PO SCH (11:14)
[2017-04-06] MEDS: guaiFENesin E.R. 600 MG TAB PO SCH ×2 (11:14→20:46)
[2017-04-06] MEDS: ASPIRIN EC 81 MG TABEC PO SCH (11:14)
[2017-04-06] MEDS: TAMSULOSIN HCL 0.4 MG CAP PO SCH (11:14)
[2017-04-06] MEDS: SODIUM CHLORIDE 0.9% FLUSH 10 ML FLUSH IV FLUSH SCH ×2 (11:15→20:47)
[2017-04-06] MEDS: BUDESONIDE-FORMOTEROL 160/4.5 MCG INHALER INH SCH ×2 (11:21→20:47)
--- NOTE | 2017-04-06 14:36 | HHI.FF ---
Face to Face Verification Diagnosis: (1) UTI (urinary tract infection) (2) Urinary retention (3) COPD (chronic obstructive pulmonary disease) (4) Impaired mobility and activities of daily living (5) GIB with gastric ulcer on EGD Physical Therapy Order: Evaluate and Treat, Improve ambulation Occupational Therapy Order: Evaluate and Treat Home Health Nursing Order: Medical education Signs/symptoms of disease process Nursing assessment with vital signs Aguilera catheter maintenance I have seen patient Toyin Nelson on 04/06/17. My clinical findings support the need for the requested home health care services because: Ltd mobility - disease progression Patient has SOB Deconditioned w/ increased weakness Need for psychosocial assistance High risk of falls Infection w/ risk of complications I certify that my clinical findings support that this patient is homebound because: Hx COPD- exertion dyspnea/weakness Need for psychosocial assistance Elian Han MD Apr 06, 2017 14:36
[2017-04-06] MEDS: PANTOPRAZOLE SOD 40 MG DELAYED RELEASE TAB PO SCH (16:44)
[2017-04-06] MEDS: ZOLPIDEM TARTRATE 5 MG TAB PO PRN (20:46)
--- NOTE | 2017-04-06 23:27 | HHI.IDPN ---
Subjective Subjective Remarks pt seen earlier today she is doing good no fever all urine cxlx are negative, but UA still with prominent pyuria Antibiotics zosyn Allergies: Coded Allergies: No Known Allergies (Verified Allergy, Unknown, 02/18/17) Objective . Vital Signs Date Time Temp Pulse Resp B/P (MAP) Pulse Ox O2 Delivery O2 Flow Rate FiO2 04/06/17 20:20 96 Nasal Cannula 3.00 04/06/17 19:34 106 04/06/17 16:00 97.1 115 18 102/69 (80) 100 04/06/17 12:00 96.0 105 18 125/77 (93) 98 04/06/17 10:17 106 18 130/58 (82) 99 Room Air 04/06/17 08:00 96.7 108 18 126/79 (95) 98 04/06/17 07:33 98 Nasal Cannula 2.00 04/06/17 04:00 97.7 92 18 128/76 (93) 98 04/06/17 03:47 87 04/06/17 01:30 18 04/06/17 00:00 98.4 97 18 140/90 (107) 98 04/06/17 04/06/17 04/07/17 15:00 23:00 07:00 Intake Total 1000 ml Output Total 575 ml Balance 425 ml Other 1000 ml Output Urine Total 575 ml # Bowel Movements 1 . Laboratory Tests Test 04/06/17 16:10 Imaging Last Impressions Abdomen X-Ray 04/04/17 0800 Signed Impressions: Service Date/Time: Tuesday, April 04, 2017 08:38 - CONCLUSION: Air distended large and small bowel without evidence of bowel obstruction. Radha Cabrera MD Renal Ultrasound 04/01/17 0000 Signed Impressions: Service Date/Time: Saturday, April 01, 2017 23:30 - CONCLUSION: 1. Mild dilation of the renal sinus on the right side suggesting mild hydronephrosis. 2. No evidence of hydronephrosis on the left with normal prominence of the extrarenal pelvis. 3. Prominent distention of the gallbladder. Henry Quinteros MD Physical Exam CONSTITUTIONAL/GENERAL: This is an elderly frail thin patient, in no apparent distress. TUBES/LINES/DRAINS: SKIN: No jaundice, rashes, or lesions. Ecchymoses on upper extremities. No wounds seen anteriorly. Skin temperature appropriate. Not diaphoretic. CARDIOVASCULAR: Regular rate and rhythm without murmurs, gallops, or rubs. No JVD. Peripheral pulses symmetric. RESPIRATORY/CHEST: Symmetric, unlabored respirations. Clear to auscultation. Breath sounds equal bilaterally. No wheezes, rales, or rhonchi. GASTROINTESTINAL: Abdomen soft, tender in suprapubic area , + distended. No hepato-splenomegaly, or palpable masses. No guarding. Bowel sounds present. GENITOURINARY: Without palpable bladder distension. Perez catheter in place with cloudy urine mild tenderness in suprapubic area BL CVA tenderness more prominent on the R MUSCULOSKELETAL: Extremities without clubbing, cyanosis, or edema. No joint tenderness or effusion noted. No calf tenderness. No mottling or clubbing. BACK with prominent kyphosis NEUROLOGICAL: Awake and alert. Motor and sensory grossly within normal limits. Follows commands. Clear speech. Moves all extremities. Assessment & Plan Remarks UTI, complicated, aw indwelling perez perez was changed - clx negative blood and contam in urine Hypotension Diarrhea Sever leukocytosis on presentation - resolved dc zsyn start po levaquin recollect UA, C+S suggest fu with urologist as o/p for persistent pyuria/hematuria Lupe Solis MD Apr 06, 2017 23:27
[2017-04-07 01:24] VITALS: O2SAT 96
[2017-04-07] MEDS: RESP: IPRATROPIUM 0.5 MG/2.5 ML NEB NEB SCH ×3 (01:24→08:05)
[2017-04-07] MEDS: oxyCODONE/ACETAMINOPHEN 5 MG/325 MG TAB PO PRN ×2 (04:51→10:43)
--- NOTE | 2017-04-07 07:44 | HHI.PR ---
Subjective Remarks wants to eat more ready to go home- requesting for pain meds Objective Vitals Vital Signs Date Time Temp Pulse Resp B/P (MAP) Pulse Ox O2 Delivery O2 Flow Rate FiO2 04/07/17 01:24 96 Nasal Cannula 3.00 04/06/17 20:20 96 Nasal Cannula 3.00 04/06/17 19:34 106 04/06/17 19:00 Nasal Cannula 2.00 04/06/17 16:00 97.1 115 18 102/69 (80) 100 04/06/17 12:00 96.0 105 18 125/77 (93) 98 04/06/17 10:17 106 18 130/58 (82) 99 Room Air 04/06/17 08:00 96.7 108 18 126/79 (95) 98 I/O 04/06/17 04/06/17 04/06/17 04/07/17 04/07/17 04/07/17 07:00 15:00 23:00 07:00 15:00 23:00 Intake Total 588 ml 1000 ml 1000 ml Output Total 750 ml 575 ml Balance -162 ml 425 ml 1000 ml Intake Oral 0 ml IV Total 588 ml 1000 ml Other 1000 ml Output Urine Total 750 ml 575 ml # Bowel Movements 0 1 Result Diagram: 04/03/17 0426 04/04/17 0702 Imaging Last Impressions Abdomen X-Ray 04/04/17 0800 Signed Impressions: Service Date/Time: Tuesday, April 04, 2017 08:38 - CONCLUSION: Air distended large and small bowel without evidence of bowel obstruction. Radha Cabrera MD Renal Ultrasound 04/01/17 0000 Signed Impressions: Service Date/Time: Saturday, April 01, 2017 23:30 - CONCLUSION: 1. Mild dilation of the renal sinus on the right side suggesting mild hydronephrosis. 2. No evidence of hydronephrosis on the left with normal prominence of the extrarenal pelvis. 3. Prominent distention of the gallbladder. Herny Quinteros MD Objective Remarks anicteric sclerae no nuchal rigidity regular rhythm abdomen soft, tympanitic, good bowel sounds perez catheter in place- draining extremities no edema, no calf tenderness, moves all extremities spontaneously neuro exam non focal Procedures 04/06- EGD- gastric ulcers colonosocopy- rectal polyp Assessment to: Continue Perez insert reason: Obstruction/Retention Date of Insertion: Apr 01, 2017 A/P Assessment and Plan 61 years old female with some extensive urologic issues Sepsis secondary to UTI- complicated- patient with chronic perez- likely with udnerlying neurogenic bladder changed 04/01 day gf admission Leukocytosis - WBC 29.6- trending down Persistent pyuria- but wbc down on Zosyn q 6- change to po levaquin once daily till 04/14 appreciate ID recommendations repeat Urine culture pending- no growth so far Acute kidney injury= Resolved - due to obstructive uropathy- perez possibly not functioning as patient reported leakage- sounds like with Underlying neurogenic bladder Urinary retention with spasms - ? Neurogenic bladder Patient with continued urinary retention status post operative intervention Perez changed 04/01. change perez every 3 weeks till complete urologic evaluation completed Urology consulted--seen by Dr. Nino- keep perez - needs urodynamic studies and for recommendations Continue Flomax. Detrol LA 2 mg daily for spasms OP ff up with Urology for complete urodynamic studies- dr. Nino- d/w patient S/P EGD/colonosocpy - Ulcers/ rectal polyps start PPI-Protonix 40 mg po daily COPD 02 requiring - in remission DuoNeb's- write for nebules Continue home oxygen Continue home Symbicort s/p Left hip arthroplasty 02/20 PT daily Percocet prn for pain OP ff up - Dr. Nichole- she calls for appt PT eval and treat- up and ambulate with a leg bag- per patient she has walker and cane at home CM consult for DC planning= home today with home health PT/Nursing FF up with PCP- [facility] clinic FF up with gi in 4 weeks FF up with urology for urodynmaic studies Elian Han MD Apr 07, 2017 07:44
[2017-04-07] MEDS ORDERED: Ipratropium Bromide NEB ×2 (07:55)
[2017-04-07] MEDS ORDERED: HYDR-3516 PO (07:55)
[2017-04-07] MEDS ORDERED: LEVA500T33 PO (07:55)
[2017-04-07] MEDS ORDERED: VITA500012 PO (07:55)
[2017-04-07] MEDS ORDERED: PANT40TA3 PO (07:55)
[2017-04-07 08:00] VITALS: BP 136/78; PULSE 106; RESP 18; TEMP 99.2; O2SAT 96
--- NOTE | 2017-04-07 08:03 | HHI.DS ---
Discharge Summary Admission Date Apr 01, 2017 at 19:46 Discharge Date: Apr 07, 2017 Admitting Diagnosis sepsis, UTI, renal insufficiency Procedures 04/06- EGD- gastric ulcers colonosocopy- rectal polyp Brief History - From Admission 61-year-old female with a past medical history significant for COPD on 2 L nasal cannula at home presents to the emergency department complaining of severe abdominal pain and urinary retention. The patient was discharged from the hospital on 02/18/17 after closed reduction of left hip dislocation under anesthesia. Her hospital course was complicated by urinary retention and she was discharged to home with a Perez catheter with instructions to follow-up as an outpatient with urology in 2 weeks for repeat voiding trial. The patient has been unable to be seen by urology but does have an appointment in the future. She reports she has had the same catheter in since discharge from the hospital. Yesterday, her catheter fell out. She has been having some overflow urinary incontinence but inability to void. She reports the abdominal pain woke her at 3:00 this morning and she came to the emergency department for further evaluation. She denies any fever/chills. No shortness of breath or chest pain. CBC/BMP: 04/03/17 0426 04/04/17 0702 Significant Findings Laboratory Tests Test 04/06/17 16:10 Imaging Last Impressions Abdomen X-Ray 04/04/17 0800 Signed Impressions: Service Date/Time: Tuesday, April 04, 2017 08:38 - CONCLUSION: Air distended large and small bowel without evidence of bowel obstruction. Radha Cabrera MD Renal Ultrasound 04/01/17 0000 Signed Impressions: Service Date/Time: Saturday, April 01, 2017 23:30 - CONCLUSION: 1. Mild dilation of the renal sinus on the right side suggesting mild hydronephrosis. 2. No evidence of hydronephrosis on the left with normal prominence of the extrarenal pelvis. 3. Prominent distention of the gallbladder. Henry Quinteros MD PE at Discharge anicteric sclerae no nuchal rigidity regular rhythm abdomen soft, tympanitic, good bowel sounds perez catheter in place- draining extremities no edema, no calf tenderness, moves all extremities spontaneously neuro exam non focal Pt update on day of discharge awake and alert, oriented x 3 lungs- no wheezes perez in place no melena or hematochezia tolerating po well Pt Condition on Discharge: Stable Discharge Disposition: Disch w/ Home Health Serv Discharge Time: > 30 minutes Discharge Instructions DIET: Follow Instructions for: As Tolerated, No Restrictions Speech Therapy-Diet Recommends: Regular Activities you can perform: Weight Bearing as Simba Follow up Referrals: Gastroenterology - 6 Weeks with Soumya PCP Follow-up - 3-5 Days with Mera you Urology - 3-5 Days with Stacia New Medications: Ergocalciferol (Ergocalciferol) 50,000 Unit Cap 20570 UNITS PO Q7D for bone for 30 Days, CAP Levofloxacin (Levaquin) 500 Mg Tablet 500 MG PO DAILY for Infection for 7 Days, #7 TAB Pantoprazole (Pantoprazole) 40 Mg Tab 40 MG PO DAILY for PUD for 30 Days, #30 TAB 3 Refills [Ipratropium [place]] () 0.5 MG/2.5 ML NEBU 0.5 MG NEB Q4HR NEB for resspfai for 30 Days, #60 ML Changed Medications: Hydrocodone-Acetaminophen (Hydrocodone-Acetaminophen) 5-325 mg Tab 1 TAB PO Q6 PRN for PAIN, #30 TAB 0 Refills (Changed from: 1-2 TAB; Q4H) [Ipratropium [place]] () 0.5 MG/2.5 ML NEBU 0.5 MG NEB Q2HR NEB PRN for wheezing, #1 BOX (Changed from: [Ipratropium Neb] ( Atrovent Neb) 0.5 MG/2.5 ML NEBU 0.5 Mg NEB Q2HR NEB PRN wheezing #1 BOX) Continued Medications: Albuterol 18 GM Inh (Ventolin Hfa 18 GM Inh) 90 Mcg/Act Aer 2 PUFF INH Q4-6H PRN for SHORTNESS OF BREATH, #1 INHALER [address] (Aspirin Adult Low Strength) 81 Mg Tabdr 81 MG PO DAILY for Blood Clot Prevention, TAB Budesonide-Formoterol Inh (Symbicort Inh) 160-4.5 Mcg/Act Aero 1 PUFF INH Q12HR, #1 INHALER 0 Refills Ipratropium-Albuterol Neb (Duoneb) 0.5-2.5 Mg/3 Ml Neb 3 ML NEB Q2HR PRN for SHORTNESS OF BREATH, #1 BOX 0 Refills Multiple Vitamins W/ Minerals (Thera M Plus) 1 Tab 1 TAB PO BID for Nutritional Supplement, #30 TAB Polyethylene Glycol 3350 Powder (Miralax Powder) 17 Gm Powd 17 GM PO DAILY PRN for CONSTIPATION, #1 CAN 0 Refills Mix and dissolve one measuring capful (17 grams) in water or juice. Tamsulosin (Flomax) 0.4 Mg Cap 0.4 MG PO DAILY, #30 CAP Zolpidem (Ambien) 5 Mg Tab 5 MG PO HS PRN for SLEEP, #30 TAB Elain Han MD Apr 07, 2017 08:03
[2017-04-07 08:06] VITALS: O2SAT 94
[2017-04-07] MEDS: ASPIRIN EC 81 MG TABEC PO SCH (08:14)
[2017-04-07] MEDS: PANTOPRAZOLE SOD 40 MG DELAYED RELEASE TAB PO SCH (08:14)
[2017-04-07] MEDS: TAMSULOSIN HCL 0.4 MG CAP PO SCH (08:14)
[2017-04-07] MEDS: guaiFENesin E.R. 600 MG TAB PO SCH (08:14)
[2017-04-07] MEDS: TOLTERODINE TARTRATE 2 MG CAP LA PO SCH (08:14)
[2017-04-07] MEDS: BUDESONIDE-FORMOTEROL 160/4.5 MCG INHALER INH SCH (08:18)
[2017-04-07] MEDS: SODIUM CHLOR 0.9% 1000 ML INJ 1,000 ML IV SCH (08:18)
[2017-04-07] MEDS: SODIUM CHLORIDE 0.9% FLUSH 10 ML FLUSH IV FLUSH SCH (08:18)
[2017-04-07] MEDS ORDERED: LEVOFLOXACIN 500 MG TAB PO SCH (09:00)
[2017-04-07 10:41] VITALS: BP 99/6; PULSE 114; RESP 18; TEMP 98.5; O2SAT 95
== END 2017-04-07 11:55 | disposition home health service (06) | DRG 698 ==
LOC: NEPC 17:19 → NEDA 19:46 → N06A 20:50
PROVIDERS: ADMIT Internal Medicine; ATTEND Internal Medicine
PROC: 0D5P8ZZ Destruction of Rectum, Via Natural or Artificial Opening Endoscopic (ICD-10-PCS; 2017-04-06)
PROC: 0DB48ZX Excision of Esophagogastric Junction, Via Natural or Artificial Opening Endoscopic, Diagnostic (ICD-10-PCS; principal; 2017-04-06 09:20)
PROC: 0DB68ZX Excision of Stomach, Via Natural or Artificial Opening Endoscopic, Diagnostic (ICD-10-PCS; 2017-04-06 09:20)
DX: T83.511A Infection and inflammatory reaction due to indwelling urethral catheter, initial encounter (principal); A41.9 Sepsis, unspecified organism; N17.9 Acute kidney failure, unspecified; I95.9 Hypotension, unspecified; Z99.81 Dependence on supplemental oxygen; D62 Acute posthemorrhagic anemia; N31.9 Neuromuscular dysfunction of bladder, unspecified; K25.9 Gastric ulcer, unspecified as acute or chronic, without hemorrhage or perforation; R33.8 Other retention of urine; N39.0 Urinary tract infection, site not specified; J44.9 Chronic obstructive pulmonary disease, unspecified; K20.9 Esophagitis, unspecified; K62.1 Rectal polyp; K64.9 Unspecified hemorrhoids; R13.10 Dysphagia, unspecified; I10 Essential (primary) hypertension; F17.210 Nicotine dependence, cigarettes, uncomplicated; K59.09 Other constipation; Z96.642 Presence of left artificial hip joint; G43.909 Migraine, unspecified, not intractable, without status migrainosus
CPT/HCPCS: 74019; 76775; 80048; 80053; 80069; 80307; 81001; 82306; 82941; 83605; 83690; 83970; 85025; 85610; 85730; 87040; 87086; 87205; 88305; 88312; 94640; 94664; 96365; J0696; J1644; J2270; J2405; J2543; J7030; J7120; J7644

== ENCOUNTER 2017-05-10 13:22 | Inpatient (IN) | payer MEDICAID ==
[~2017-05-10] VITALS: Ht 162.6 cm; Wt 62.6 kg
[2017-05-10] VITALS (8 sets, daily range): BP systolic 82–106; BP diastolic 47–68; PULSE 104–134; RESP 16–20; TEMP 98–98.6; O2SAT 77–97
[~2017-05-10 13:22] MED LIST changes: +LEVA500T33 PO; -LEVO750T3 PO; +PANT40TA3 PO; -PRED10 PO; +VITA500012 PO
[2017-05-10] MEDS ORDERED: VANCOMYCIN INJ 1,000 MG in SODIUM CHLOR 0.9% 250 ML INJ 250 ML IV STA (15:03)
[2017-05-10] MEDS ORDERED: PIPERACIL-TAZO 4.5 GM PREMIX 100 ML IV STA (15:03)
--- NOTE | 2017-05-10 15:36 | PD ---
HPI Chief Complaint: Skin Problem Time Seen by Provider: 14:57 Travel History International Travel<30 days: No Contact w/Intl Traveler<30days: No Traveled to known affect area: No History of Present Illness HPI Patient has a very segmented history, she is not able to fully put a picture together as per what is bringing her to the emergency department today. Finally after much deliberation and history taking the patient finally stated that the reason she is here is because of a sore that she has on her buttock. She has just noticed this sore over the last day or 2 that because its become painful. Patient stated that she does not have a primary care physician, and that she had a home health nurse, and remove her Aguilera, and that since then she has had problems emptying her bladder. She just all of a sudden gushes out she states, she gets no warning no pain or urgency, just suddenly urinates on herself. This is a condition that she has had for quite a while now and the only time that she was well was when she had a Aguilera placed. Again she states that she does not have a primary care physician and so she has not had ability to discuss this with anyone else on an outpatient basis Patient according to chart review has a past medical history of migraine COPD laparoscopy abdominal surgery tubal ligation and hysterectomy apparently she has had some urethral strictures and has required urethral dilations. Patient' s last surgery was a left hip surgery due to a fall. PFSH Past Medical History Arthritis: Yes (RIGHT KNEE) Asthma: No Autoimmune Disease: No Blood Disorders: No Anxiety: No Depression: No Heart Rhythm Problems: No Cancer: No Cardiovascular Problems: Yes (HYPOTENSION) High Cholesterol: No Chemotherapy: No Chest Pain: No Congestive Heart Failure: No COPD: Yes Cerebrovascular Accident: No Coronary Artery Disease: No Diabetes: No Diminished Hearing: No Endocrine: No Gastrointestinal Disorders: Yes GERD: No Glaucoma: No Genitourinary: Yes (BLADDER RETENTION ) Headaches: No Hepatitis: No Hiatal Hernia: No Hypertension: No Immune Disorder: No Implanted Vascular Access Dvce: Yes Kidney Stones: No Musculoskeletal: Yes (lt hip orif) Neurologic: Yes Psychiatric: No Reproductive: No Respiratory: Yes Migraines: Yes Myocardial Infarction: No Pneumonia: Yes Radiation Therapy: No Renal Failure: No Seizures: No Sickle Cell Disease: No Sleep Apnea: No Thyroid Disease: No Ulcer: No Influenza Vaccination: No ?: Not Menopausal: Yes : 1 Para: 1 Tubal Ligation: Yes Past Surgical History Abdominal Surgery: Yes (LAPOROSCOPY) AICD: No Arteriovenous Shunt: No Cardiac Surgery: No Ear Surgery: No Endocrine Surgery: No Eye Surgery: No Genitourinary Surgery: Yes (BLADDER STRETCHED X2) Insulin Pump: No Joint Replacement: Yes (LEFT HIP SURGERY) Oral Surgery: No Pacemaker: No Thoracic Surgery: No Other Surgery: Yes Social History Alcohol Use: No Tobacco Use: Yes Substance Use: No Allergies-Medications (Allergen,Severity, Reaction): Coded Allergies: No Known Allergies (Verified Allergy, Unknown, 05/10/17) Reported Meds & Prescriptions Reported Meds & Active Scripts Active Ergocalciferol 50,000 Unit Cap 50,000 Units PO Q7D 30 Days Pantoprazole (Pantoprazole Sodium) 40 Mg Tab 40 Mg PO DAILY 30 Days [Ipratropium [place]] 0.5 MG/2.5 ML Nebu 0.5 Mg NEB Q4HR NEB 30 Days Levaquin (Levofloxacin) 500 Mg Tablet 500 Mg PO DAILY 7 Days Hydrocodone-Acetaminophen 5-325 mg Tab 1 Tab PO Q6 PRN [Ipratropium [place]] 0.5 MG/2.5 ML Nebu 0.5 Mg NEB Q2HR NEB PRN Duoneb (Ipratropium-Albuterol Neb) 0.5-2.5 Mg/3 Ml Neb 3 Ml NEB Q2HR PRN Flomax (Tamsulosin HCl) 0.4 Mg Cap 0.4 Mg PO DAILY Ventolin Hfa 18 GM Inh (Albuterol Sulfate) 90 Mcg/Act Aer 2 Puff INH Q4-6H PRN Thera M Plus (Multivitamins/Minerals Therapeutic) 1 Tab 1 Tab PO BID Ambien (Zolpidem Tartrate) 5 Mg Tab 5 Mg PO HS PRN Oxygen (O2) Device Liter CEFERINO.CANULA CONTINUOUS Oxygen Concentrator Portable Gaseous 2 L/min via Nasal Canula Continuous For 99 months Reported Miralax Powder (Polyethylene Glycol 3350 Powder) 17 Gm Powd 17 Gm PO DAILY PRN Mix and dissolve one measuring capful (17 grams) in water or juice. Symbicort Inh (Budesonide/Formoterol Fumarate) 160-4.5 Mcg/Act Aero 1 Puff INH Q12HR Aspirin Adult Low Strength (Aspirin) 81 Mg Tabdr 81 Mg PO DAILY Physical Exam Narrative GENERAL: Thin elderly white female laying on her right lateral decubitus SKIN: Warm and dry. There is a circular 4 cm ulceration stage III with surrounding erythema consistent with cellulitis without streaking or lymphadenopathy. HEAD: Atraumatic. Normocephalic. EYES: Pupils equal and round. No scleral icterus. No injection or drainage. ENT: No nasal bleeding or discharge. Mucous membranes pink and moist. NECK: Trachea midline. No JVD. CARDIOVASCULAR: Regular rate and rhythm. RESPIRATORY: No accessory muscle use. Clear to auscultation. Breath sounds equal bilaterally. GASTROINTESTINAL: Abdomen soft, non-tender, nondistended. Hepatic and splenic margins not palpable. MUSCULOSKELETAL: Extremities without clubbing, cyanosis, or edema. No obvious deformities. NEUROLOGICAL: Awake and alert. No obvious cranial nerve deficits. Motor grossly within normal limits. Five out of 5 muscle strength in the arms and legs. Normal speech. PSYCHIATRIC: Appropriate mood and affect; insight and judgment normal. Data Data Last Documented VS Vital Signs Date Time Temp Pulse Resp B/P (MAP) Pulse Ox O2 Delivery O2 Flow Rate FiO2 05/10/17 16:03 105 85/50 (62) 92 Nasal Cannula 2.00 05/10/17 13:32 98.1 16 Orders Orders Sepsis Workup Initiated (05/10/17 ) Complete Blood Count With Diff (05/10/17 15:03) Comprehensive Metabolic Panel (05/10/17 15:03) Lactic Acid Sepsis Protocol (05/10/17 15:03) Urinalysis - C+S If Indicated (05/10/17 15:03) Blood Culture (05/10/17 15:03) Wound Culture And Gram Stain (05/10/17 15:03) Chest, Single Ap (05/10/17 15:03) Blood Glucose (05/10/17 15:03) Ecg Monitoring (05/10/17 15:03) Iv Access Insert/Monitor (05/10/17 15:03) Oximetry (05/10/17 15:03) Urinary Catheter Insert/Apply (05/10/17 15:03) Piperacil-Tazo 4.5 Gm Premix (Zosyn 4.5 (05/10/17 15:03) Vancomycin Inj (Vancomycin Inj) (05/10/17 15:03) Urine Culture (05/10/17 16:00) Labs Laboratory Tests Test 05/10/17 15:31 05/10/17 15:36 05/10/17 16:00 White Blood Count 16.8 TH/MM3 Red Blood Count 4.16 MIL/MM3 Hemoglobin 12.2 GM/DL Hematocrit 37.2 % Mean Corpuscular Volume 89.4 FL Mean Corpuscular Hemoglobin 29.3 PG Mean Corpuscular Hemoglobin Concent 32.7 % Red Cell Distribution Width 14.8 % Platelet Count 434 TH/MM3 Mean Platelet Volume 7.8 FL Neutrophils (%) (Auto) 87.1 % Lymphocytes (%) (Auto) 6.9 % Monocytes (%) (Auto) 3.8 % Eosinophils (%) (Auto) 0.9 % Basophils (%) (Auto) 1.3 % Neutrophils # (Auto) 14.6 TH/MM3 Lymphocytes # (Auto) 1.2 TH/MM3 Monocytes # (Auto) 0.6 TH/MM3 Eosinophils # (Auto) 0.2 TH/MM3 Basophils # (Auto) 0.2 TH/MM3 CBC Comment AUTO DIFF Differential Comment AUTO DIFF CONFIRMED Blood Urea Nitrogen 24 MG/DL Creatinine 0.66 MG/DL Random Glucose 110 MG/DL Total Protein 7.8 GM/DL Albumin 3.1 GM/DL Calcium Level 9.1 MG/DL Alkaline Phosphatase 88 U/L Aspartate Amino Transf (AST/SGOT) 17 U/L Alanine Aminotransferase (ALT/SGPT) 15 U/L Total Bilirubin 0.1 MG/DL Sodium Level 134 MEQ/L Potassium Level 4.2 MEQ/L Chloride Level 94 MEQ/L Carbon Dioxide Level 36.8 MEQ/L Anion Gap 3 MEQ/L Estimat Glomerular Filtration Rate 91 ML/MIN Lactic Acid Level 1.3 mmol/L Urine Color YELLOW Urine Turbidity CLOUDY Urine pH 5.0 Urine Specific [place] 1.025 Urine Protein 30 mg/dL Urine Glucose (UA) NEG mg/dL Urine Ketones NEG mg/dL Urine Occult Blood LARGE Urine Nitrite POS Urine Bilirubin NEG Urine Urobilinogen 0.2 MG/DL Urine Leukocyte Esterase MOD Urine RBC 15-19 /hpf Urine WBC INNUM /hpf Urine Squamous Epithelial Cells 0-5 /hpf Urine Bacteria MANY /hpf Microscopic Urinalysis Comment CATH-CULTURE IND MDM Medical Decision Making Medical Screen Exam Complete: Yes Emergency Medical Condition: Yes Medical Record Reviewed: Yes Differential Diagnosis sepsis versus infected decubitus ulcer versus UTI versus pneumonia Narrative Course CBC shows a leukocytosis of 16.8 thousand with a left shift of 87%, no anemia, normal platelet count. Urinalysis collected with cath is consistent with a UTI Complete metabolic profile shows borderline electrolytes in particular bicarb is abnormally high of 36.8 most likely compensation for COPD. GFR been within normal limits, normal bilirubin normal LFTs normal alk phos and normal lactic acid. Diagnosis Primary Impression: Decubitus ulcer, stage 3 with infection Additional Impression: UTI Admitting Information Admitting Physician Requests: Observation Santi Qureshi MD May 10, 2017 15:36
[2017-05-10 15:53] LABS: AUTOMATED NEUTROPHIL # 14.6 TH/MM3 (1.8-7.7); BASOPHIL # 0.2 TH/MM3 (0-0.2); BASOPHIL % 1.3 % (0.0-2.0); EOSINOPHIL # 0.2 TH/MM3 (0-0.4); EOSINOPHIL % 0.9 % (0.0-4.0); HEMATOCRIT 37.2 % (35.0-46.0); HEMOGLOBIN 12.2 GM/DL (11.6-15.3); LYMPH % 6.9 % (9.0-44.0); LYMPHOCYTE # 1.2 TH/MM3 (1.0-4.8); MEAN CELL VOLUME 89.4 FL (80.0-100.0); MEAN CORPUSCULAR HEMOGLOBIN 29.3 PG (27.0-34.0); MEAN CORPUSCULAR HGB CONC 32.7 % (32.0-36.0); MEAN PLATELET VOLUME 7.8 FL (7.0-11.0); MONO % 3.8 % (0.0-8.0); MONOCYTE # 0.6 TH/MM3 (0-0.9); NEUT % 87.1 % (16.0-70.0); PLATELET COUNT 434 TH/MM3 (150-450); RED BLOOD COUNT 4.16 MIL/MM3 (4.00-5.30); RED CELL DISTRIBUTION WIDTH 14.8 % (11.6-17.2); WHITE BLOOD COUNT 16.8 TH/MM3 (4.0-11.0)
[2017-05-10 16:02] LABS: CHLORIDE 94 MEQ/L (98-107); SODIUM (NA) 134 MEQ/L (136-145)
[2017-05-10 16:05] LABS: ALBUMIN 3.1 GM/DL (3.4-5.0); BICARBONATE 36.8 MEQ/L (21.0-32.0); CALCIUM 9.1 MG/DL (8.5-10.1)
[2017-05-10 16:06] LABS: BLOOD UREA NITROGEN 24 MG/DL (7-18); GLUCOSE,RANDOM 110 MG/DL (74-106)
[2017-05-10 16:08] LABS: ALT (GPT) 15 U/L (10-53); AST (GOT) 17 U/L (15-37)
[2017-05-10 16:09] LABS: CREATININE 0.66 MG/DL (0.50-1.00); GLOMERULAR FILTRATION RATE 91 ML/MIN (>89)
[2017-05-10 16:10] LABS: TOTAL BILIRUBIN ADULT 0.1 MG/DL (0.2-1.0); TOTAL PROTEIN 7.8 GM/DL (6.4-8.2)
[2017-05-10 16:11] LABS: ALKALINE PHOSPHATASE 88 U/L (45-117)
[2017-05-10 16:24] LABS: BILIRUBIN, URINE NEG (NEG); BLOOD, URINE LARGE (NEG); GLUCOSE,URINE NEG (NEG); KETONE, URINE NEG (NEG); NITRITE,URINE POS (NEG); URINE COLOR YELLOW (YELLW/STRAW); URINE LEUKOCYTE ESTERASE MOD (NEG)
[2017-05-10 16:43] LABS: RBC, URINE 15-19 /hpf (0-3); WBC, URINE INNUM /hpf (0-5)
[2017-05-10 16:44] LABS: BACTERIA, URINE MANY /hpf; SQUAMOUS EPITHELIAL CELL URINE 0-5 /hpf (0-5)
--- NOTE | 2017-05-10 17:23 | RADRPT ---
EXAM DATE/TIME: 05/10/2017 16:49 [facility] COMPARISON: CHEST SINGLE AP, February 21, 2017, 4:47. INDICATIONS : Short of breath, cough MEDICAL HISTORY : Chronic obstructive pulmonary disease. Emphysema. SURGICAL HISTORY : None. ENCOUNTER: Initial ACUITY: 1 day PAIN SCORE: 0/10 LOCATION: Bilateral chest FINDINGS: Cardiomegaly and mild interstitial prominence. No consolidation or effusion. There is linear scarring at the bases. CONCLUSION: No acute disease. Mateo Bray MD on May 10, 2017 at 17:20 Board Certified Radiologist. This report was verified electronically.
[2017-05-10] MEDS ORDERED: NALOXONE HCL 0.4 MG/ML AMP IV PUSH PRN (17:30)
[2017-05-10] MEDS ORDERED: Vancomycin Consult Pharmacy 1 EA OTHER SCH (17:30)
[2017-05-10] MEDS ORDERED: ACETAMINOPHEN 325 MG TAB PO PRN (17:30)
[2017-05-10] MEDS ORDERED: SODIUM CHLORIDE 0.9% FLUSH 10 ML FLUSH IV FLUSH PRN (17:30)
[2017-05-10] MEDS ORDERED: ONDANSETRON HCL 4 MG/2 ML VIAL IVP PRN (17:30)
[2017-05-10] MEDS: ACETAMINOPHEN/HYDROcodone 325 MG/7.5 MG TAB PO PRN (19:26)
[2017-05-10] MEDS ORDERED: SENNOSIDES 8.6 MG TAB PO PRN (21:00)
[2017-05-10] MEDS: ZOLPIDEM TARTRATE 5 MG TAB PO PRN (21:29)
[2017-05-10] MEDS: SODIUM CHLORIDE 0.9% FLUSH 10 ML FLUSH IV FLUSH SCH (21:30)
[2017-05-11] VITALS (8 sets, daily range): BP systolic 83–101; BP diastolic 55–58; PULSE 91–110; RESP 14–18; TEMP 98–99.5; O2SAT 94–97
[2017-05-11] MEDS: PIPERACIL-TAZO 4.5 GM PREMIX 100 ML IV SCH ×3 (00:45→16:23)
[2017-05-11] MEDS: ACETAMINOPHEN/HYDROcodone 325 MG/7.5 MG TAB PO PRN ×4 (01:10→19:21)
[2017-05-11 06:32] LABS: AUTOMATED NEUTROPHIL # 6.1 TH/MM3 (1.8-7.7); BASOPHIL # 0.1 TH/MM3 (0-0.2); BASOPHIL % 1.1 % (0.0-2.0); EOSINOPHIL # 0.4 TH/MM3 (0-0.4); EOSINOPHIL % 4.5 % (0.0-4.0); HEMATOCRIT 33.1 % (35.0-46.0); HEMOGLOBIN 10.3 GM/DL (11.6-15.3); LYMPH % 18.3 % (9.0-44.0); LYMPHOCYTE # 1.6 TH/MM3 (1.0-4.8); MEAN CORPUSCULAR HEMOGLOBIN 28.1 PG (27.0-34.0); MEAN CORPUSCULAR HGB CONC 31.2 % (32.0-36.0); MEAN PLATELET VOLUME 7.9 FL (7.0-11.0); MONO % 6.9 % (0.0-8.0); MONOCYTE # 0.6 TH/MM3 (0-0.9); NEUT % 69.2 % (16.0-70.0); PLATELET COUNT 369 TH/MM3 (150-450); RED BLOOD COUNT 3.68 MIL/MM3 (4.00-5.30); RED CELL DISTRIBUTION WIDTH 14.4 % (11.6-17.2); WHITE BLOOD COUNT 8.8 TH/MM3 (4.0-11.0)
[2017-05-11 06:44] LABS: CALCIUM 8.5 MG/DL (8.5-10.1)
[2017-05-11 06:45] LABS: BICARBONATE 37.8 MEQ/L (21.0-32.0)
[2017-05-11 06:48] LABS: CREATININE 0.52 MG/DL (0.50-1.00)
[2017-05-11] MEDS: RESP: ALBUTEROL 2.5 MG/IPRATROPIUM 0.5 MG NEB (PRN) NEB ×3 (07:30→17:54)
[2017-05-11] MEDS: TAMSULOSIN HCL 0.4 MG CAP PO SCH (09:19)
[2017-05-11] MEDS: VANCOMYCIN INJ 1,000 MG in SODIUM CHLOR 0.9% 250 ML INJ 250 ML IV SCH ×2 (09:20→20:34)
[2017-05-11] MEDS: SODIUM CHLORIDE 0.9% FLUSH 10 ML FLUSH IV FLUSH SCH ×2 (09:20→20:34)
--- NOTE | 2017-05-11 09:35 | PD.WCN.NOT ---
Wound Consult Description: Received consult from Doctor Graf regarding wound management of sacrum Communicated with: RUI Duque and call placed to listed attending physician Doctor Blum Recommendation: 1.Please cleanse wound with normal saline and pat dry. 2.Apply Santyl ointment to wound bed only 3. Pack wound loosely with maxorb II (calcium alginate) just to wound bed 4.Cover with bordered gauze and change dressing daily. 5. Please obtain [place] [facility] bed or if not available please order K4 bed from [facility]. 6. Turn patient every 2 hours and PRN for comfort and offloading of pressure from magnus prominences. 7. Please do not use thick cloth pads for incontinence management, please use ultrasorb pads for incontinence management. Plastics consult for possible debridement is recommended Additional Information: Patient seen on 3rd floor [facility] for wound management of sacrum. Observed patient positioned to R side upon entering patient's room. Removed adhesive foam dressing to reveal stage 4 pressure injury to R side of sacrum and R buttock. Wound measures 6 cm x 4.5cm x ~0.7cm. Wound bed presents with ~40% adipose,~10% facia, ~20% yellow slough and ~20% pink tissue. Wound was cleansed with normal saline and patted dry. Periwound presents with slight erythema, without induration. Loosely packed/ covered wound with Maxorb II (calcium alginate) dressing. Secured dressing with adhesive foam dressing. Skin prep was applied to periwound and intact skin before applying secondary dressing. Removed thick cloth underpad and replaced with Ultrasorb pad. Marva Harden [facility] May 11, 2017 09:35
[2017-05-11] MEDS ORDERED: KETOROLAC TROMETHAMINE 60 MG/2 ML (IM) VIAL IM PRN (10:30)
[2017-05-11] MEDS ORDERED: MORPHINE SULFATE 2 MG/ML INJ IV PUSH ONE (10:30)
[2017-05-11] MEDS ORDERED: KETOROLAC TROMETHAMINE 30 MG/ML (IVP) VIAL IV PUSH ONE ×2 (10:45)
--- NOTE | 2017-05-11 12:57 | HHI.HP ---
[facility] Service [facility] Primary Care Physician No Primary Care Physician Admission Diagnosis INFECTED DECUB ULCER,UTI Diagnoses: Chief Complaint: Sacral pain Travel History International Travel<30 Days: No Contact w/Intl Traveler <30 Da: No Traveled to Known Affected Are: No History of Present Illness This patient is a 61-year-old female with a history of COPD who comes in with about a month or so of increased pain on her right buttocks. Several months ago she had a left hip replacement has been poorly ambulatory. She had a catheter postoperatively and then it was removed. She notes problems with urinary incontinence and fecal incontinence and has been home unable to care for herself well. The stage IV ulcer which appears to be infected with surrounding erythema and tenderness. Patient been admitted to the hospital for this. Pain has been severe and improved pain medication Review of Systems Constitutional: DENIES: Diaphoretic episodes, Fatigue, Fever, Weight gain, Weight loss, Chills, Dizziness, Change in appetite, Night Sweats Endocrine: DENIES: Abnorml menstrual pattern, Heat/cold intolerance, Polydipsia , Polyuria, Polyphagia Eyes: DENIES: Blurred vision, Diplopia, Eye inflammation, Eye pain, Vision loss , Photosensitivity, Double Vision Ears, nose, mouth, throat: DENIES: Tinnitus, Hearing loss, Vertigo, Nasal discharge, Oral lesions, Throat pain, Hoarseness, Ear Pain, Running Nose, Epistaxis, Sinus Pain, Toothache, Odynophagia Respiratory: DENIES: Apneas, Cough, Snoring, Wheezing, Hemoptysis, Sputum production, Shortness of breath Cardiovascular: DENIES: Chest pain, Palpitations, Syncope, Dyspnea on Exertion , PND, Lower Extremity Edema, Orthopnea, Claudication Gastrointestinal: DENIES: Abdominal pain, Black stools, Bloody stools, Constipation, Diarrhea, Nausea, Vomiting, Difficulty Swallowing, Anorexia Genitourinary: DENIES: Abnormal vaginal bleeding, Dysmenorrhea, Dyspareunia, Sexual dysfunction, Urinary frequency, Urinary incontinence, Urgency, Hematuria , Dysuria, Nocturia, Vaginal discharge Musculoskeletal: COMPLAINS OF: Joint pain, Back pain, DENIES: Muscle aches, Stiffness, Joint Swelling, Neck pain Integumentary: DENIES: Abnormal pigmentation, Pruritus, Rash, Nail changes, Breast masses, Breast skin changes, Nipple discharge Hematologic/lymphatic: DENIES: Bruising, Lymphadenopathy Immunologic/allergic: DENIES: Eczema, Urticaria Neurologic: DENIES: Abnormal gait, Headache, Localized weakness, Paresthesias, Seizures, Speech Problems, Tremor, Poor Balance Psychiatric: DENIES: Anxiety, Confusion, Mood changes, Depression, Hallucinations, Agitation, Suicidal Ideation, Homicidal Ideation, Delusions Except as stated in HPI: all other systems reviewed are Neg Past Family Social History Past Medical History COPD Arthritis Urinary incontinence Past Surgical History Left hip replacement, bladder surgery Reported Medications Reviewed in the EMR Allergies: Coded Allergies: No Known Allergies (Verified Allergy, Unknown, 05/10/17) Active Ordered Medications Reviewed in the EMR Family History Patient does not recall at this time (she is in pain and does not want to talk about it) Social History Quit patient smokes occasionally, no alcohol dependency, lives with family Physical Exam Vital Signs Vital Signs Date Time Temp Pulse Resp B/P (MAP) Pulse Ox O2 Delivery O2 Flow Rate FiO2 05/11/17 12:00 99.5 100 14 87/57 (67) 95 05/11/17 10:00 105 18 88/55 (66) 05/11/17 08:00 99.5 105 05/11/17 07:47 18 05/11/17 07:34 94 Nasal Cannula 1.50 05/11/17 00:00 98.0 110 18 101/55 (70) 97 05/10/17 20:32 97 Nasal Cannula 2.00 05/10/17 20:00 98.0 110 18 90/47 (61) 97 05/10/17 18:30 98.3 104 20 106/68 (81) 96 05/10/17 18:25 05/10/17 17:52 97 Nasal Cannula 2.00 05/10/17 17:37 98.6 104 18 82/50 (61) 97 Nasal Cannula 2.00 05/10/17 16:03 105 85/50 (62) 92 Nasal Cannula 2.00 05/10/17 16:00 92 Nasal Cannula 2.00 05/10/17 15:59 78 Nasal Cannula 2.00 05/10/17 13:32 98.1 134 16 95/60 (72) 77 Physical Exam GENERAL: This is a frail elderly female complaining of right hip and buttocks pain SKIN: Large stage IV right-sided sacral decubiti, otherwise no rashes, ecchymoses or lesions. Cool and dry. HEAD: Atraumatic. Normocephalic. No temporal or scalp tenderness. EYES: Pupils equal round and reactive. Extraocular motions intact. No scleral icterus. No injection or drainage. ENT: Nose without bleeding, purulent drainage or septal hematoma. Throat without erythema, tonsillar hypertrophy or exudate. Uvula midline. Airway patent. NECK: Trachea midline. No JVD or lymphadenopathy. Supple, nontender, no meningeal signs. CARDIOVASCULAR: Regular rate and rhythm without murmurs, gallops, or rubs. RESPIRATORY: Clear to auscultation. Breath sounds equal bilaterally. No wheezes , rales, or rhonchi. GASTROINTESTINAL: Abdomen soft, non-tender, nondistended. No hepato-splenomegaly , or palpable masses. No guarding. MUSCULOSKELETAL: Extremities without clubbing, cyanosis, or edema. No joint tenderness, effusion, or edema noted. No calf tenderness. Negative Homans sign bilaterally. NEUROLOGICAL: Awake and alert. Cranial nerves II through XII intact. Motor and sensory grossly within normal limits. Five out of 5 muscle strength in all muscle groups. Normal speech. Laboratory Laboratory Tests Test 05/10/17 15:31 05/10/17 15:36 05/10/17 16:00 05/11/17 04:45 White Blood Count 16.8 8.8 Red Blood Count 4.16 3.68 Hemoglobin 12.2 10.3 Hematocrit 37.2 33.1 Mean Corpuscular Volume 89.4 90.0 Mean Corpuscular Hemoglobin 29.3 28.1 Mean Corpuscular Hemoglobin Concent 32.7 31.2 Red Cell Distribution Width 14.8 14.4 Platelet Count 434 369 Mean Platelet Volume 7.8 7.9 Neutrophils (%) (Auto) 87.1 69.2 Lymphocytes (%) (Auto) 6.9 18.3 Monocytes (%) (Auto) 3.8 6.9 Eosinophils (%) (Auto) 0.9 4.5 Basophils (%) (Auto) 1.3 1.1 Neutrophils # (Auto) 14.6 6.1 Lymphocytes # (Auto) 1.2 1.6 Monocytes # (Auto) 0.6 0.6 Eosinophils # (Auto) 0.2 0.4 Basophils # (Auto) 0.2 0.1 CBC Comment AUTO DIFF DIFF FINAL Differential Comment AUTO DIFF CONFIRMED Blood Urea Nitrogen 24 19 Creatinine 0.66 0.52 Random Glucose 110 76 Total Protein 7.8 Albumin 3.1 Calcium Level 9.1 8.5 Alkaline Phosphatase 88 Aspartate Amino Transf (AST/SGOT) 17 Alanine Aminotransferase (ALT/SGPT) 15 Total Bilirubin 0.1 Sodium Level 134 136 Potassium Level 4.2 4.0 Chloride Level 94 97 Carbon Dioxide Level 36.8 37.8 Anion Gap 3 1 Estimat Glomerular Filtration Rate 91 119 Lactic Acid Level 1.3 Urine Color YELLOW Urine Turbidity CLOUDY Urine pH 5.0 Urine Specific Tal[place]ott 1.025 Urine Protein 30 Urine Glucose (UA) NEG Urine Ketones NEG Urine Occult Blood LARGE Urine Nitrite POS Urine Bilirubin NEG Urine Urobilinogen 0.2 Urine Leukocyte Esterase MOD Urine RBC 15-19 Urine WBC INNUM Urine Squamous Epithelial Cells 0-5 Urine Bacteria MANY Microscopic Urinalysis Comment CATH-CULTURE IND Date/Time Source Procedure Growth Status 05/10/17 15:36 Blood Peripheral Aerobic Blood Culture - Preliminary NO GROWTH IN 1 DAY Resulted 05/10/17 15:36 Blood Peripheral Anaerobic Blood Culture - Preliminary NO GROWTH IN 1 DAY Resulted 05/10/17 16:00 Urine Catheterized Urine Urine Culture Pending Received 05/10/17 15:36 Wound Buttock Gram Stain - Final Resulted 05/10/17 15:36 Wound Buttock Wound Culture Pending Resulted Result Diagram: 05/11/17 0445 05/11/17 0445 Imaging Last Impressions Chest X-Ray 05/10/17 1503 Signed Impressions: Service Date/Time: Wednesday, May 10, 2017 16:49 - CONCLUSION: No acute disease. Mateo Bray MD Septic Shock Reassessment Septic shock perfusion: reassessment completed Caprini VTE Risk Assessment Caprini VTE Risk Assessment: Mod/High Risk (score >= 2) Caprini Risk Assessment Model Point Value = 1 Point Value = 2 Point Value = 3 Point Value = 5 Age 41-60 Minor surgery BMI > 25 kg/m2 Swollen legs Varicose veins or History of unexplained or recurrent spontaneous Oral contraceptives or hormone replacement Sepsis (< 1 month) Serious lung disease, including pneumonia (< 1 month) Abnormal pulmonary function Acute myocardial infarction Congestive heart failure (< 1 month) History of inflammatory bowel disease Medical patient at bed rest Age 61-74 Arthroscopic surgery Major open surgery (> 45 min) Laparoscopic surgery (> 45 min) Malignancy Confined to bed (> 72 hours) Immobilizing plaster cast Central venous access Age >= 75 History of VTE Family history of VTE Factor V Leiden Prothrombin [id number] Lupus anticoagulant Anticardiolipin antibodies Elevated serum homocysteine Heparin-induced thrombocytopenia Other congenital or acquired thrombophilia Stroke (< 1 month) Elective arthroplasty Hip, pelvis, or leg fracture Acute spinal cord injury (< 1 month) Prophylaxis Regimen Total Risk Factor Score Risk Level Prophylaxis Regimen 0-1 Low Early ambulation 2 Moderate Order ONE of the following: *Sequential Compression Device (SCD) *Heparin 5000 units SQ BID 3-4 Higher Order ONE of the following medications: *Heparin 5000 units SQ TID *Enoxaparin/Lovenox 40 mg SQ daily (WT < 150 kg, CrCl > 30 mL/min) *Enoxaparin/Lovenox 30 mg SQ daily (WT < 150 kg, CrCl > 10-29 mL/min) *Enoxaparin/Lovenox 30 mg SQ BID (WT < 150 kg, CrCl > 30 mL/min) AND/OR *Sequential Compression Device (SCD) 5 or more Highest Order ONE of the following medications: *Heparin 5000 units SQ TID (Preferred with Epidurals) *Enoxaparin/Lovenox 40 mg SQ daily (WT < 150 kg, CrCl > 30 mL/min) *Enoxaparin/Lovenox 30 mg SQ daily (WT < 150 kg, CrCl > 10-29 mL/min) *Enoxaparin/Lovenox 30 mg SQ BID (WT < 150 kg, CrCl > 30 mL/min) AND *Sequential Compression Device (SCD) Assessment and Plan Problem List: (1) Decubitus ulcer, stage 3 with infection ICD Code: L89.93 - Pressure ulcer of unspecified site, stage 3; L08.9 - Local infection of the skin and subcutaneous tissue, unspecified Status: Acute Plan: Patient with stage IV decubiti. Will need current a IV vancomycin and Zosyn ics to continue, and follow-up with plastic surgery and infectious disease , and wound care (2) COPD (chronic obstructive pulmonary disease) ICD Code: J44.9 - Chronic obstructive pulmonary disease, unspecified Status: Acute Plan: On home O2, continue bronchodilators as needed, no evidence of acute exacerbation at this time Code Status Full code Discussed Condition With Patient, ER MD Physician Certification 2 Midnight Certification Type: Admission for Inpatient Services Order for Inpatient Services The services are ordered in accordance with Medicare regulations or non- Medicare payer requirements, as applicable. In the case of services not specified as inpatient-only, they are appropriately provided as inpatient services in accordance with the 2-midnight benchmark. Estimated LOS (days): 4 4 days is the estimated time the patient will need to remain in the hospital, assuming treatment plan goals are met and no additional complications. Post-Hospital Plan: [facility] Kylah Graf MD May 11, 2017 12:56
[2017-05-11] MEDS ORDERED: ERGOCALCIFEROL (VIT D2) 50,000 UNIT CAP PO SCH (14:00)
--- NOTE | 2017-05-11 20:19 | HHI.PR ---
Addendum to Inpatient Note Additional Information seen today around 7 pm full note to follow Lupe Solis MD May 11, 2017 20:19
--- NOTE | 2017-05-11 20:20 | PD.ID.CON ---
History of Present Illness Service ID Consult Requested By Dr Graf Reason for Consult infected decub Primary Care Physician No Primary Care Physician Diagnoses: History of Present Illness his patient is a 61-year-old female with a history of COPD who comes in with about a month or so of increased pain on her right buttocks. Sp recent left hip replacement has been poorly ambulatory. She had a catheter postoperatively and then it was removed. She notes problems with urinary incontinence and fecal incontinence and has been home unable to care for herself well. The stage IV ulcer which appears to be infected with surrounding erythema and tenderness. Culture buttock: njegaitie Urine cl with > 100K EBC, growing enterococcus Review of Systems Except as stated in HPI: all other systems reviewed are Neg Past Family Social History Allergies: Coded Allergies: No Known Allergies (Verified Allergy, Unknown, 05/10/17) Past Medical History COPD Arthritis Urinary incontinence Past Surgical History Left hip replacement, bladder surgery Active Ordered Medications Medications where reviewed in EMR Antibiotics Include: vancomycin zosyn Family History reviewed non contributory to current ID problem Social History Quit patient smokes occasionally, no alcohol dependency, lives with family Physical Exam Vital Signs Vital Signs Date Time Temp Pulse Resp B/P (MAP) Pulse Ox O2 Delivery O2 Flow Rate FiO2 05/11/17 20:00 98.0 104 17 95/55 (68) 96 05/11/17 18:01 96 Nasal Cannula 2.00 05/11/17 16:00 98.4 91 14 83/58 (66) 95 05/11/17 13:46 18 05/11/17 12:00 99.5 100 14 87/57 (67) 95 05/11/17 10:00 105 18 88/55 (66) 05/11/17 08:00 99.5 105 05/11/17 07:34 94 Nasal Cannula 1.50 05/11/17 00:00 98.0 110 18 101/55 (70) 97 05/10/17 20:32 97 Nasal Cannula 2.00 Physical Exam CONSTITUTIONAL/GENERAL: This is an elderly fraile, undernourished patient, in no apparent distress. TUBES/LINES/DRAINS: SKIN: No jaundice, rashes, or lesions. Ecchymoses on upper extremities. No wounds seen anteriorly. Skin temperature appropriate. Not diaphoretic. small fairly clean stage IV coccyx decub with serosang d/c HEAD: Atraumatic. Normocephalic. EYES: Pupils equal and round and reactive. Extraocular motions intact. No scleral icterus. No injection or drainage. Fundi not examined. ENT: Hearing grossly normal. Nose without bleeding or purulent drainage. Throat without visible erythema, exudates, masses, or lesions. poor dentition NECK: Trachea midline. Supple, nontender. No palpable thyroid enlargement or nodularity. CARDIOVASCULAR: Regular rate and rhythm without murmurs, gallops, or rubs. No JVD. Peripheral pulses symmetric. RESPIRATORY/CHEST: Symmetric, unlabored respirations. Clear to auscultation. Breath sounds equal bilaterally. No wheezes, rales, or rhonchi. GASTROINTESTINAL: Abdomen soft, non-tender, nondistended. No hepato-splenomegaly , or palpable masses. No guarding. Bowel sounds present. GENITOURINARY: Without palpable bladder distension. Aguilera catheter in place with clear yellow urine MUSCULOSKELETAL: Extremities without clubbing, cyanosis, or edema. No joint tenderness or effusion noted. No calf tenderness. No mottling or clubbing. LYMPHATICS: No palpable cervical or supraclavicular adenopathy. NEUROLOGICAL: Awake and alert. Motor and sensory grossly within normal limits. Follows commands. Cognitively sharp. Moves all extremities. PSYCHIATRIC: No obvious anxiety/depression. no apparent hallucinations or other psychotic thought process. Laboratory Laboratory Tests Test 05/11/17 04:45 White Blood Count 8.8 Red Blood Count 3.68 Hemoglobin 10.3 Hematocrit 33.1 Mean Corpuscular Volume 90.0 Mean Corpuscular Hemoglobin 28.1 Mean Corpuscular Hemoglobin Concent 31.2 Red Cell Distribution Width 14.4 Platelet Count 369 Mean Platelet Volume 7.9 Neutrophils (%) (Auto) 69.2 Lymphocytes (%) (Auto) 18.3 Monocytes (%) (Auto) 6.9 Eosinophils (%) (Auto) 4.5 Basophils (%) (Auto) 1.1 Neutrophils # (Auto) 6.1 Lymphocytes # (Auto) 1.6 Monocytes # (Auto) 0.6 Eosinophils # (Auto) 0.4 Basophils # (Auto) 0.1 CBC Comment DIFF FINAL Differential Comment Blood Urea Nitrogen 19 Creatinine 0.52 Random Glucose 76 Calcium Level 8.5 Sodium Level 136 Potassium Level 4.0 Chloride Level 97 Carbon Dioxide Level 37.8 Anion Gap 1 Estimat Glomerular Filtration Rate 119 Date/Time Source Procedure Growth Status 05/10/17 15:36 Blood Peripheral Aerobic Blood Culture - Preliminary NO GROWTH IN 1 DAY Resulted 05/10/17 15:36 Blood Peripheral Anaerobic Blood Culture - Preliminary NO GROWTH IN 1 DAY Resulted 05/10/17 16:00 Urine Catheterized Urine Urine Culture - Preliminary Group D Enterococcus Resulted 05/10/17 15:36 Wound Buttock Gram Stain - Final Resulted 05/10/17 15:36 Wound Buttock Wound Culture - Preliminary Resulted Result Diagram: 05/11/17 0445 05/11/17 0445 Imaging Last Impressions Chest X-Ray 05/10/17 1503 Signed Impressions: Service Date/Time: Wednesday, May 10, 2017 16:49 - CONCLUSION: No acute disease. Mateo Bray MD Assessment and Plan Assessment and Plan Enterococcal UTI Decub ? infected - cont cutnet abx transition oo [facility] prior to d/c Lupe Solis MD May 11, 2017 20:20
[2017-05-12] VITALS (8 sets, daily range): BP systolic 88–100; BP diastolic 53–68; PULSE 57–99; RESP 18–20; TEMP 96.1–98.3; O2SAT 94–98
[2017-05-12] MEDS: PIPERACIL-TAZO 4.5 GM PREMIX 100 ML IV SCH ×4 (00:52→23:46)
[2017-05-12] MEDS: ZOLPIDEM TARTRATE 5 MG TAB PO PRN ×2 (00:57→20:52)
[2017-05-12] MEDS: ACETAMINOPHEN/HYDROcodone 325 MG/7.5 MG TAB PO PRN ×4 (02:09→23:46)
[2017-05-12] MEDS: RESP: ALBUTEROL 2.5 MG/IPRATROPIUM 0.5 MG NEB (PRN) NEB ×4 (02:18→22:52)
[2017-05-12] MEDS: ERGOCALCIFEROL (VIT D2) 50,000 UNIT CAP PO SCH (08:37)
[2017-05-12] MEDS: TAMSULOSIN HCL 0.4 MG CAP PO SCH (08:37)
[2017-05-12] MEDS: SODIUM CHLORIDE 0.9% FLUSH 10 ML FLUSH IV FLUSH SCH ×2 (08:39→20:58)
[2017-05-12] MEDS: VANCOMYCIN INJ 1,000 MG in SODIUM CHLOR 0.9% 250 ML INJ 250 ML IV SCH ×2 (09:19→20:52)
[2017-05-12] MEDS ORDERED: ACETAMINOPHEN 500 MG CPLT PO PRN (10:30)
[2017-05-12] MEDS: ACETAMINOPHEN 500 MG CPLT PO SCH ×3 (10:30→17:30)
[2017-05-12] MEDS: SODIUM CHLOR 0.9% 1000 ML INJ 1,000 ML IV SCH ×3 (10:39→23:47)
--- NOTE | 2017-05-12 11:55 | HHI.PR ---
Subjective Remarks This patient is a 61-year-old female who is seen today in follow-up for right sided sacral wound stage IV. Patient has chronic hypotension. She says her pain is 10 out of 10. She has chronic hypotension. Despite therapy with current regimen and her pain preventing her from being and Lipitor or cooperating with physical therapy. This point patient will need adequate pain control Objective Vitals Vital Signs Date Time Temp Pulse Resp B/P (MAP) Pulse Ox O2 Delivery O2 Flow Rate FiO2 05/12/17 08:00 96.1 57 18 88/54 (65) 96 05/12/17 07:33 94 Nasal Cannula 2.00 05/12/17 00:00 97.9 99 18 92/61 (71) 98 05/11/17 20:00 98.0 104 17 95/55 (68) 96 05/11/17 20:00 96 Nasal Cannula 2.00 05/11/17 18:01 96 Nasal Cannula 2.00 05/11/17 16:00 98.4 91 14 83/58 (66) 95 05/11/17 13:46 18 05/11/17 12:00 99.5 100 14 87/57 (67) 95 I/O 05/11/17 05/11/17 05/11/17 05/12/17 05/12/17 05/12/17 07:00 15:00 23:00 07:00 15:00 23:00 Intake Total 468 ml 770 ml 100 ml Output Total 400 ml 225 ml 250 ml Balance -400 ml 468 ml 545 ml -150 ml Intake Oral 118 ml 420 ml IV Total 350 ml 350 ml 100 ml Output Urine Total 400 ml 225 ml 250 ml # Bowel Movements 0 Result Diagram: 05/11/17 0445 05/11/17 0445 Imaging Last Impressions Chest X-Ray 05/10/17 1503 Signed Impressions: Service Date/Time: Wednesday, May 10, 2017 16:49 - CONCLUSION: No acute disease. Mateo Bray MD Objective Remarks GENERAL: This is a elderly frail female who appears older than stated age. She has increased AP chest diameter and right sacral decubiti CARDIOVASCULAR: Regular rate and rhythm without murmurs, gallops, or rubs. RESPIRATORY: Clear to auscultation. Breath sounds equal bilaterally. No wheezes , rales, or rhonchi. GASTROINTESTINAL: Abdomen soft, non-tender, nondistended. Normal active bowel sounds MUSCULOSKELETAL: Extremities without clubbing, cyanosis, or edema. NEURO: Alert & Oriented x4 to person, place, time, situation. Moves all ext x4 Aguilera insert reason: Stage III/IV Press Ulcer Date of Insertion: May 10, 2017 A/P Problem List: (1) Decubitus ulcer, stage 3 with infection ICD Code: L89.93 - Pressure ulcer of unspecified site, stage 3; L08.9 - Local infection of the skin and subcutaneous tissue, unspecified Status: Acute Plan: Patient with stage IV decubiti. Will need current a IV vancomycin and Zosyn antibiotics to continue, and follow-up with plastic surgery and infectious disease, and wound care (2) COPD (chronic obstructive pulmonary disease) ICD Code: J44.9 - Chronic obstructive pulmonary disease, unspecified Status: Acute Plan: On home O2, continue bronchodilators as needed, no evidence of acute exacerbation at this time (3) Sepsis secondary to UTI Plan: Enterococcal UTI, continue with vancomycin and Zosyn Sepsis present on admission ID consult appreciated Kylah Graf MD May 12, 2017 11:55
[2017-05-12] MEDS ORDERED: BISACODYL EC 5 MG TABEC PO ONE (12:00)
[2017-05-12] MEDS ORDERED: HYDROmorphone HCL 2 MG TAB PO ONE (12:00)
[2017-05-12] MEDS ORDERED: PHARMACY ORDERED LAB ONE (20:45)
[2017-05-13] VITALS (7 sets, daily range): BP systolic 102–122; BP diastolic 58–82; PULSE 84–98; RESP 20; TEMP 96.9–98.2; O2SAT 94–100
[2017-05-13] MEDS: SODIUM CHLOR 0.9% 1000 ML INJ 1,000 ML IV SCH ×3 (02:30→17:28)
[2017-05-13] MEDS: RESP: ALBUTEROL 2.5 MG/IPRATROPIUM 0.5 MG NEB (PRN) NEB ×4 (04:13→20:21)
[2017-05-13] MEDS: ACETAMINOPHEN/HYDROcodone 325 MG/7.5 MG TAB PO PRN (05:34)
[2017-05-13 07:16] LABS: CREATININE 0.5 MG/DL (0.50-1.00)
--- NOTE | 2017-05-13 08:21 | HHI.IDPN ---
Subjective Subjective Remarks Pain in sacral area No fevers Antibiotics Vancomycin and Zosyn Lines Peripheral Past Medical History COPD Arthritis Urinary incontinence Past Surgical History Left hip replacement, bladder surgery Allergies: Coded Allergies: No Known Allergies (Verified Allergy, Unknown, 05/10/17) Review of Systems Constitutional Constitutional Remarks No fevers Objective . Vital Signs Date Time Temp Pulse Resp B/P (MAP) Pulse Ox O2 Delivery O2 Flow Rate FiO2 05/13/17 00:00 97.9 92 20 115/63 (80) 94 05/12/17 22:52 96 Nasal Cannula 2.00 05/12/17 20:15 Nasal Cannula 2.00 05/12/17 20:00 98.3 89 20 91/55 (67) 97 Manual Cuff/Auscultation 05/12/17 16:00 98.2 80 18 100/60 (73) 96 05/12/17 12:34 98/68 (78) 05/12/17 12:00 98.2 96 18 92/53 (66) 96 . Laboratory Tests Test 05/13/17 05:15 Creatinine 0.50 MG/DL Estimat Glomerular Filtration Rate 125 ML/MIN Microbiology Date/Time Source Procedure Growth Status 05/10/17 15:36 Blood Peripheral Aerobic Blood Culture - Preliminary NO GROWTH IN 2 DAYS Resulted 05/10/17 15:36 Blood Peripheral Anaerobic Blood Culture - Preliminary NO GROWTH IN 2 DAYS Resulted 05/10/17 15:31 Blood Peripheral Aerobic Blood Culture - Preliminary NO GROWTH IN 2 DAYS Resulted 05/10/17 15:31 Blood Peripheral Anaerobic Blood Culture - Preliminary NO GROWTH IN 2 DAYS Resulted 05/10/17 16:00 Urine Catheterized Urine Urine Culture - Preliminary Enterococcus Faecalis Staph Sp Coagulase Negative Resulted 05/10/17 15:36 Wound Buttock Gram Stain - Final Complete 05/10/17 15:36 Wound Culture - Final Nandini Albicans Complete Physical Exam GENERAL: This is a elderly frail female who appears older than stated age. Skin : Sacral decubitus= Stage 3/4- No foul smell . Some surrounding erythema CARDIOVASCULAR: Regular rate and rhythm without murmurs, gallops, or rubs. RESPIRATORY: Clear to auscultation. Breath sounds equal bilaterally. No wheezes , rales, or rhonchi. GASTROINTESTINAL: Abdomen soft, non-tender, nondistended. Normal active bowel sounds MUSCULOSKELETAL: Extremities without clubbing, cyanosis, or edema. NEURO: Alert & Oriented x4 to person, place, time, situation. Moves all ext x4 Assessment & Plan Diagnosis: (1) Decubitus ulcer, stage 3 with infection ICD Codes: L89.93 - Pressure ulcer of unspecified site, stage 3; L08.9 - Local infection of the skin and subcutaneous tissue, unspecified Status: Acute Plan: Continue the IV Vancomycin and Zosyn for now Add Fluconazole 200 mg po daily Check 3 phase bone scan to check for osteomyelitis (2) Sepsis secondary to UTI ICD Codes: A41.9 - Sepsis, unspecified organism; N39.0 - Urinary tract infection, site not specified Plan: Re check UAC to see if clearing (3) Impaired mobility and activities of daily living ICD Codes: Z74.09 - Other reduced mobility Status: Acute Mee Le MD May 13, 2017 08:21
[2017-05-13] MEDS: SODIUM CHLORIDE 0.9% FLUSH 10 ML FLUSH IV FLUSH SCH ×2 (09:16→21:43)
[2017-05-13] MEDS: FLUCONAZOLE 200 MG TAB PO SCH (09:16)
[2017-05-13] MEDS: TAMSULOSIN HCL 0.4 MG CAP PO SCH (09:16)
[2017-05-13] MEDS: ACETAMINOPHEN 500 MG CPLT PO SCH (09:16)
[2017-05-13] MEDS: PIPERACIL-TAZO 4.5 GM PREMIX 100 ML IV SCH ×2 (09:16→15:54)
[2017-05-13] MEDS: VANCOMYCIN INJ 1,000 MG in SODIUM CHLOR 0.9% 250 ML INJ 250 ML IV SCH ×2 (09:44→21:42)
[2017-05-13 09:56] LABS: BILIRUBIN, URINE NEG (NEG); BLOOD, URINE MOD (NEG); GLUCOSE,URINE NEG (NEG); KETONE, URINE NEG (NEG); NITRITE,URINE NEG (NEG); URINE COLOR YELLOW (YELLW/STRAW); URINE LEUKOCYTE ESTERASE SMALL (NEG)
[2017-05-13 10:02] LABS: WBC, URINE 15-19 /hpf (0-5)
[2017-05-13] MEDS ORDERED: ACETAMINOPHEN/HYDROcodone 325 MG/7.5 MG TAB PO SCH ×2 (12:45→14:00)
--- NOTE | 2017-05-13 15:15 | RADRPT ---
EXAM DATE/TIME: 05/13/2017 09:45 This report includes an Addendum and supersedes previous reports for this exam. [facility] COMPARISON: No previous studies available for comparison. PRIOR BONE SCANS: No correlative bone scan available for comparison. INDICATIONS : Right side decubitus ulcer. DOSE: 32.8 mCi Tc99m MDP IV TECHNIQUE: Three phase bone scan of the Pelvis was performed. MEDICAL HISTORY : Chronic obstructive pulmonary disease. Smoker. SURGICAL HISTORY : Tubal ligation. Hysterectomy. Lt hip 01/23. ENCOUNTER: Initial ACUITY: 3 days PAIN SCALE: 5/10 LOCATION: Right pelvis FINDINGS: There is focal uptake in the right eighth rib and the left ninth and 10th rib. Minimal uptake is pre sent in the sacrum. SPECT images are pending. CONCLUSION: Uptake as above. SPECT images are pending. Rodrigo Hernandez MD FACR on May 13, 2017 at 14:41 Board Certified Radiologist. This report was verified electronically. ADDENDUM: Patient refused SPECT imaging. Jerel Sanchez MD on May 14, 2017 at 13:48 Board Certified Radiologist. This report was verified electronically.
--- NOTE | 2017-05-13 15:25 | HHI.PR ---
Subjective Remarks Patient feels better with current pain control Oxygenation stable Ambulation improved with pain control and with physical therapy Objective Vitals Vital Signs Date Time Temp Pulse Resp B/P (MAP) Pulse Ox O2 Delivery O2 Flow Rate FiO2 05/13/17 11:44 96.9 93 20 122/82 (95) 100 05/13/17 11:26 97 Nasal Cannula 2.00 05/13/17 07:50 97.8 84 20 115/65 (82) 99 05/13/17 00:00 97.9 92 20 115/63 (80) 94 05/12/17 22:52 96 Nasal Cannula 2.00 05/12/17 20:15 Nasal Cannula 2.00 05/12/17 20:00 98.3 89 20 91/55 (67) 97 Manual Cuff/Auscultation 05/12/17 16:00 98.2 80 18 100/60 (73) 96 I/O 05/12/17 05/12/17 05/12/17 05/13/17 05/13/17 05/13/17 07:00 15:00 23:00 07:00 15:00 23:00 Intake Total 100 ml 350 ml 993 ml 1470 ml Output Total 250 ml 1300 ml Balance -150 ml 350 ml 993 ml 170 ml Intake Oral 120 ml IV Total 100 ml 350 ml 993 ml 1350 ml Output Urine Total 250 ml 1300 ml # Bowel Movements 0 Result Diagram: 05/11/17 0445 05/13/17 0515 Objective Remarks GENERAL: This is a elderly frail female who appears older than stated age. She has increased AP chest diameter and right sacral decubiti CARDIOVASCULAR: Regular rate and rhythm without murmurs, gallops, or rubs. RESPIRATORY: Clear to auscultation. Breath sounds equal bilaterally. No wheezes , rales, or rhonchi. GASTROINTESTINAL: Abdomen soft, non-tender, nondistended. Normal active bowel sounds MUSCULOSKELETAL: Extremities without clubbing, cyanosis, or edema. NEURO: Alert & Oriented x4 to person, place, time, situation. Moves all ext x4 Date of Insertion: May 10, 2017 A/P Problem List: (1) Decubitus ulcer, stage 3 with infection ICD Code: L89.93 - Pressure ulcer of unspecified site, stage 3; L08.9 - Local infection of the skin and subcutaneous tissue, unspecified Status: Acute Plan: Patient with stage IV decubiti. Will need current a IV vancomycin, diflucan and Zosyn antibiotics to continue, and follow-up with infectious disease, and wound care Spoke with plastics today, Dr Lauren Bone scan pending (2) COPD (chronic obstructive pulmonary disease) ICD Code: J44.9 - Chronic obstructive pulmonary disease, unspecified Status: Acute Plan: On home O2, continue bronchodilators as needed, no evidence of acute exacerbation at this time (3) Sepsis secondary to UTI Plan: Enterococcal UTI, continue with vancomycin and Zosyn Sepsis present on admission ID consult appreciated Kylah Graf MD May 13, 2017 15:24
[2017-05-13] MEDS: MORPHINE SULFATE 15 MG TAB PO PRN ×2 (15:54→22:19)
--- NOTE | 2017-05-13 18:05 | MB ---
cc: Kassie Lauren MD DATE OF CONSULT: Patient is being seen at the request of Dr. Kylah Graf. REASON FOR CONSULTATION: Infected decubitus ulcer. HISTORY OF PRESENT ILLNESS: Patient is a 61-year-old female who was admitted on 05/10/2017. The patient came in with a history of a month or so of increased pain in the right buttock. The patient notes that she had a left hip replacement in January and had difficulty ambulating. This apparently has led to her developing a sacral ulcer. She also has problem with urinary incontinence and fecal incontinence. Since the patient has been admitted, she has been on wound care, which was recommended on 05/11/2017, by Marva Harden. Consultation is requested regarding evaluation and treatment of this patient. LABORATORY DATA: Her white count on admission was 16.8 and on 05/11/2017, was 8.8 with a relatively normal shift. On 05/11/2017, laboratory data shows a fasting sugar of 76, sodium of 136, potassium 4.0, chloride 97 with a CO2 of 37.8. Urine cath showed that the culture was indicated as there was yeast, moderate amount of leukocyte esterase, large amount of occult blood and significant amount of protein. REVIEW OF SYSTEMS: Positive for joint pain and back pain, but otherwise is negative for 14 systems. PAST MEDICAL HISTORY: Significant for COPD, arthritis, urinary incontinence. PAST SURGICAL HISTORY: Includes a left hip replacement as well as bladder surgery. MEDICATIONS: Listed on her chart. ALLERGIES: SHE HAS NO KNOWN FOOD OR DRUG ALLERGIES. FAMILY HISTORY: Noncontributory. SOCIAL HISTORY: The patient smokes occasionally. Denies alcohol dependency. PHYSICAL EXAMINATION: GENERAL: The patient is lying comfortably in bed. She is able to turn on her side and apparently is ambulatory. VITAL SIGNS: Temperature is 97.9, pulse 92, respirations 20, blood pressure is 118/74, pulse oxymetry is 99 on nasal cannula of 2 L/minute. HEENT: Her extraocular muscles are intact. The pupils are equal, round and reactive to light. Her mouth is clear. NECK: Supple without masses. LUNGS: Clear. HEART: Has a regular rate and rhythm. BACK: Reveals a 6.5 x 4 cm granulating wound in the area of the sacrum. The area surrounding it approximately 3-4 cm radially from the edge of the wound is red, excoriated with small areas of skin loss. This appears to be well demarcated and does not appear to be an infection but more of a sensitivity and a reaction to the local moisture. The wound itself is mostly granulated, approximately 50%, with some areas of slough and it only goes approximately 0.7 cm deep. IMPRESSION: The patient has a pressure ulcer. PLAN: Local care will be ordered. This will include daily dressing changes twice a day as needed with irrigation of Dakin solution, zinc oxide to the surrounding tissue and Dakins wet-to-dry for the wound itself. I anticipate that this wound will continue to improve and not require any surgical intervention. MD KATI Fair/SB , 05:25 PM , 06:04 PM
[2017-05-13] MEDS: MORPHINE SULFATE 15 MG CONTROLLED RELEASE TAB PO SCH (21:44)
[2017-05-13] MEDS: SODIUM HYPOCHLORITE 0.25% 500 ML BTL TOPICAL SCH (21:45)
[2017-05-13] MEDS: ZINC OXIDE 40% OINT 60 GM TUBE TOPICAL SCH (21:45)
[2017-05-14] VITALS (8 sets, daily range): BP systolic 90–115; BP diastolic 52–67; PULSE 92–109; RESP 20; TEMP 97.6–98.3; O2SAT 95–100
[2017-05-14] MEDS: PIPERACIL-TAZO 4.5 GM PREMIX 100 ML IV SCH ×3 (00:29→17:11)
[2017-05-14] MEDS: SODIUM CHLOR 0.9% 1000 ML INJ 1,000 ML IV SCH ×3 (00:29→18:26)
[2017-05-14] MEDS: RESP: ALBUTEROL 2.5 MG/IPRATROPIUM 0.5 MG NEB (PRN) NEB ×2 (01:54→07:42)
[2017-05-14] MEDS: MORPHINE SULFATE 15 MG TAB PO PRN ×3 (04:40→17:11)
[2017-05-14] MEDS: RESP: ALBUTEROL 2.5 MG/IPRATROPIUM 0.5 MG NEB (SCH) NEB ×3 (08:00→19:44)
[2017-05-14] MEDS: MORPHINE SULFATE 15 MG CONTROLLED RELEASE TAB PO SCH ×2 (08:28→21:22)
[2017-05-14] MEDS: FLUCONAZOLE 200 MG TAB PO SCH (08:28)
[2017-05-14] MEDS: TAMSULOSIN HCL 0.4 MG CAP PO SCH (08:28)
[2017-05-14] MEDS: SODIUM CHLORIDE 0.9% FLUSH 10 ML FLUSH IV FLUSH SCH ×2 (08:28→21:00)
[2017-05-14] MEDS: VANCOMYCIN INJ 1,000 MG in SODIUM CHLOR 0.9% 250 ML INJ 250 ML IV SCH ×2 (08:29→21:21)
[2017-05-14] MEDS: ZINC OXIDE 40% OINT 60 GM TUBE TOPICAL SCH (08:29)
[2017-05-14] MEDS: SODIUM HYPOCHLORITE 0.25% 500 ML BTL TOPICAL SCH (08:30)
[2017-05-14] MEDS ORDERED: MORP1TAB24 PO (11:18)
[2017-05-14] MEDS ORDERED: SENN187 PO (11:18)
[2017-05-14] MEDS ORDERED: DAKINSHST TOPICAL (11:18)
[2017-05-14] MEDS ORDERED: MSIR15 PO (11:18)
[2017-05-14] MEDS ORDERED: Zinc Oxide 40% Oint TOPICAL (11:18)
--- NOTE | 2017-05-14 11:20 | HHI.PR ---
Subjective Remarks This patient is a 61-year-old female with significant pain related to joint issues. She has a right buttock ulcer stage IV. Patient has been seen by plastics and recommendations are for continued medical management and wound care. Patient pain is better controlled today. She has had good bowel movements. She is more amatory. Discharge plans were discussed with the patient however we are pending her nuclear bone scan. She was unable to complete this yesterday and we may need to either repeat this or follow up on alternative imaging. Case discussed at length with the radiology team. Objective Vitals Vital Signs Date Time Temp Pulse Resp B/P (MAP) Pulse Ox O2 Delivery O2 Flow Rate FiO2 05/14/17 07:42 99 Nasal Cannula 2.50 05/14/17 07:30 98.3 109 20 115/67 (83) 96 05/14/17 04:00 98.2 103 20 90/60 (70) 97 05/14/17 00:00 98.3 96 20 92/55 (67) 100 05/13/17 20:20 97 Nasal Cannula 2.50 05/13/17 20:00 98.2 98 20 102/58 (73) 98 05/13/17 15:50 97.9 92 20 118/74 (89) 99 05/13/17 11:44 96.9 93 20 122/82 (95) 100 05/13/17 11:26 97 Nasal Cannula 2.00 I/O 05/13/17 05/13/17 05/13/17 05/14/17 05/14/17 05/14/17 06:59 14:59 22:59 06:59 14:59 22:59 Intake Total 1470 ml 1934 ml 1383 ml 250 ml Output Total 1300 ml 1650 ml 1625 ml Balance 170 ml 284 ml -242 ml 250 ml Intake Oral 120 ml 420 ml 600 ml IV Total 1350 ml 1514 ml 783 ml 250 ml Output Urine Total 1300 ml 1650 ml 1625 ml # Bowel Movements 0 2 0 Result Diagram: 05/11/17 0445 05/13/17 0515 Objective Remarks GENERAL: This is a elderly frail female who appears older than stated age. She has increased AP chest diameter and right sacral decubiti CARDIOVASCULAR: Regular rate and rhythm without murmurs, gallops, or rubs. RESPIRATORY: Clear to auscultation. Breath sounds equal bilaterally. No wheezes , rales, or rhonchi. GASTROINTESTINAL: Abdomen soft, non-tender, nondistended. Normal active bowel sounds MUSCULOSKELETAL: Extremities without clubbing, cyanosis, or edema. NEURO: Alert & Oriented x4 to person, place, time, situation. Moves all ext x4 Date of Insertion: May 10, 2017 A/P Problem List: (1) Decubitus ulcer, stage 3 with infection ICD Code: L89.93 - Pressure ulcer of unspecified site, stage 3; L08.9 - Local infection of the skin and subcutaneous tissue, unspecified Status: Acute Plan: Patient with stage IV decubitus. Will need current a IV vancomycin, diflucan and Zosyn antibiotics to continue, and follow-up with infectious disease, and wound care plastics continue to recommend medical management and local wound care Bone scan SPECT images pending due to patient nonadherence with study. Have discussed with radiology regarding repeat or follow-up imaging (2) COPD (chronic obstructive pulmonary disease) ICD Code: J44.9 - Chronic obstructive pulmonary disease, unspecified Status: Acute Plan: On home O2, continue bronchodilators as needed, no evidence of acute exacerbation at this time (3) Sepsis secondary to UTI Plan: Enterococcal UTI, continue with vancomycin and Zosyn Sepsis present on admission ID consult appreciated DC Aguilera Assessment and Plan Patient will need to have follow-up imaging of her bone scan to rule out osteomyelitis. This will determine antibiotic plans. Patient likely to go home with oral antibiotics if there is no osteomyelitis. She will need wound care which will be taught to her significant other by the nursing team. We may be able to have courtesy home health visits if this can be arranged. Kylah Graf MD May 14, 2017 11:20
[2017-05-14] MEDS ORDERED: LORazepam 2 MG/ML VIAL IV PUSH ONE (14:15)
[2017-05-14] MEDS ORDERED: GADODIAMIDE PF 287 MG/ML 10 ML VIAL (for RAD MRI) IVCONTRAST ONE (15:44)
--- NOTE | 2017-05-14 16:45 | RADRPT ---
EXAM DATE/TIME: 05/14/2017 15:25 [facility] COMPARISON: BONE SCAN THREE PHASE, May 13, 2017, 9:45. INDICATIONS : Osteomyelitis. Stage IV right sided decubitus ulcer. CONTRAST: 10 cc Omniscan (gadodiamide) IV MEDICAL HISTORY : None. SURGICAL HISTORY : Hysterectomy. Left hip replacement. ENCOUNTER: Subsequent ACUITY: 2 weeks PAIN SCORE: 6/10 LOCATION: [place]. TECHNIQUE: Multiplanar, multisequence magnetic resonance imaging of the pelvis was performed. FINDINGS: On today's examination there is normal signal throughout the bony structures of the pelvis. There is a left hip prosthesis in place. There is no evidence of bone marrow edema especially along the right posterior iliac wing or sacrum to suggest osteomyelitis. There is diffuse nonspecific edema throughou t the subcutaneous soft tissues of the right buttocks suggestive of cellulitis. This appears to be lo cation of patient's decubitus ulcer. No loculated fluid collections are seen within the subcutaneous soft tissues of the right buttocks. However, there is a well-defined focal small fluid collection in the soft tissues of the left proximal measuring 4.5 x 2.1 x 2.1 cm. No surrounding inflammatory mack es are seen. The bowel gas pattern the pelvis appears to be within normal limits. CONCLUSION: 1. Nonspecific edema in the subcutaneous soft tissues of the right buttocks suggestive of cellulitis. No focal or loculated fluid collections are seen in the right buttocks. 2. No evidence of abnormal bone marrow edema to suggest osteomyelitis. 3. Small focal nonspecific fluid collection in the left buttocks measuring 4.5 x 2.1 cm. No surroundi ng inflammatory changes are seen. This maybe a small postsurgical seroma since this appears to be julieta r the location of patient's left hip prosthesis. Recommend correlation with patient's physical and cl inical exam at this location. Jerel Sanchez MD on May 14, 2017 at 16:37 Board Certified Radiologist. This report was verified electronically.
--- NOTE | 2017-05-14 16:56 | HHI.FF ---
Face to Face Verification Diagnosis: (1) Decubitus ulcer, stage 3 with infection Home Health Nursing Order: Medical education Signs/symptoms of disease process Wound care and dressing changes I have seen patient Toyin Nelson on 05/14/17. My clinical findings support the need for the requested home health care services because: Deconditioned w/ increased weakness Limited ability to care for self I certify that my clinical findings support that this patient is homebound because: Unsteady gait/balance 1.Please cleanse wound with normal saline and pat dry. 2.Apply Santyl ointment to wound bed only 3. Pack wound loosely with maxorb II (calcium alginate) just to wound bed 4.Cover with bordered gauze and change dressing daily. 5. Please obtain [facility] Airapy bed or if not available please order K4 bed from [facility]. 6. Turn patient every 2 hours and PRN for comfort and offloading of pressure from magnus prominences. 7. Please do not use thick cloth pads for incontinence management, please use ultrasorb pads for incontinence management. Kylah Graf MD May 14, 2017 16:56
--- NOTE | 2017-05-14 18:35 | HHI.IDPN ---
Subjective Subjective Remarks ID FU DR SUAREZ Pain in sacral area No fevers REPEAT UC NEGATIVE SO FAR Antibiotics Vancomycin and Zosyn Lines Peripheral Past Medical History COPD Arthritis Urinary incontinence Past Surgical History Left hip replacement, bladder surgery Allergies: Coded Allergies: No Known Allergies (Verified Allergy, Unknown, 05/10/17) Objective . Vital Signs Date Time Temp Pulse Resp B/P (MAP) Pulse Ox O2 Delivery O2 Flow Rate FiO2 05/14/17 11:50 98.0 95 20 97/52 (67) 100 05/14/17 07:42 99 Nasal Cannula 2.50 05/14/17 07:30 98.3 109 20 115/67 (83) 96 05/14/17 04:00 98.2 103 20 90/60 (70) 97 05/14/17 00:00 98.3 96 20 92/55 (67) 100 05/13/17 20:20 97 Nasal Cannula 2.50 05/13/17 20:00 98.2 98 20 102/58 (73) 98 05/14/17 05/14/17 05/15/17 15:00 23:00 07:00 Intake Total 250 ml 600 ml Output Total 1350 ml Balance 250 ml -750 ml Intake Oral 600 ml IV Total 250 ml Output Urine Total 1350 ml # Bowel Movements 0 . Laboratory Tests Test 05/13/17 05:15 Creatinine 0.50 MG/DL Estimat Glomerular Filtration Rate 125 ML/MIN Microbiology Date/Time Source Procedure Growth Status 05/13/17 09:15 Urine Clean Catch Urine Culture - Preliminary IMMATURE GROWTH - REINCUBATE Resulted Physical Exam GENERAL: This is a elderly frail female who appears older than stated age. Skin : Sacral decubitus= Stage 3/4- No foul smell . Some surrounding erythema CARDIOVASCULAR: Regular rate and rhythm without murmurs, gallops, or rubs. RESPIRATORY: Clear to auscultation. Breath sounds equal bilaterally. No wheezes , rales, or rhonchi. GASTROINTESTINAL: Abdomen soft, non-tender, nondistended. Normal active bowel sounds MUSCULOSKELETAL: Extremities without clubbing, cyanosis, or edema. NEURO: Alert & Oriented x4 to person, place, time, situation. Moves all ext x4 Assessment & Plan Diagnosis: (1) Sepsis secondary to UTI ICD Codes: A41.9 - Sepsis, unspecified organism; N39.0 - Urinary tract infection, site not specified Plan: FU REPEAT UAC 05/13 (2) Decubitus ulcer, stage 3 with infection ICD Codes: L89.93 - Pressure ulcer of unspecified site, stage 3; L08.9 - Local infection of the skin and subcutaneous tissue, unspecified Status: Acute Plan: ON FLUCONAZOLE WILL FU CONTINUE THE SAME ON VANCO/ ZOSYN WILL FU Conchita Burch May 14, 2017 18:35
[2017-05-15] VITALS (7 sets, daily range): BP systolic 91–106; BP diastolic 53–59; PULSE 89–112; RESP 12–20; TEMP 95.4–98; O2SAT 92–98
[2017-05-15] MEDS: PIPERACIL-TAZO 4.5 GM PREMIX 100 ML IV SCH ×2 (00:25→08:19)
[2017-05-15] MEDS: SODIUM CHLOR 0.9% 1000 ML INJ 1,000 ML IV SCH ×3 (03:10→20:48)
[2017-05-15] MEDS: MORPHINE SULFATE 15 MG TAB PO PRN ×3 (04:43→17:34)
[2017-05-15] MEDS: ZINC OXIDE 40% OINT 60 GM TUBE TOPICAL SCH ×4 (04:46→21:15)
[2017-05-15] MEDS: SODIUM HYPOCHLORITE 0.25% 500 ML BTL TOPICAL SCH ×2 (04:46→09:24)
[2017-05-15] MEDS: RESP: ALBUTEROL 2.5 MG/IPRATROPIUM 0.5 MG NEB (PRN) NEB (05:21)
[2017-05-15 07:02] LABS: CREATININE 0.47 MG/DL (0.50-1.00)
[2017-05-15] MEDS: RESP: ALBUTEROL 2.5 MG/IPRATROPIUM 0.5 MG NEB (SCH) NEB ×3 (07:07→19:48)
[2017-05-15] MEDS: FLUCONAZOLE 200 MG TAB PO SCH (08:22)
[2017-05-15] MEDS: MORPHINE SULFATE 15 MG CONTROLLED RELEASE TAB PO SCH ×2 (08:22→20:49)
[2017-05-15] MEDS: TAMSULOSIN HCL 0.4 MG CAP PO SCH (08:22)
[2017-05-15] MEDS: SODIUM CHLORIDE 0.9% FLUSH 10 ML FLUSH IV FLUSH SCH ×2 (08:23→20:46)
[2017-05-15] MEDS: VANCOMYCIN INJ 1,000 MG in SODIUM CHLOR 0.9% 250 ML INJ 250 ML IV SCH (09:19)
[2017-05-15] MEDS ORDERED: PHENAZOPYRIDINE HCL 100 MG TAB PO ONE (11:30)
[2017-05-15] MEDS: PHENAZOPYRIDINE HCL 100 MG TAB PO SCH ×2 (14:11→20:48)
--- NOTE | 2017-05-15 15:50 | HHI.IDPN ---
Subjective Subjective Remarks Pain is controlled No fever Antibiotics Vancomycin and Zosyn Lines Peripheral Past Medical History COPD Arthritis Urinary incontinence Past Surgical History Left hip replacement, bladder surgery Allergies: Coded Allergies: No Known Allergies (Verified Allergy, Unknown, 05/10/17) Review of Systems Constitutional Constitutional Remarks No fevers Objective . Vital Signs Date Time Temp Pulse Resp B/P (MAP) Pulse Ox O2 Delivery O2 Flow Rate FiO2 05/15/17 12:00 96.9 89 12 105/53 (70) 97 05/15/17 08:00 95.4 112 16 94/55 (68) 95 05/15/17 07:07 92 Nasal Cannula 2.50 05/15/17 00:00 98.0 92 20 106/55 (72) 98 05/14/17 20:00 97.6 102 20 100/54 (69) 100 05/14/17 19:45 95 Nasal Cannula 2.50 05/14/17 15:50 98.0 92 20 95/59 (71) 95 05/15/17 05/15/17 05/16/17 15:00 23:00 07:00 Intake Total 444 ml Balance 444 ml Intake Oral 444 ml Bladder Scan Volume Amount 114 ml . Laboratory Tests Test 05/15/17 05:21 Creatinine 0.47 MG/DL Estimat Glomerular Filtration Rate 134 ML/MIN Microbiology Date/Time Source Procedure Growth Status 05/13/17 09:15 Urine Clean Catch Urine Culture - Preliminary Enterococcus Faecalis Yeast-Id To Follow Resulted Physical Exam GENERAL: This is a elderly frail female who appears older than stated age. Skin : Sacral decubitus= Stage 3/4- No foul smell . Surrounding erythema is improved. Some maceration CARDIOVASCULAR: Regular rate and rhythm without murmurs, gallops, or rubs. RESPIRATORY: Clear to auscultation. Breath sounds equal bilaterally. No wheezes , rales, or rhonchi. GASTROINTESTINAL: Abdomen soft, non-tender, nondistended. Normal active bowel sounds MUSCULOSKELETAL: Extremities without clubbing, cyanosis, or edema. NEURO: Alert & Oriented x4 to person, place, time, situation. Moves all ext x4 Assessment & Plan Diagnosis: (1) Decubitus ulcer, stage 3 with infection ICD Codes: L89.93 - Pressure ulcer of unspecified site, stage 3; L08.9 - Local infection of the skin and subcutaneous tissue, unspecified Status: Acute Plan: Stop the IV Vancomycin and Zosyn Start Unasyn 3 g IV q6hrs Continue Fluconazole 200 mg po daily (2) Sepsis secondary to UTI ICD Codes: A41.9 - Sepsis, unspecified organism; N39.0 - Urinary tract infection, site not specified Plan: Re check UAC to see if clearing (3) Impaired mobility and activities of daily living ICD Codes: Z74.09 - Other reduced mobility Status: Acute Mee Le MD May 15, 2017 15:50
[2017-05-15] MEDS: AMPICILLIN-SULBACTAM INJ 3 GM in SODIUM CHLORIDE 0.9% INJ 100 ML IV SCH ×2 (16:00→20:51)
--- NOTE | 2017-05-15 18:49 | HHI.PR ---
Subjective Remarks Complaint today of dysuria after removal of catheter. Bladder scans show no high-volume. Etiology is likely irritation of the urethra. No other complaints today. Objective Vital Signs Date Time Temp Pulse Resp B/P (MAP) Pulse Ox O2 Delivery O2 Flow Rate FiO2 05/15/17 16:00 96.5 104 16 95/59 (71) 95 05/15/17 12:00 96.9 89 12 105/53 (70) 97 05/15/17 08:00 95.4 112 16 94/55 (68) 95 05/15/17 07:07 92 Nasal Cannula 2.50 05/15/17 00:00 98.0 92 20 106/55 (72) 98 05/14/17 20:00 97.6 102 20 100/54 (69) 100 05/14/17 19:45 95 Nasal Cannula 2.50 I/O 05/14/17 05/14/17 05/14/17 05/15/17 05/15/17 05/15/17 07:00 15:00 23:00 07:00 15:00 23:00 Intake Total 1383 ml 250 ml 1801 ml 1392 ml 444 ml 90 ml Output Total 1625 ml 1350 ml 650 ml 300 ml Balance -242 ml 250 ml 451 ml 742 ml 444 ml -210 ml Intake Oral 600 ml 600 ml 480 ml 444 ml 90 ml IV Total 783 ml 250 ml 1201 ml 912 ml Output Urine Total 1625 ml 1350 ml 650 ml 300 ml Bladder Scan Volume Amount 88 ml 114 ml # Bowel Movements 0 0 0 0 Result Diagram: 05/11/17 0445 05/15/17 0521 Objective Remarks GENERAL: NAD, A&Ox3 HEAD: Normocephalic. NECK: Supple, trachea midline. No lymphadenopathy. EYES: No scleral icterus. No injection or drainage. CARDIOVASCULAR: Regular rate and rhythm without murmurs, gallops, or rubs. RESPIRATORY: Breath sounds equal bilaterally. No accessory muscle use. GASTROINTESTINAL: Abdomen soft, non-tender, nondistended. MUSCULOSKELETAL: No cyanosis, or edema. SKIN: Warm and dry. Decubitus ulcer NEURO: No focal neurological deficitis. A/P Problem List: (1) Decubitus ulcer, stage 3 with infection ICD Code: L89.93 - Pressure ulcer of unspecified site, stage 3; L08.9 - Local infection of the skin and subcutaneous tissue, unspecified Status: Acute (2) COPD (chronic obstructive pulmonary disease) ICD Code: J44.9 - Chronic obstructive pulmonary disease, unspecified Status: Acute (3) Sepsis secondary to UTI (4) Impaired mobility and activities of daily living ICD Code: Z74.09 - Other reduced mobility Status: Acute Assessment and Plan 61-year-old female admitted secondary to infected decubitus ulcer Decubitus ulcer, stage III Decubitus ulcer infection Cellulitis UTI Continue Unasyn Continue fluconazole Vancomycin and Zosyn were discontinued by ID Continue wound care No evidence of osteomyelitis on MRI COPD No active exacerbation Continue oxygen Bronchodilators as needed Sepsis Resolved Charbel Adams MD May 15, 2017 18:49
[2017-05-15] MEDS: SODIUM HYPOCHLORITE 0.125% 500 ML BTL TOPICAL SCH ×2 (21:00→21:15)
[2017-05-16] VITALS (7 sets, daily range): BP systolic 90–135; BP diastolic 52–65; PULSE 92–108; RESP 14–18; TEMP 97.2–98.6; O2SAT 93–99
[2017-05-16] MEDS: MORPHINE SULFATE 15 MG TAB PO PRN ×3 (01:46→22:00)
[2017-05-16] MEDS: SODIUM HYPOCHLORITE 0.125% 500 ML BTL TOPICAL SCH ×2 (02:00→08:14)
[2017-05-16] MEDS: RESP: ALBUTEROL 2.5 MG/IPRATROPIUM 0.5 MG NEB (PRN) NEB (02:07)
[2017-05-16] MEDS: AMPICILLIN-SULBACTAM INJ 3 GM in SODIUM CHLORIDE 0.9% INJ 100 ML IV SCH ×4 (04:34→20:22)
[2017-05-16] MEDS: SODIUM CHLOR 0.9% 1000 ML INJ 1,000 ML IV SCH ×3 (04:35→21:23)
[2017-05-16] MEDS: PHENAZOPYRIDINE HCL 100 MG TAB PO SCH ×3 (05:58→20:23)
[2017-05-16] MEDS: RESP: ALBUTEROL 2.5 MG/IPRATROPIUM 0.5 MG NEB (SCH) NEB ×3 (07:44→19:32)
[2017-05-16] MEDS: TAMSULOSIN HCL 0.4 MG CAP PO SCH (08:12)
[2017-05-16] MEDS: FLUCONAZOLE 200 MG TAB PO SCH (08:12)
[2017-05-16] MEDS: MORPHINE SULFATE 15 MG CONTROLLED RELEASE TAB PO SCH ×2 (08:13→20:24)
[2017-05-16] MEDS: SODIUM CHLORIDE 0.9% FLUSH 10 ML FLUSH IV FLUSH SCH ×2 (08:15→20:24)
[2017-05-16] MEDS: ZINC OXIDE 40% OINT 60 GM TUBE TOPICAL SCH (08:15)
[2017-05-16] MEDS ORDERED: VANCOMYCIN TROUGH ONE (08:45)
[2017-05-16 10:10] LABS: CREATININE 0.51 MG/DL (0.50-1.00)
[2017-05-16 11:49] LABS: VANCOMYCIN TROUGH 13.6 MCG/ML (5.0-10.0)
--- NOTE | 2017-05-16 14:36 | HHI.PR ---
Subjective Remarks Improvement in urinary symptoms compared to yesterday. Patient has no new complaints. She continues to have back pain related to her sacral decubitus ulcer. Objective Vital Signs Date Time Temp Pulse Resp B/P (MAP) Pulse Ox O2 Delivery O2 Flow Rate FiO2 05/16/17 12:00 98.1 95 18 96/55 (69) 97 05/16/17 08:00 97.2 108 16 94/53 (67) 96 05/16/17 07:40 99 Nasal Cannula 2.50 05/16/17 04:41 05/16/17 00:01 97.9 96 16 90/52 (65) 96 05/15/17 20:37 98.0 107 18 91/53 (66) 97 05/15/17 19:48 98 Nasal Cannula 2.50 05/15/17 16:00 96.5 104 16 95/59 (71) 95 I/O 05/15/17 05/15/17 05/15/17 05/16/17 05/16/17 05/16/17 07:00 15:00 23:00 07:00 15:00 23:00 Intake Total 1392 ml 444 ml 1090 ml 1134 ml 440 ml Output Total 650 ml 300 ml 600 ml Balance 742 ml 444 ml 790 ml 534 ml 440 ml Intake Oral 480 ml 444 ml 90 ml 440 ml IV Total 912 ml 1000 ml 1134 ml Output Urine Total 650 ml 300 ml 600 ml Bladder Scan Volume Amount 88 ml 114 ml # Voids 1 # Bowel Movements 0 0 0 Result Diagram: 05/16/17 0947 Objective Remarks GENERAL: NAD, A&Ox3 HEAD: Normocephalic. NECK: Supple, trachea midline. No lymphadenopathy. EYES: No scleral icterus. No injection or drainage. CARDIOVASCULAR: Regular rate and rhythm without murmurs, gallops, or rubs. RESPIRATORY: Breath sounds equal bilaterally. No accessory muscle use. GASTROINTESTINAL: Abdomen soft, non-tender, nondistended. MUSCULOSKELETAL: No cyanosis, or edema. SKIN: Warm and dry. Sacral decubitus ulcer NEURO: No focal neurological deficitis. A/P Problem List: (1) Decubitus ulcer, stage 3 with infection ICD Code: L89.93 - Pressure ulcer of unspecified site, stage 3; L08.9 - Local infection of the skin and subcutaneous tissue, unspecified Status: Acute (2) COPD (chronic obstructive pulmonary disease) ICD Code: J44.9 - Chronic obstructive pulmonary disease, unspecified Status: Acute (3) Sepsis secondary to UTI (4) Impaired mobility and activities of daily living ICD Code: Z74.09 - Other reduced mobility Status: Acute Assessment and Plan 61-year-old female admitted secondary to infected decubitus ulcer. Continue Pyridium for 2 more days. Monitor symptoms. External catheter is now in place. Labs reviewed. BUN, creatinine, and GFR have remained stable. Continue to monitor labs. Labs ordered for further monitoring. Decubitus ulcer, stage III Decubitus ulcer infection Cellulitis UTI Continue Unasyn Continue fluconazole Vancomycin and Zosyn were discontinued by ID Continue wound care No evidence of osteomyelitis on MRI COPD No active exacerbation Continue oxygen Bronchodilators as needed Sepsis Resolved Charbel Adams MD May 16, 2017 14:36
[2017-05-17] VITALS (7 sets, daily range): BP systolic 98–132; BP diastolic 62–82; PULSE 88–100; RESP 18–20; TEMP 97.6–98.6; O2SAT 93–99
[2017-05-17] MEDS: ZINC OXIDE 40% OINT 60 GM TUBE TOPICAL SCH ×3 (02:00→22:12)
[2017-05-17] MEDS: RESP: ALBUTEROL 2.5 MG/IPRATROPIUM 0.5 MG NEB (PRN) NEB (04:04)
[2017-05-17] MEDS: PHENAZOPYRIDINE HCL 100 MG TAB PO SCH ×2 (05:05→12:05)
[2017-05-17] MEDS: AMPICILLIN-SULBACTAM INJ 3 GM in SODIUM CHLORIDE 0.9% INJ 100 ML IV SCH ×4 (05:06→22:11)
[2017-05-17] MEDS: MORPHINE SULFATE 15 MG TAB PO PRN ×3 (05:06→18:06)
[2017-05-17] MEDS: SODIUM CHLOR 0.9% 1000 ML INJ 1,000 ML IV SCH ×3 (05:46→20:26)
[2017-05-17] MEDS: RESP: ALBUTEROL 2.5 MG/IPRATROPIUM 0.5 MG NEB (SCH) NEB ×3 (07:19→19:16)
[2017-05-17] MEDS: MORPHINE SULFATE 15 MG CONTROLLED RELEASE TAB PO SCH ×2 (08:29→20:27)
[2017-05-17] MEDS: TAMSULOSIN HCL 0.4 MG CAP PO SCH (08:29)
[2017-05-17] MEDS: FLUCONAZOLE 200 MG TAB PO SCH (08:29)
[2017-05-17] MEDS: SODIUM HYPOCHLORITE 0.125% 500 ML BTL TOPICAL SCH ×2 (08:30→22:12)
[2017-05-17] MEDS: SODIUM CHLORIDE 0.9% FLUSH 10 ML FLUSH IV FLUSH SCH ×2 (08:31→20:26)
[2017-05-17 08:32] LABS: AUTOMATED NEUTROPHIL # 2.7 TH/MM3 (1.8-7.7); BASOPHIL % 0.8 % (0.0-2.0); EOSINOPHIL # 0.7 TH/MM3 (0-0.4); EOSINOPHIL % 12.2 % (0.0-4.0); HEMATOCRIT 30.8 % (35.0-46.0); HEMOGLOBIN 9.6 GM/DL (11.6-15.3); LYMPH % 32.7 % (9.0-44.0); LYMPHOCYTE # 1.9 TH/MM3 (1.0-4.8); MEAN CELL VOLUME 89.8 FL (80.0-100.0); MEAN CORPUSCULAR HEMOGLOBIN 27.9 PG (27.0-34.0); MEAN CORPUSCULAR HGB CONC 31.1 % (32.0-36.0); MEAN PLATELET VOLUME 8.4 FL (7.0-11.0); MONO % 7.7 % (0.0-8.0); MONOCYTE # 0.4 TH/MM3 (0-0.9); NEUT % 46.6 % (16.0-70.0); PLATELET COUNT 207 TH/MM3 (150-450); RED BLOOD COUNT 3.43 MIL/MM3 (4.00-5.30); RED CELL DISTRIBUTION WIDTH 15.2 % (11.6-17.2); WHITE BLOOD COUNT 5.7 TH/MM3 (4.0-11.0)
[2017-05-17 08:37] LABS: CHLORIDE 104 MEQ/L (98-107); SODIUM (NA) 142 MEQ/L (136-145)
[2017-05-17 08:44] LABS: ALBUMIN 2.1 GM/DL (3.4-5.0); BICARBONATE 32.4 MEQ/L (21.0-32.0); BLOOD UREA NITROGEN 5 MG/DL (7-18); CALCIUM 8.1 MG/DL (8.5-10.1); GLUCOSE,RANDOM 80 MG/DL (74-106)
[2017-05-17 08:47] LABS: ALT (GPT) LESS THAN 6 U/L (10-53); AST (GOT) 20 U/L (15-37)
[2017-05-17 08:48] LABS: CREATININE 0.39 MG/DL (0.50-1.00); GLOMERULAR FILTRATION RATE 167 ML/MIN (>89); TOTAL BILIRUBIN ADULT 0.2 MG/DL (0.2-1.0)
[2017-05-17 08:49] LABS: TOTAL PROTEIN 5.5 GM/DL (6.4-8.2)
[2017-05-17 08:50] LABS: ALKALINE PHOSPHATASE 59 U/L (45-117)
--- NOTE | 2017-05-17 13:22 | HHI.PR ---
Subjective Remarks No complaints today. Some wheezing is present. No fevers. Objective Vital Signs Date Time Temp Pulse Resp B/P (MAP) Pulse Ox O2 Delivery O2 Flow Rate FiO2 05/17/17 08:00 98.2 88 98/62 (74) 99 05/17/17 07:20 97 Nasal Cannula 2.50 05/17/17 06:06 18 05/17/17 05:05 05/17/17 00:08 98.2 94 18 132/82 (99) 97 05/16/17 21:24 18 05/16/17 21:05 98.6 99 16 135/60 (85) 96 05/16/17 19:32 94 Nasal Cannula 2.50 05/16/17 16:00 97.3 92 14 116/65 (82) 93 I/O 05/16/17 05/16/17 05/16/17 05/17/17 05/17/17 05/17/17 07:00 15:00 23:00 07:00 15:00 23:00 Intake Total 1134 ml 440 ml 300 ml 1000 ml 905 ml Output Total 600 ml 300 ml 2000 ml Balance 534 ml 440 ml 0 ml -1000 ml 905 ml Intake Oral 440 ml 200 ml IV Total 1134 ml 100 ml 1000 ml 905 ml Output Urine Total 600 ml 300 ml 2000 ml # Voids 1 1 # Bowel Movements 0 0 Result Diagram: 05/17/1771205/17/17 07 Objective Remarks GENERAL: NAD, A&Ox3 HEAD: Normocephalic. NECK: Supple, trachea midline. No lymphadenopathy. EYES: No scleral icterus. No injection or drainage. CARDIOVASCULAR: Regular rate and rhythm without murmurs, gallops, or rubs. RESPIRATORY: Breath sounds equal bilaterally. No accessory muscle use. GASTROINTESTINAL: Abdomen soft, non-tender, nondistended. MUSCULOSKELETAL: No cyanosis, or edema. SKIN: Warm and dry. Sacral decubitus ulcer NEURO: No focal neurological deficitis. A/P Problem List: (1) Decubitus ulcer, stage 3 with infection ICD Code: L89.93 - Pressure ulcer of unspecified site, stage 3; L08.9 - Local infection of the skin and subcutaneous tissue, unspecified Status: Acute (2) COPD (chronic obstructive pulmonary disease) ICD Code: J44.9 - Chronic obstructive pulmonary disease, unspecified Status: Acute (3) Sepsis secondary to UTI (4) Impaired mobility and activities of daily living ICD Code: Z74.09 - Other reduced mobility Status: Acute Assessment and Plan 61-year-old female admitted secondary to infected decubitus ulcer. Peridium discontinued. Urinary symptoms are improved. Monitor symptoms. External catheter is in place. Labs reviewed. BUN, creatinine, and GFR have remained stable. Continue to monitor labs. Labs ordered for further monitoring. Decubitus ulcer, stage III Decubitus ulcer infection Cellulitis UTI Continue Unasyn Continue fluconazole Vancomycin and Zosyn were discontinued by ID Continue wound care No evidence of osteomyelitis on MRI COPD No active exacerbation Continue oxygen Bronchodilators as needed Sepsis Resolved Charbel Adams MD May 17, 2017 13:22
[2017-05-18 00:02] VITALS: BP 121/74; PULSE 91; RESP 18; TEMP 97.9; O2SAT 96
[2017-05-18] MEDS: MORPHINE SULFATE 15 MG TAB PO PRN ×4 (00:50→22:23)
[2017-05-18] MEDS: RESP: ALBUTEROL 2.5 MG/IPRATROPIUM 0.5 MG NEB (PRN) NEB ×3 (01:06→08:21)
[2017-05-18] MEDS: SODIUM CHLOR 0.9% 1000 ML INJ 1,000 ML IV SCH ×3 (03:40→18:28)
[2017-05-18] MEDS: AMPICILLIN-SULBACTAM INJ 3 GM in SODIUM CHLORIDE 0.9% INJ 100 ML IV SCH ×4 (03:40→21:27)
[2017-05-18 08:25] VITALS: O2SAT 98
[2017-05-18] MEDS: SODIUM CHLORIDE 0.9% FLUSH 10 ML FLUSH IV FLUSH SCH ×2 (09:00→21:00)
[2017-05-18] MEDS: TAMSULOSIN HCL 0.4 MG CAP PO SCH (09:53)
[2017-05-18] MEDS: FLUCONAZOLE 200 MG TAB PO SCH (09:53)
[2017-05-18] MEDS ORDERED: MORPHINE SULFATE 15 MG CONTROLLED RELEASE TAB PO ONE (10:15)
[2017-05-18] MEDS ORDERED: predniSONE 20 MG TAB PO ONE (10:30)
[2017-05-18] MEDS ORDERED: TOLTERODINE TARTRATE 2 MG CAP LA PO ONE (10:30)
[2017-05-18 12:00] VITALS: BP 137/82; PULSE 99; RESP 18; TEMP 98.3; O2SAT 93
--- NOTE | 2017-05-18 14:04 | HHI.PR ---
Subjective Remarks Patient's primary complaints today are incontinence and lower back pain. No other complaints. She is working with PT but not stable enough for home. Objective Vital Signs Date Time Temp Pulse Resp B/P (MAP) Pulse Ox O2 Delivery O2 Flow Rate FiO2 05/18/17 12:00 98.3 99 18 137/82 (100) 93 05/18/17 08:39 18 05/18/17 08:25 98 Nasal Cannula 3.00 05/18/17 04:39 05/18/17 00:02 97.9 91 18 121/74 (90) 96 05/17/17 21:27 20 05/17/17 20:10 97.6 100 20 115/82 (93) 98 05/17/17 19:16 93 Nasal Cannula 2.50 05/17/17 16:00 98.3 93 18 110/78 (89) 95 05/17/17 14:33 98.6 95 18 115/82 (93) 97 I/O 05/17/17 05/17/17 05/17/17 05/18/17 05/18/17 05/18/17 07:00 15:00 23:00 07:00 15:00 23:00 Intake Total 1000 ml 905 ml 925 ml 1100 ml Output Total 2000 ml 1300 ml Balance -1000 ml 905 ml 925 ml -200 ml Intake Oral 120 ml IV Total 1000 ml 905 ml 805 ml 1100 ml Output Urine Total 2000 ml 1300 ml # Voids 1 # Bowel Movements 0 Result Diagram: 05/17/17 0713 05/17/17 0713 Objective Remarks GENERAL: NAD, A&Ox3 HEAD: Normocephalic. NECK: Supple, trachea midline. No lymphadenopathy. EYES: No scleral icterus. No injection or drainage. CARDIOVASCULAR: Regular rate and rhythm without murmurs, gallops, or rubs. RESPIRATORY: Breath sounds equal bilaterally. No accessory muscle use. GASTROINTESTINAL: Abdomen soft, non-tender, nondistended. MUSCULOSKELETAL: No cyanosis, or edema. SKIN: Warm and dry. Sacral decubitus ulcer NEURO: No focal neurological deficitis. A/P Problem List: (1) Decubitus ulcer, stage 3 with infection ICD Code: L89.93 - Pressure ulcer of unspecified site, stage 3; L08.9 - Local infection of the skin and subcutaneous tissue, unspecified Status: Acute (2) COPD (chronic obstructive pulmonary disease) ICD Code: J44.9 - Chronic obstructive pulmonary disease, unspecified Status: Acute (3) Sepsis secondary to UTI (4) Impaired mobility and activities of daily living ICD Code: Z74.09 - Other reduced mobility Status: Acute Assessment and Plan 61-year-old female admitted secondary to infected decubitus ulcer. Low-dose prednisone and Detrol provided for urinary incontinence. Monitor for improvement. Increase MS Contin for better pain control. Reestablished duo nebs every 6 hours scheduled. Decubitus ulcer, stage III Decubitus ulcer infection Cellulitis UTI Continue Unasyn Continue fluconazole Vancomycin and Zosyn were discontinued by ID Continue wound care No evidence of osteomyelitis on MRI COPD No active exacerbation Continue oxygen Bronchodilators as needed Sepsis Resolved Charbel Adams MD May 18, 2017 14:04
[2017-05-18] MEDS: RESP: ALBUTEROL 2.5 MG/IPRATROPIUM 0.5 MG NEB (SCH) NEB ×2 (14:08→20:14)
[2017-05-18] MEDS: ZINC OXIDE 40% OINT 60 GM TUBE TOPICAL SCH ×2 (16:39→21:00)
[2017-05-18] MEDS: SODIUM HYPOCHLORITE 0.125% 500 ML BTL TOPICAL SCH ×2 (16:39→21:00)
[2017-05-18 18:00] VITALS: BP 118/81; PULSE 94; RESP 18; TEMP 96.6; O2SAT 98
[2017-05-18 20:00] VITALS: BP 138/83; PULSE 90; RESP 20; TEMP 98.2; O2SAT 96
[2017-05-18 20:15] VITALS: O2SAT 94
--- NOTE | 2017-05-18 20:59 | HHI.IDPN ---
Subjective Subjective Remarks Feels better Pain in sacral area markedly improved. No fever Antibiotics Unasyn and Fluconazole Lines Peripheral Past Medical History COPD Arthritis Urinary incontinence Past Surgical History Left hip replacement, bladder surgery Allergies: Coded Allergies: No Known Allergies (Verified Allergy, Unknown, 05/10/17) Review of Systems Constitutional Constitutional Remarks No fevers Objective . Vital Signs Date Time Temp Pulse Resp B/P (MAP) Pulse Ox O2 Delivery O2 Flow Rate FiO2 05/18/17 18:00 96.6 94 18 118/81 (93) 98 05/18/17 15:28 17 05/18/17 12:00 98.3 99 18 137/82 (100) 93 05/18/17 11:43 18 05/18/17 08:25 98 Nasal Cannula 3.00 05/18/17 04:39 05/18/17 00:02 97.9 91 18 121/74 (90) 96 05/17/17 21:27 20 05/18/17 05/18/17 05/19/17 15:00 23:00 07:00 Output Total 800 ml Balance -800 ml Output Urine Total 800 ml . Laboratory Tests Test 05/17/17 07:13 White Blood Count 5.7 TH/MM3 Red Blood Count 3.43 MIL/MM3 Hemoglobin 9.6 GM/DL Hematocrit 30.8 % Mean Corpuscular Volume 89.8 FL Mean Corpuscular Hemoglobin 27.9 PG Mean Corpuscular Hemoglobin Concent 31.1 % Red Cell Distribution Width 15.2 % Platelet Count 207 TH/MM3 Mean Platelet Volume 8.4 FL Neutrophils (%) (Auto) 46.6 % Lymphocytes (%) (Auto) 32.7 % Monocytes (%) (Auto) 7.7 % Eosinophils (%) (Auto) 12.2 % Basophils (%) (Auto) 0.8 % Neutrophils # (Auto) 2.7 TH/MM3 Lymphocytes # (Auto) 1.9 TH/MM3 Monocytes # (Auto) 0.4 TH/MM3 Eosinophils # (Auto) 0.7 TH/MM3 Basophils # (Auto) 0.0 TH/MM3 CBC Comment DIFF FINAL Differential Comment Laboratory Tests Test 05/17/17 07:13 Blood Urea Nitrogen 5 MG/DL Creatinine 0.39 MG/DL Random Glucose 80 MG/DL Total Protein 5.5 GM/DL Albumin 2.1 GM/DL Calcium Level 8.1 MG/DL Alkaline Phosphatase 59 U/L Aspartate Amino Transf (AST/SGOT) 20 U/L Alanine Aminotransferase (ALT/SGPT) LESS THAN 6 U/L Total Bilirubin 0.2 MG/DL Sodium Level 142 MEQ/L Potassium Level 3.8 MEQ/L Chloride Level 104 MEQ/L Carbon Dioxide Level 32.4 MEQ/L Anion Gap 6 MEQ/L Estimat Glomerular Filtration Rate 167 ML/MIN Physical Exam GENERAL: This is a elderly frail female who appears older than stated age. Skin : Sacral decubitus= Stage 3/4- No foul smell . Surrounding erythema is improved. CARDIOVASCULAR: Regular rate and rhythm without murmurs, gallops, or rubs. RESPIRATORY: Clear to auscultation. Breath sounds equal bilaterally. No wheezes , rales, or rhonchi. GASTROINTESTINAL: Abdomen soft, non-tender, nondistended. Normal active bowel sounds MUSCULOSKELETAL: Extremities without clubbing, cyanosis, or edema. NEURO: Alert & Oriented x4 to person, place, time, situation. Moves all ext x4 Assessment & Plan Diagnosis: (1) Decubitus ulcer, stage 3 with infection ICD Codes: L89.93 - Pressure ulcer of unspecified site, stage 3; L08.9 - Local infection of the skin and subcutaneous tissue, unspecified Status: Acute Plan: Patient is on Unasyn 3 g IV q6hrs Continue Fluconazole 200 mg po daily Local wound care If she continues to improve could do Augmentin with Fluconazole for 2 weeks when ready for discharge (2) Sepsis secondary to UTI ICD Codes: A41.9 - Sepsis, unspecified organism; N39.0 - Urinary tract infection, site not specified Plan: Re check UAC to see if clearing (3) Impaired mobility and activities of daily living ICD Codes: Z74.09 - Other reduced mobility Status: Acute Mee Le MD May 18, 2017 20:59
[2017-05-18] MEDS: MORPHINE SULFATE 30 MG CONTROLLED RELEASE TAB PO SCH (21:26)
[2017-05-19] VITALS: BP 105/75; PULSE 82; RESP 18; TEMP 97; O2SAT 97
[2017-05-19] MEDS: RESP: ALBUTEROL 2.5 MG/IPRATROPIUM 0.5 MG NEB (PRN) NEB (02:43)
[2017-05-19] MEDS: SODIUM CHLOR 0.9% 1000 ML INJ 1,000 ML IV SCH ×3 (03:02→18:30)
[2017-05-19] MEDS: AMPICILLIN-SULBACTAM INJ 3 GM in SODIUM CHLORIDE 0.9% INJ 100 ML IV SCH ×4 (04:06→21:47)
[2017-05-19] MEDS: MORPHINE SULFATE 15 MG TAB PO PRN ×4 (04:28→23:49)
[2017-05-19] MEDS: RESP: ALBUTEROL 2.5 MG/IPRATROPIUM 0.5 MG NEB (SCH) NEB ×3 (07:23→19:57)
[2017-05-19 07:26] VITALS: O2SAT 97
[2017-05-19 08:00] VITALS: BP 121/68; PULSE 72; RESP 20; TEMP 96.1; O2SAT 94
[2017-05-19] MEDS: TOLTERODINE TARTRATE 2 MG CAP LA PO SCH (08:53)
[2017-05-19] MEDS: MORPHINE SULFATE 30 MG CONTROLLED RELEASE TAB PO SCH ×2 (08:53→21:47)
[2017-05-19] MEDS: FLUCONAZOLE 200 MG TAB PO SCH (08:54)
[2017-05-19] MEDS: TAMSULOSIN HCL 0.4 MG CAP PO SCH (08:54)
[2017-05-19] MEDS: SODIUM HYPOCHLORITE 0.125% 500 ML BTL TOPICAL SCH ×2 (08:54→21:48)
[2017-05-19] MEDS: SODIUM CHLORIDE 0.9% FLUSH 10 ML FLUSH IV FLUSH SCH ×2 (08:54→21:47)
[2017-05-19] MEDS: ERGOCALCIFEROL (VIT D2) 50,000 UNIT CAP PO SCH (08:54)
[2017-05-19] MEDS: predniSONE 20 MG TAB PO SCH (08:54)
[2017-05-19] MEDS: ZINC OXIDE 40% OINT 60 GM TUBE TOPICAL SCH ×2 (09:00→21:48)
[2017-05-19 10:22] LABS: CREATININE 0.46 MG/DL (0.50-1.00)
--- NOTE | 2017-05-19 14:36 | HHI.PR ---
Subjective Remarks Mr. Nelson has slow gradual improvement in her physical capacity. She is not yet stable for home. Rehabilitation is offered. She declines option for rehabilitation inpatient, she prefers to return home. She does not qualify for coverage for home health care. Respiratory status remains oxygen dependent, patient is not sure that she qualifies for oxygen at home anymore. Objective Vital Signs Date Time Temp Pulse Resp B/P (MAP) Pulse Ox O2 Delivery O2 Flow Rate FiO2 05/19/17 08:00 96.1 72 20 121/68 (85) 94 05/19/17 07:26 97 Nasal Cannula 2.50 05/19/17 00:00 97.0 82 18 105/75 (85) 97 05/18/17 20:15 94 Nasal Cannula 2.50 05/18/17 20:00 98.2 90 20 138/83 (101) 96 05/18/17 18:00 96.6 94 18 118/81 (93) 98 05/18/17 15:28 17 I/O 05/18/17 05/18/17 05/18/17 05/19/17 05/19/17 05/19/17 07:00 15:00 23:00 07:00 15:00 23:00 Intake Total 1100 ml 100 ml 1500 ml Output Total 1300 ml 800 ml 350 ml Balance -200 ml -700 ml 1150 ml Intake Oral 400 ml IV Total 1100 ml 100 ml 1100 ml Output Urine Total 1300 ml 800 ml 350 ml # Bowel Movements 0 0 Result Diagram: 05/17/17 0713 05/19/17 0515 Objective Remarks GENERAL: NAD, A&Ox3 HEAD: Normocephalic. NECK: Supple, trachea midline. No lymphadenopathy. EYES: No scleral icterus. No injection or drainage. CARDIOVASCULAR: Regular rate and rhythm without murmurs, gallops, or rubs. RESPIRATORY: Breath sounds equal bilaterally. No accessory muscle use. GASTROINTESTINAL: Abdomen soft, non-tender, nondistended. MUSCULOSKELETAL: No cyanosis, or edema. SKIN: Warm and dry. Sacral decubitus ulcer NEURO: No focal neurological deficitis. A/P Problem List: (1) Decubitus ulcer, stage 3 with infection ICD Code: L89.93 - Pressure ulcer of unspecified site, stage 3; L08.9 - Local infection of the skin and subcutaneous tissue, unspecified Status: Acute (2) COPD (chronic obstructive pulmonary disease) ICD Code: J44.9 - Chronic obstructive pulmonary disease, unspecified Status: Acute (3) Sepsis secondary to UTI (4) Impaired mobility and activities of daily living ICD Code: Z74.09 - Other reduced mobility Status: Acute Assessment and Plan 61-year-old female admitted secondary to infected decubitus ulcer. Prednisone and Detrol have been of benefit. Decrease incontinence. Pain control also improved. Labs reviewed. Continue to monitor electrolytes. Continue to monitor labs. Labs ordered for further monitoring. Continue physical therapy. Decubitus ulcer, stage III Decubitus ulcer infection Cellulitis UTI Continue Unasyn Continue fluconazole Vancomycin and Zosyn were discontinued by ID Continue wound care No evidence of osteomyelitis on MRI COPD No active exacerbation Continue oxygen Bronchodilators as needed Sepsis Resolved Charbel Adams MD May 19, 2017 14:36
[2017-05-19 18:08] VITALS: BP 117/87; PULSE 96; RESP 20; TEMP 97.7; O2SAT 96
[2017-05-19 19:58] VITALS: O2SAT 98
[2017-05-19 20:00] VITALS: BP 125/69; PULSE 104; RESP 18; TEMP 97.5; O2SAT 96
[2017-05-20] VITALS (7 sets, daily range): BP systolic 111–135; BP diastolic 74–80; PULSE 91–117; RESP 17–20; TEMP 97.3–98.3; O2SAT 91–98
[2017-05-20] MEDS: SODIUM CHLOR 0.9% 1000 ML INJ 1,000 ML IV SCH ×3 (02:21→18:05)
[2017-05-20] MEDS: AMPICILLIN-SULBACTAM INJ 3 GM in SODIUM CHLORIDE 0.9% INJ 100 ML IV SCH ×4 (04:33→21:52)
[2017-05-20] MEDS: MORPHINE SULFATE 15 MG TAB PO PRN ×3 (05:59→18:04)
[2017-05-20 06:46] LABS: AUTOMATED NEUTROPHIL # 3.2 TH/MM3 (1.8-7.7); BASOPHIL % 0.8 % (0.0-2.0); EOSINOPHIL # 0.1 TH/MM3 (0-0.4); EOSINOPHIL % 0.9 % (0.0-4.0); HEMATOCRIT 29.1 % (35.0-46.0); HEMOGLOBIN 9.1 GM/DL (11.6-15.3); LYMPH % 32.1 % (9.0-44.0); LYMPHOCYTE # 1.8 TH/MM3 (1.0-4.8); MEAN CELL VOLUME 89.2 FL (80.0-100.0); MEAN CORPUSCULAR HGB CONC 31.3 % (32.0-36.0); MEAN PLATELET VOLUME 8.1 FL (7.0-11.0); MONO % 8.2 % (0.0-8.0); MONOCYTE # 0.5 TH/MM3 (0-0.9); PLATELET COUNT 295 TH/MM3 (150-450); RED BLOOD COUNT 3.26 MIL/MM3 (4.00-5.30); RED CELL DISTRIBUTION WIDTH 14.8 % (11.6-17.2); WHITE BLOOD COUNT 5.6 TH/MM3 (4.0-11.0)
[2017-05-20 07:04] LABS: CHLORIDE 102 MEQ/L (98-107); SODIUM (NA) 141 MEQ/L (136-145)
[2017-05-20 07:12] LABS: CALCIUM 8.8 MG/DL (8.5-10.1)
[2017-05-20 07:13] LABS: ALBUMIN 2.5 GM/DL (3.4-5.0); BICARBONATE 32.5 MEQ/L (21.0-32.0); BLOOD UREA NITROGEN 7 MG/DL (7-18); GLUCOSE,RANDOM 83 MG/DL (74-106)
[2017-05-20 07:16] LABS: ALT (GPT) 8 U/L (10-53); AST (GOT) 16 U/L (15-37); CREATININE 0.37 MG/DL (0.50-1.00); GLOMERULAR FILTRATION RATE 177 ML/MIN (>89)
[2017-05-20 07:17] LABS: TOTAL BILIRUBIN ADULT 0.2 MG/DL (0.2-1.0)
[2017-05-20 07:18] LABS: TOTAL PROTEIN 6.3 GM/DL (6.4-8.2)
[2017-05-20 07:19] LABS: ALKALINE PHOSPHATASE 65 U/L (45-117)
[2017-05-20] MEDS: RESP: ALBUTEROL 2.5 MG/IPRATROPIUM 0.5 MG NEB (SCH) NEB ×3 (07:24→19:35)
[2017-05-20] MEDS: TAMSULOSIN HCL 0.4 MG CAP PO SCH (08:51)
[2017-05-20] MEDS: MORPHINE SULFATE 30 MG CONTROLLED RELEASE TAB PO SCH ×2 (08:51→21:52)
[2017-05-20] MEDS: TOLTERODINE TARTRATE 2 MG CAP LA PO SCH (08:51)
[2017-05-20] MEDS: predniSONE 20 MG TAB PO SCH (08:51)
[2017-05-20] MEDS: SODIUM HYPOCHLORITE 0.125% 500 ML BTL TOPICAL SCH ×2 (08:52→21:54)
[2017-05-20] MEDS: FLUCONAZOLE 200 MG TAB PO SCH (08:52)
[2017-05-20] MEDS: ZINC OXIDE 40% OINT 60 GM TUBE TOPICAL SCH ×2 (08:53→21:54)
[2017-05-20] MEDS: SODIUM CHLORIDE 0.9% FLUSH 10 ML FLUSH IV FLUSH SCH ×2 (08:53→21:52)
--- NOTE | 2017-05-20 11:33 | HHI.PR ---
Subjective Remarks We discussed possibility of discharge to home. Patient's not feeling completely steady on her feet. She has been able to ambulate short distances around her room. She also requests that her boyfriend retrained in dressing changes prior to discharging. Another potential problem is a patient has no insurance and is oxygen dependent. Prior to coming here she has had oxygen at home. Oxygen could be repossessed or she could run out of oxygen without option for refill. She is in process of contacting oxygen supply company. Objective Vital Signs Date Time Temp Pulse Resp B/P (MAP) Pulse Ox O2 Delivery O2 Flow Rate FiO2 05/20/17 09:51 18 05/20/17 07:50 98.2 117 20 135/80 (98) 91 05/20/17 07:49 93 Nasal Cannula 2.50 05/20/17 07:00 18 05/20/17 00:00 97.3 91 18 111/75 (87) 94 05/19/17 20:00 97.5 104 18 125/69 (87) 96 05/19/17 19:58 98 Nasal Cannula 2.50 05/19/17 18:08 97.7 96 20 117/87 (97) 96 I/O 05/19/17 05/19/17 05/19/17 05/20/17 05/20/17 05/20/17 07:00 15:00 23:00 07:00 15:00 23:00 Intake Total 1500 ml 480 ml 1698 ml 300 ml Output Total 350 ml 300 ml 300 ml Balance 1150 ml 480 ml -300 ml 1398 ml 300 ml Intake Oral 400 ml 480 ml 280 ml 300 ml IV Total 1100 ml 1418 ml Output Urine Total 350 ml 300 ml 300 ml # Bowel Movements 0 0 Result Diagram: 05/20/17 0546 05/20/17 0546 Objective Remarks GENERAL: NAD, A&Ox3 HEAD: Normocephalic. NECK: Supple, trachea midline. No lymphadenopathy. EYES: No scleral icterus. No injection or drainage. CARDIOVASCULAR: Regular rate and rhythm without murmurs, gallops, or rubs. RESPIRATORY: Breath sounds equal bilaterally. No accessory muscle use. GASTROINTESTINAL: Abdomen soft, non-tender, nondistended. MUSCULOSKELETAL: No cyanosis, or edema. SKIN: Warm and dry. Sacral decubitus ulcer NEURO: No focal neurological deficitis. A/P Problem List: (1) Decubitus ulcer, stage 3 with infection ICD Code: L89.93 - Pressure ulcer of unspecified site, stage 3; L08.9 - Local infection of the skin and subcutaneous tissue, unspecified Status: Acute (2) COPD (chronic obstructive pulmonary disease) ICD Code: J44.9 - Chronic obstructive pulmonary disease, unspecified Status: Acute (3) Sepsis secondary to UTI (4) Impaired mobility and activities of daily living ICD Code: Z74.09 - Other reduced mobility Status: Acute Assessment and Plan 61-year-old female admitted secondary to infected decubitus ulcer. Continue to follow with PT, wound care, and Oxygen support. Oxygen walk test/ challenge today. Prednisone and Detrol have been of benefit. Decubitus ulcer, stage III Decubitus ulcer infection Cellulitis UTI Continue Unasyn Continue fluconazole Vancomycin and Zosyn were discontinued by ID Continue wound care No evidence of osteomyelitis on MRI COPD No active exacerbation Continue oxygen Bronchodilators as needed Sepsis Resolved Charbel Adams MD May 20, 2017 11:33
[2017-05-21] VITALS (7 sets, daily range): BP systolic 105–135; BP diastolic 62–85; PULSE 90–104; RESP 16–20; TEMP 96.2–98.6; O2SAT 92–97
[2017-05-21] MEDS: MORPHINE SULFATE 15 MG TAB PO PRN ×4 (00:07→18:44)
[2017-05-21] MEDS: AMPICILLIN-SULBACTAM INJ 3 GM in SODIUM CHLORIDE 0.9% INJ 100 ML IV SCH ×4 (03:21→20:46)
[2017-05-21] MEDS: SODIUM CHLOR 0.9% 1000 ML INJ 1,000 ML IV SCH ×3 (03:21→20:48)
[2017-05-21] MEDS: RESP: ALBUTEROL 2.5 MG/IPRATROPIUM 0.5 MG NEB (PRN) NEB (04:51)
[2017-05-21] MEDS: RESP: ALBUTEROL 2.5 MG/IPRATROPIUM 0.5 MG NEB (SCH) NEB ×3 (07:21→19:17)
[2017-05-21] MEDS: SODIUM CHLORIDE 0.9% FLUSH 10 ML FLUSH IV FLUSH SCH ×2 (09:00→20:48)
[2017-05-21] MEDS: TAMSULOSIN HCL 0.4 MG CAP PO SCH (09:40)
[2017-05-21] MEDS: FLUCONAZOLE 200 MG TAB PO SCH (09:40)
[2017-05-21] MEDS: TOLTERODINE TARTRATE 2 MG CAP LA PO SCH (09:40)
[2017-05-21] MEDS: predniSONE 20 MG TAB PO SCH (09:41)
[2017-05-21] MEDS: MORPHINE SULFATE 30 MG CONTROLLED RELEASE TAB PO SCH ×2 (09:41→20:45)
[2017-05-21] MEDS: SODIUM HYPOCHLORITE 0.125% 500 ML BTL TOPICAL SCH ×2 (09:43→20:48)
[2017-05-21] MEDS: ZINC OXIDE 40% OINT 60 GM TUBE TOPICAL SCH ×2 (09:44→20:48)
--- NOTE | 2017-05-21 10:36 | HHI.PR ---
Subjective Remarks Improvement with PT and improving wound. Risk with discharge due to Oxygen dependence without insurance currently. She says she does have left over oxygen at home. Oxygen walk test pending. Objective Vital Signs Date Time Temp Pulse Resp B/P (MAP) Pulse Ox O2 Delivery O2 Flow Rate FiO2 05/21/17 07:50 97.0 90 20 105/64 (78) 97 05/21/17 07:23 93 Nasal Cannula 2.50 05/21/17 06:56 20 05/21/17 00:00 98.6 95 16 112/85 (94) 96 05/20/17 21:55 98.3 96 17 113/77 (89) 96 05/20/17 19:35 98 Nasal Cannula 2.50 05/20/17 15:24 98.0 107 20 115/76 (89) 93 05/20/17 11:50 97.5 97 20 119/74 (89) 95 I/O 05/20/17 05/20/17 05/20/17 05/21/17 05/21/17 05/21/17 07:00 15:00 23:00 07:00 15:00 23:00 Intake Total 1698 ml 1182 ml 2415 ml 1445 ml 200 ml Output Total 300 ml 475 ml Balance 1398 ml 1182 ml 1940 ml 1445 ml 200 ml Intake Oral 280 ml 300 ml 1440 ml 200 ml IV Total 1418 ml 882 ml 975 ml 1445 ml Output Urine Total 300 ml 475 ml # Voids 3 1 # Bowel Movements 0 0 Result Diagram: 05/20/1746 05/20/17 0546 Objective Remarks GENERAL: NAD, A&Ox3 HEAD: Normocephalic. NECK: Supple, trachea midline. No lymphadenopathy. EYES: No scleral icterus. No injection or drainage. CARDIOVASCULAR: Regular rate and rhythm without murmurs, gallops, or rubs. RESPIRATORY: Breath sounds equal bilaterally. No accessory muscle use. GASTROINTESTINAL: Abdomen soft, non-tender, nondistended. MUSCULOSKELETAL: No cyanosis, or edema. SKIN: Warm and dry. Sacral decubitus ulcer NEURO: No focal neurological deficitis. A/P Problem List: (1) Decubitus ulcer, stage 3 with infection ICD Code: L89.93 - Pressure ulcer of unspecified site, stage 3; L08.9 - Local infection of the skin and subcutaneous tissue, unspecified Status: Acute (2) COPD (chronic obstructive pulmonary disease) ICD Code: J44.9 - Chronic obstructive pulmonary disease, unspecified Status: Acute (3) Sepsis secondary to UTI (4) Impaired mobility and activities of daily living ICD Code: Z74.09 - Other reduced mobility Status: Acute Assessment and Plan 61-year-old female admitted secondary to infected decubitus ulcer. Continue to follow with PT, wound care, and Oxygen support. Oxygen walk test/ challenge today. Prednisone and Detrol have been of benefit. Plan for discharge tomorrow. Decubitus ulcer, stage III Decubitus ulcer infection Cellulitis UTI Continue Unasyn Continue fluconazole Vancomycin and Zosyn were discontinued by ID Continue wound care No evidence of osteomyelitis on MRI COPD No active exacerbation Continue oxygen Bronchodilators as needed Sepsis Resolved Charbel Adams MD May 21, 2017 10:36
[2017-05-21] MEDS: ZOLPIDEM TARTRATE 5 MG TAB PO PRN (22:31)
[2017-05-22] VITALS (7 sets, daily range): BP systolic 118–165; BP diastolic 75–93; PULSE 88–111; RESP 16–20; TEMP 97–98.7; O2SAT 90–97
[2017-05-22 00:57] LABS: BILIRUBIN, URINE NEG (NEG); BLOOD, URINE LARGE (NEG); GLUCOSE,URINE NEG (NEG); KETONE, URINE NEG (NEG); NITRITE,URINE NEG (NEG); URINE COLOR YELLOW (YELLW/STRAW); URINE LEUKOCYTE ESTERASE SMALL (NEG)
[2017-05-22] MEDS: MORPHINE SULFATE 15 MG TAB PO PRN ×4 (01:01→19:59)
[2017-05-22 01:12] LABS: BACTERIA, URINE RARE /hpf; SQUAMOUS EPITHELIAL CELL URINE 0-5 /hpf (0-5)
[2017-05-22] MEDS: RESP: ALBUTEROL 2.5 MG/IPRATROPIUM 0.5 MG NEB (PRN) NEB ×2 (01:32→14:14)
[2017-05-22] MEDS: SODIUM CHLOR 0.9% 1000 ML INJ 1,000 ML IV SCH ×2 (02:30→04:29)
[2017-05-22] MEDS: AMPICILLIN-SULBACTAM INJ 3 GM in SODIUM CHLORIDE 0.9% INJ 100 ML IV SCH ×4 (04:00→20:57)
[2017-05-22] MEDS: RESP: ALBUTEROL 2.5 MG/IPRATROPIUM 0.5 MG NEB (SCH) NEB ×2 (07:12→19:20)
[2017-05-22] MEDS: SODIUM CHLORIDE 0.9% FLUSH 10 ML FLUSH IV FLUSH SCH ×2 (09:20→19:59)
[2017-05-22] MEDS: FLUCONAZOLE 200 MG TAB PO SCH (09:21)
[2017-05-22] MEDS: TAMSULOSIN HCL 0.4 MG CAP PO SCH (09:21)
[2017-05-22] MEDS: TOLTERODINE TARTRATE 2 MG CAP LA PO SCH (09:21)
[2017-05-22] MEDS: MORPHINE SULFATE 30 MG CONTROLLED RELEASE TAB PO SCH ×2 (09:21→20:56)
[2017-05-22] MEDS: ZINC OXIDE 40% OINT 60 GM TUBE TOPICAL SCH ×2 (09:24→21:00)
[2017-05-22] MEDS: SODIUM HYPOCHLORITE 0.125% 500 ML BTL TOPICAL SCH ×2 (09:24→21:00)
--- NOTE | 2017-05-22 10:39 | HHI.FF ---
Face to Face Verification Diagnosis: (1) Hypoxia (2) Decubital ulcer (3) Impaired mobility and activities of daily living (4) COPD (chronic obstructive pulmonary disease) Home Health Nursing Order: Wound care and dressing changes I have seen patient Toyin Nelson on 05/22/17. My clinical findings support the need for the requested home health care services because: Ltd mobility - disease progression Deconditioned w/ increased weakness Limited ability to care for self High risk of falls I certify that my clinical findings support that this patient is homebound because: Unsteady gait/balance Unsafe to leave home unassisted Unable to use public transportation Charbel Adams MD May 22, 2017 10:39
--- NOTE | 2017-05-22 11:03 | HHI.DS ---
Discharge Summary Admission Date May 10, 2017 at 17:29 Discharge Date: May 22, 2017 Admitting Diagnosis INFECTED DECUB ULCER,UTI (1) Decubitus ulcer, stage 3 with infection ICD Code: L89.93 - Pressure ulcer of unspecified site, stage 3; L08.9 - Local infection of the skin and subcutaneous tissue, unspecified Diagnosis: Principal Status: Acute (2) COPD (chronic obstructive pulmonary disease) ICD Code: J44.9 - Chronic obstructive pulmonary disease, unspecified Diagnosis: Principal Status: Acute (3) Sepsis secondary to UTI Diagnosis: Principal Procedures None Brief History - From Admission This patient is a 61-year-old female with a history of COPD who comes in with about a month or so of increased pain on her right buttocks. Several months ago she had a left hip replacement has been poorly ambulatory. She had a catheter postoperatively and then it was removed. She notes problems with urinary incontinence and fecal incontinence and has been home unable to care for herself well. The stage IV ulcer which appears to be infected with surrounding erythema and tenderness. Patient been admitted to the hospital for this. Pain has been severe and improved pain medication CBC/BMP: 05/20/17 0546 05/20/17 0546 Significant Findings Laboratory Tests Test 05/20/17 05:46 05/22/17 00:20 Red Blood Count 3.26 MIL/MM3 (4.00-5.30) Hemoglobin 9.1 GM/DL (11.6-15.3) Hematocrit 29.1 % (35.0-46.0) Mean Corpuscular Hemoglobin Concent 31.3 % (32.0-36.0) Monocytes (%) (Auto) 8.2 % (0.0-8.0) Creatinine 0.37 MG/DL (0.50-1.00) Total Protein 6.3 GM/DL (6.4-8.2) Albumin 2.5 GM/DL (3.4-5.0) Alanine Aminotransferase (ALT/SGPT) 8 U/L (10-53) Carbon Dioxide Level 32.5 MEQ/L (21.0-32.0) Urine Turbidity CLOUDY (CLEAR) Urine Occult Blood LARGE (NEG) Urine Leukocyte Esterase SMALL (NEG) Urine RBC 50-99 /hpf (0-3) Urine WBC 20-24 /hpf (0-5) Urine Bacteria RARE /hpf (NONE) PE at Discharge GENERAL: This is a elderly frail female who appears older than stated age. She has increased AP chest diameter and right sacral decubiti CARDIOVASCULAR: Regular rate and rhythm without murmurs, gallops, or rubs. RESPIRATORY: Clear to auscultation. Breath sounds equal bilaterally. No wheezes , rales, or rhonchi. GASTROINTESTINAL: Abdomen soft, non-tender, nondistended. Normal active bowel sounds MUSCULOSKELETAL: Extremities without clubbing, cyanosis, or edema. NEURO: Alert & Oriented x4 to person, place, time, situation. Moves all ext x4 Hospital Course Mrs. Nelson is a 61-year-old female. She was admitted secondary to an infected decubitus ulcer. To cutis ulcer was stage IV. It was causing physical immobility. Antibiotic treatments were provided and will continue at time of discharge. Respiratory status is back to baseline and she is oxygen dependent at home. Slow progression with PT but at this point she is demonstrating stability on her feet. She will build to have physical therapy at discharge so she had physical therapy here to regain function enough to tolerate activities at home. She is at this place now and will be stable for discharge home tomorrow, when her boyfriend returns to home. Pt Condition on Discharge: Stable Discharge Disposition: Disch w/ Home Health Serv Discharge Time: <= 30 minutes Discharge Instructions DIET: Follow Instructions for: As Tolerated, No Restrictions Activities you can perform: Regular-No Restrictions, Full Weight Bearing Follow up Referrals: PCP Follow-up - 2 Weeks New Medications: Amoxicillin-Clavulanate (Augmentin) 875-125 Mg Tab 1 TAB PO BID for Infection, #28 TAB 0 Refills Docusate Sodium (Colace) 100 Mg Capsule 100 MG PO BID PRN for CONSTIPATION, #60 CAP 0 Refills Lactobacillus Acidophilus (Lactobacillus Acidophilus) 1 Billion Cell Tab 1 TAB PO TIDAC for Nutritional Supplement, #60 TAB 0 Refills Fluconazole (Diflucan) 200 Mg Tab 200 MG PO DAILY for Infection, #14 TAB Morphine ER (Morphine ER) 30 Mg Tab 30 MG PO Q12HR for Pain Management, #60 TAB Sennosides (Senna-Lax) 8.6 Mg Tab 17.2 MG PO Q12HR PRN for Moderate constipation, #62 TAB Sodium Hypochlorite Topical (Dakins Solution Half Strength Topical) 0.2-0.25 % Soln 500 ML TOPICAL BID for wpound care for 60 Days, ML [Zinc Oxide 40% Oint] () 60 APPLIC/60 GM OINT 1 APPLIC TOPICAL BID for skin , #62 Continued Medications: Albuterol 18 GM Inh (Ventolin Hfa 18 GM Inh) 90 Mcg/Act Aer 2 PUFF INH Q4-6H PRN for SHORTNESS OF BREATH, #1 INHALER [address] (Aspirin Adult Low Strength) 81 Mg Tabdr 81 MG PO DAILY for Blood Clot Prevention, TAB Budesonide-Formoterol Inh (Symbicort Inh) 160-4.5 Mcg/Act Aero 1 PUFF INH Q12HR, #1 INHALER 0 Refills Ergocalciferol (Ergocalciferol) 50,000 Unit Cap 60473 UNITS PO Q7D for bone for 30 Days, CAP Hydrocodone-Acetaminophen (Hydrocodone-Acetaminophen) 5-325 mg Tab 1 TAB PO Q6 PRN for PAIN, #60 TAB 0 Refills (This prescription has been renewed) Ipratropium-Albuterol Neb (Duoneb) 0.5-2.5 Mg/3 Ml Neb 3 ML NEB Q2HR PRN for SHORTNESS OF BREATH, #1 BOX 0 Refills Multiple Vitamins W/ Minerals (Thera M Plus) 1 Tab 1 TAB PO BID for Nutritional Supplement, #30 TAB Pantoprazole (Pantoprazole) 40 Mg Tab 40 MG PO DAILY for PUD for 30 Days, #30 TAB 3 Refills Polyethylene Glycol 3350 Powder (Miralax Powder) 17 Gm Powd 17 GM PO DAILY PRN for CONSTIPATION, #1 CAN 0 Refills Mix and dissolve one measuring capful (17 grams) in water or juice. Tamsulosin (Flomax) 0.4 Mg Cap 0.4 MG PO DAILY, #30 CAP Zolpidem (Ambien) 5 Mg Tab 5 MG PO HS PRN for SLEEP, #30 TAB [Ipratropium [place]] () 0.5 MG/2.5 ML NEBU 0.5 MG NEB Q2HR NEB PRN for wheezing, #1 BOX [Ipratropium [place]] () 0.5 MG/2.5 ML NEBU 0.5 MG NEB Q4HR NEB for resspfai for 30 Days, #60 ML Discontinued Medications: Levofloxacin (Levaquin) 500 Mg Tablet 500 MG PO DAILY for Infection for 7 Days, #7 TAB Charbel Adams MD May 22, 2017 11:03
[2017-05-22] MEDS ORDERED: AUGM875T3 PO (11:08)
[2017-05-22] MEDS ORDERED: HYDR-3516 PO (11:08)
[2017-05-22] MEDS ORDERED: DIFL200T PO (11:08)
[2017-05-22] MEDS ORDERED: MORP1TAB25 PO (11:08)
[2017-05-22] MEDS ORDERED: LACTTAB8 PO (11:08)
[2017-05-22] MEDS ORDERED: COLA100C5 PO (11:10)
[2017-05-22] MEDS ORDERED: OXYGENDME NAS.CANULA (11:52)
[2017-05-23 00:16] VITALS: BP 115/76; PULSE 94; RESP 18; TEMP 97.9; O2SAT 97
[2017-05-23] MEDS: AMPICILLIN-SULBACTAM INJ 3 GM in SODIUM CHLORIDE 0.9% INJ 100 ML IV SCH ×2 (04:16→10:00)
[2017-05-23] MEDS: MORPHINE SULFATE 15 MG TAB PO PRN ×2 (04:16→10:14)
[2017-05-23] MEDS: RESP: ALBUTEROL 2.5 MG/IPRATROPIUM 0.5 MG NEB (PRN) NEB (05:09)
[2017-05-23 07:28] VITALS: O2SAT 96
[2017-05-23] MEDS: RESP: ALBUTEROL 2.5 MG/IPRATROPIUM 0.5 MG NEB (SCH) NEB ×2 (07:28→14:58)
[2017-05-23 08:00] VITALS: BP 114/79; PULSE 89; RESP 18; TEMP 98; O2SAT 98
[2017-05-23] MEDS: TOLTERODINE TARTRATE 2 MG CAP LA PO SCH (08:00)
[2017-05-23] MEDS: MORPHINE SULFATE 30 MG CONTROLLED RELEASE TAB PO SCH (08:00)
[2017-05-23] MEDS: SODIUM HYPOCHLORITE 0.125% 500 ML BTL TOPICAL SCH (08:01)
[2017-05-23] MEDS: TAMSULOSIN HCL 0.4 MG CAP PO SCH (08:01)
[2017-05-23] MEDS: SODIUM CHLORIDE 0.9% FLUSH 10 ML FLUSH IV FLUSH SCH (08:01)
[2017-05-23] MEDS: FLUCONAZOLE 200 MG TAB PO SCH (08:01)
[2017-05-23] MEDS: ZINC OXIDE 40% OINT 60 GM TUBE TOPICAL SCH (08:02)
[2017-05-23] MEDS ORDERED: DETR2CAP PO (10:26)
--- NOTE | 2017-05-23 11:26 | HHI.PR ---
Subjective Remarks Patient continues to improve. Medically stable and cleared for discharge home now. Objective Vital Signs Date Time Temp Pulse Resp B/P (MAP) Pulse Ox O2 Delivery O2 Flow Rate FiO2 05/23/17 08:00 98.0 89 18 114/79 (91) 98 05/23/17 07:28 96 Nasal Cannula 2.50 05/23/17 00:16 97.9 94 18 115/76 (89) 97 05/22/17 20:20 98.3 88 16 118/75 (89) 97 05/22/17 19:20 94 Nasal Cannula 2.50 05/22/17 16:00 97.9 94 16 120/80 (93) 95 05/22/17 12:00 97.0 90 20 121/75 (90) 95 I/O 05/22/17 05/22/17 05/22/17 05/23/17 05/23/17 05/23/17 06:59 14:59 22:59 06:59 14:59 22:59 Intake Total 640 ml 2660 ml 100 ml 340 ml Output Total 925 ml 1000 ml 1000 ml 2000 ml Balance -285 ml 1660 ml -900 ml -1660 ml Intake Oral 640 ml 1560 ml 240 ml IV Total 1100 ml 100 ml 100 ml Output Urine Total 925 ml 1000 ml 1000 ml 2000 ml # Bowel Movements 0 Result Diagram: 05/20/1754505/20/17545 Objective Remarks GENERAL: NAD, A&Ox3 HEAD: Normocephalic. NECK: Supple, trachea midline. No lymphadenopathy. EYES: No scleral icterus. No injection or drainage. CARDIOVASCULAR: Regular rate and rhythm without murmurs, gallops, or rubs. RESPIRATORY: Breath sounds equal bilaterally. No accessory muscle use. GASTROINTESTINAL: Abdomen soft, non-tender, nondistended. MUSCULOSKELETAL: No cyanosis, or edema. SKIN: Warm and dry. Sacral decubitus ulcer NEURO: No focal neurological deficitis. A/P Problem List: (1) Decubitus ulcer, stage 3 with infection ICD Code: L89.93 - Pressure ulcer of unspecified site, stage 3; L08.9 - Local infection of the skin and subcutaneous tissue, unspecified Status: Acute (2) COPD (chronic obstructive pulmonary disease) ICD Code: J44.9 - Chronic obstructive pulmonary disease, unspecified Status: Acute (3) Sepsis secondary to UTI (4) Impaired mobility and activities of daily living ICD Code: Z74.09 - Other reduced mobility Status: Acute Assessment and Plan 61-year-old female admitted secondary to infected decubitus ulcer. Continue oxygen at home. Finish antibiotic treatments at home. Plan for discharge today. Decubitus ulcer, stage III Decubitus ulcer infection Cellulitis UTI Change to by mouth treatments of antibiotics as listed on discharge summary. Continue wound care No evidence of osteomyelitis on MRI COPD At baseline now. Continue oxygen Bronchodilators as needed Sepsis Resolved Charbel Adams MD May 23, 2017 11:26
[2017-05-23 12:00] VITALS: BP 105/57; PULSE 92; RESP 20; TEMP 97.5; O2SAT 95
== END 2017-05-23 16:11 | disposition home health service (06) | DRG 871 ==
LOC: PHED 13:22 → PHEDA 17:29 → PH3A 18:16
PROVIDERS: ADMIT Hospitalist; ATTEND Hospitalist
DX: A41.9 Sepsis, unspecified organism (principal); L89.154 Pressure ulcer of sacral region, stage 4; I95.89 Other hypotension; Z99.81 Dependence on supplemental oxygen; N39.0 Urinary tract infection, site not specified; B95.2 Enterococcus as the cause of diseases classified elsewhere; L08.89 Other specified local infections of the skin and subcutaneous tissue; J44.9 Chronic obstructive pulmonary disease, unspecified; Z96.642 Presence of left artificial hip joint; R32 Unspecified urinary incontinence; M19.90 Unspecified osteoarthritis, unspecified site; Z72.0 Tobacco use; Z74.09 Other reduced mobility
CPT/HCPCS: 51702; 71045; 72197; 78315; 80048; 80053; 80202; 81001; 82306; 82565; 83605; 85025; 86140; 86403; 87040; 87070; 87077; 87086; 87106; 87186; 87205; 94618; 94640; 94664; 96365; 96367; A9503; A9579; J0295; J1885; J2060; J2543; J3370; J7030; J7050; J7512